=== PATIENT | female | born 1950 | race Caucasian/White ===

== ENCOUNTER → 2016-06-04 | Outpatient (CLI) | payer MEDICARE, BC ==
[2016-06-04 11:36] LABS: Blood Urea Nitrogen 8 mg/dL (7-17); Non-African American GFR(MDRD) >60 (>60 ml/min/1.73 sqM)
--- NOTE | 2016-06-04 12:22 | CT ---
EXAMINATION TYPE: CT angio chest DATE OF EXAM: 06/04/2016 12:17 PM COMPARISON: Previous study dated 04/22/2016 HISTORY: SOB, possible PE CT DLP: 458 mGycm Automated exposure control for dose reduction was used. CONTRAST: CTA scan of the thorax is performed with IV Contrast, patient injected with 100 mL of Omnipaque 350, pulmonary embolism protocol. . FINDINGS: There has been a previous right-sided mastectomy. There is some mild groundglass opacity there is a stable 4.8 mm nodule in the left upper lobe. There is a second, stable 3.6 mm nodule in the lateral aspect of the right upper lobe. At least one other, subcentimeter nodular opacity is noted along the major fissure on the right. There is atelectatic change present in the left lingula. There is no significant axillary or internal mammary adenopathy. There has developed an 8 mm pretrach eal lymph node. There is some stable adenopathy in the right hilum. This examination is negative for pulmonary embolus. The aorta is normal in caliber without evidence of dissection. There is no pleural or pericardial fluid identified. Visualized portions of the upper abdomen are unremarkable. IMPRESSION: 1. THIS EXAMINATION IS NEGATIVE FOR PULMONARY EMBOLUS. 2. MILD GROUNDGLASS OPACITY WITHIN THE UPPER LOBES BILATERALLY MAY REPRESENT ONGOING ALVEOLITIS. 4. STABLE, BILATERAL PULMONARY NODULES. 5. NEW ADENOPATHY IN THE PRETRACHEAL REGION. 6. STATUS POST RIGHT-SIDED MASTECTOMY.
== END | disposition home or self-care (01) ==
LOC: RADCTMAIN 11:07
PROVIDERS: ATTEND Internal Medicine Sleep Medicine
DX: R91.8 Other nonspecific abnormal finding of lung field (principal); R59.0 Localized enlarged lymph nodes; Z90.11 Acquired absence of right breast and nipple
CPT/HCPCS: 82565; 84520; 71275; 36415; Q9967

== ENCOUNTER → 2016-07-23 | Outpatient (CLI) | payer MEDICARE, BC ==
--- NOTE | 2016-07-23 09:05 | US ---
EXAMINATION TYPE: US thyroid st tissue head/neck DATE OF EXAM: 07/23/2016 8:19 AM COMPARISON: Previous study dated 02/20/2016. CLINICAL HISTORY: Nodule E04.1. GLAND SIZE: Right Lobe: 3.7 x 1.6 x 1.2 cm Overall Parenchyma: heterogenous Left Lobe: 3.3 x 1.7 x 1.3 cm Overall Parenchyma: heterogeneous Isthmus Thickness: 0.3 cm NODULES RIGHT: # of nodules measured on right: 1 1. 0.4 X 0.3 x 0.4 cm hypoechoic solid nodule at the lower pole with well-defined margins; . This nodule is wider than tall Prior size: 0.4 x 0.3 x 0.4 cm LEFT: # of nodules measured on left: 0 ISTHMUS: # of nodules measured in the isthmus: 0 TECHNOLOGIST IMPRESSION: Bilateral neck scanned, no abnormal lymphadenopathy noted. stable small nodule IMPRESSION: Stable, right-sided thyroid nodule.
== END | disposition home or self-care (01) ==
LOC: RADUSWWP 07:49
PROVIDERS: ATTEND Family Medicine
DX: E04.1 Nontoxic single thyroid nodule (principal)
CPT/HCPCS: 76536

== ENCOUNTER → 2016-11-12 | Outpatient (CLI) | payer MEDICARE, BC ==
[2016-11-12 07:18] LABS: Blood Urea Nitrogen 18 mg/dL (7-17); Non-African American GFR(MDRD) >60 (>60 ml/min/1.73 sqM)
--- NOTE | 2016-11-12 08:32 | CT ---
EXAMINATION TYPE: CT chest w con DATE OF EXAM: 11/12/2016 COMPARISON: CTA 06/04/2016 HISTORY: Follow up to prior abn CT, history of breast CA CT DLP: 463.6 (chest and shoulder imaging) mGycm, Automated exposure control for dose reduction was u sed. CONTRAST: Performed injected with 100 mL of Omnipaque 300. TECHNIQUE: Axial images were obtained at 5 mm thick sections. Reconstructed images are reviewed on [id number] computer in the coronal plane. FINDINGS: Portion of the thyroid visualized is normal. There is some streak opacities within the lingula and right middle lobe most likely on the basis of a telectasis. Mild pneumonia is not excluded. Other etiologies including neoplasm are considered less l ikely. The thickening along the right mediastinal border within the right middle lobe was present pre viously and appears stable. Lingular streak opacities are new. No enlarged mediastinal or hilar adenopathy is evident. Stable small mediastinal lymph nodes remain present. The ascending aorta diameter at the level of the main pulmonary artery is 3.3 cm. The main pulmonary artery diameter at the bifurcation is 2.2 cm. Right mastectomy is evident. Limited CT sections are obtained through the upper abdomen. There may be a retrocaval right renal art davonte. Vascular calcifications within the aorta. Gallbladder surgically absent. Osseous structures within the [id number] are unremarkable. Stimulator leads are within the thoraci c spinal canal. IMPRESSIONS: 1. Streak opacities within the lingula and right middle lobe may be related to atelectasis. Some scar ring is not excluded along the right cardio mediastinal border. This area appears stable from May 2016
--- NOTE | 2016-11-12 08:36 | CT ---
EXAMINATION TYPE: CT shoulder LT w con DATE OF EXAM: 11/12/2016 COMPARISON: NONE HISTORY: Lt shoulder pain, history of breast CA CT DLP: 463.6 (for chest and shoulder imaging) mGycm Automated exposure control for dose reduction was used. CONTRAST: Performed with IV Contrast, patient injected with 100 mL of Omnipaque 300. TECHNIQUE: Axial images 2 mm thick sections. Reconstructed images in the coronal and sagittal plane. Three-D reconstructed images performed separately on the [employer] computer by the technologist of the o sseous structures was performed. This is somewhat limited with contrast present. FINDINGS: Soft tissues through the left shoulder appear normal. No suspicious axillary adenopathy is evident. T he acromioclavicular junction is normal. Clavicle appears unremarkable. Some narrowing of the glenohu meral joint space is present compatible some osteoarthritic degenerative change. No suspicious lytic lesions are evident. No sclerotic lesions are evident. Scapula is unremarkable. Visualized ribs appea r normal. IMPRESSION: 1. NO SUSPICIOUS ACUTE CHANGES LEFT SHOULDER. 2. NO SUSPICIOUS METASTATIC LESIONS IDENTIFIED BY CT.
== END | disposition home or self-care (01) ==
LOC: RADCTMAIN 06:41
PROVIDERS: ATTEND Internal Medicine Rheumatology
DX: R91.8 Other nonspecific abnormal finding of lung field (principal); S46.022A Laceration of muscle(s) and tendon(s) of the rotator cuff of left shoulder, initial encounter
CPT/HCPCS: 82565; 84520; 71260; 36415; 73201; Q9967

== ENCOUNTER → 2017-01-24 | Outpatient (CLI) | payer MEDICARE, BC ==
--- NOTE | 2017-01-24 08:38 | US ---
EXAMINATION TYPE: US thyroid st tissue head/neck DATE OF EXAM: 01/24/2017 COMPARISON: 07/2016 US CLINICAL HISTORY: Goiter E04.9. no thyroid complaints per patient GLAND SIZE: Right Lobe: 4.1 x 1.0 x 1.2 cm Overall Parenchyma: homogenous Left Lobe: 3.4 x 1.5 x 1.5 cm Overall Parenchyma: homogeneous Isthmus Thickness: 0.3 cm NODULES RIGHT: # of nodules measured on right: 2 1. 0.5 X 0.3 x 0.4 cm hypoechoic solid nodule at the lower pole with well-defined margins. This no dule is wider than tall and shows no intranodular vascularity. Prior size: 0.4 x 0.3 x 0.4 cm 2. 0.4 X 0.3 x 0.3 cm hypoechoic solid nodule at the mid pole with well-defined margins. This nodul e is wider than tall and shows no intranodular vascularity. Prior size: not seen on prior LEFT: # of nodules measured on left: 1 1. 0.4 X 0.2 x 0.2 cm hypoechoic cystic nodule at the mid pole with well-defined margins. This nod ule is wider than tall and shows no intranodular vascularity. Prior size: not seen on prior ISTHMUS: # of nodules measured in the isthmus: 0 Bilateral neck scanned, no evidence of lymphadenopathy. IMPRESSION: Overall stable subcentimeter right thyroid nodule and two new subcentimeter thyroid nodules in a none nlarged and otherwise homogeneous thyroid gland.
== END | disposition home or self-care (01) ==
LOC: RADUSWWP 08:04
PROVIDERS: ATTEND Family Medicine
DX: E04.2 Nontoxic multinodular goiter (principal)
CPT/HCPCS: 76536

== ENCOUNTER 2017-07-02 14:19 | Inpatient (IN) | payer MEDICARE, BC ==
[2017-07-02] MEDS ORDERED: DILTIAZEM 5 MG/ML 5 ML VIAL IVP STA (14:49)
[2017-07-02] MEDS ORDERED: SODIUM CHLORIDE 0.9% 1,000 ML IV STA (14:49)
[2017-07-02] MEDS ORDERED: DILTIAZEM 125 MG in SODIUM CHLORIDE 0.9% 100 ML IV ONE (14:49)
--- NOTE | 2017-07-02 15:48 | ED ---
General Adult HPI - General Chief complaint: Chest Pain Stated complaint: Chest Pain Time Seen by Provider: 07/02/17 14:48 Source: patient, RN notes reviewed, old records reviewed Mode of arrival: wheelchair Limitations: no limitations - History of Present Illness Initial comments: This is a 67-year-old female to the ER for evaluation. This patient is a for evaluation regarding chest pain neck pain. Patient has history of heart disease history of COPD. No recent change in medications. Patient states earlier today she began having some tightness in her throat indigestion and chest pain. Pain symptoms are worse than normal causing her discomfort emergency room for evaluation. Patient's very anxious, states her heart is racing and she feels flushed. No modifying factors for patient's symptoms. Patient denies any recent cough or congestion, no fevers. No travel history, no current shortness of breath - Related Data Home Medications Medication Instructions Recorded Confirmed Albuterol Sulfate [Proair Hfa] 2 puff INHALATION RT-Q6H PRN 09/12/14 07/02/17 Cholecalciferol [Vitamin D3] 2,000 unit PO DAILY 09/12/14 07/02/17 Lisinopril [Zestril] 5 mg PO BID 09/12/14 07/02/17 Metoprolol Succinate [Toprol XL] 25 mg PO BID 09/12/14 07/02/17 Nitroglycerin Sl Tabs [Nitrostat] 0.4 mg SUBLINGUAL Q5M PRN 09/12/14 07/02/17 Rosuvastatin Calcium [Crestor] 40 mg PO HS 09/12/14 07/02/17 Beclomethasone Dipropionate [Qvar 1 puff INHALATION RT-BID 07/02/17 07/02/17 80 mcg] Ezetimibe [Zetia] 10 mg PO HS 07/02/17 07/02/17 Ipratropium-Albuterol Nebulize 3 ml INHALATION RT-QID PRN 07/02/17 07/02/17 [Duoneb 0.5 mg-3 mg/3 ml Soln] Omeprazole 20 mg PO DAILY 07/02/17 07/02/17 Previous Rx's Medication Instructions Recorded Aspirin 81 mg PO DAILY chew 04/30/16 Sodium Chloride 0.65% Nasal [Deep 2 spray NASAL QID PRN #0 spray 04/30/16 Sea (Saline)] Allergies Allergy/AdvReac Type Severity Reaction Status Date / Time amoxicillin trihydrate Allergy Itching Verified 07/02/17 15:57 [From Augmentin] calcium Allergy Burning on Verified 07/02/17 15:57 inside itching on outside Cephalosporins Allergy Burning on Verified 07/02/17 15:57 inside -itching on outside loratadine [From Claritin] Allergy Burning on Verified 07/02/17 15:57 inside- itching on outside NSAIDS (Non-Steroidal Allergy Burning on Verified 07/02/17 15:57 Anti-Inflamma inside-itching on outside potassium clavulanate Allergy Itching Verified 07/02/17 15:57 [From Augmentin] prednisone Allergy Burning on Verified 07/02/17 15:57 inside -itching on outside soy Allergy Burning on Verified 07/02/17 15:57 inside - itching on outside sulfamethoxazole Allergy Burning on Verified 07/02/17 15:57 [From Bactrim] inside -itching on outside tramadol HCl [From Ultram] Allergy Burning on Verified 07/02/17 15:57 inside -itching on outside trimethoprim [From Bactrim] Allergy Burning on Verified 07/02/17 15:57 inside -itching on outside steroids Allergy Burning on Uncoded 04/21/16 22:27 inside-itching on outside Review of Systems ROS Statement: Those systems with pertinent positive or pertinent negative responses have been documented in the HPI. ROS Other: All systems not noted in ROS Statement are negative. Past Medical History Past Medical History: Asthma, Cancer, Chest Pain / Angina, COPD, GERD/Reflux, Hyperlipidemia, Osteoarthritis (OA) Additional Past Medical History / Comment(s): HX PVC'S,IBS, CHRONIC LOW BACK PAIN RADIATING INTO RODRICK THIGHS-BULGING CERVICAL DISC,-, RT BREAST CA, back stimulator implant History of Any Multi-Drug Resistant Organisms: None Reported Past Surgical History: Breast Surgery, Section, Cholecystectomy Additional Past Surgical History / Comment(s): MASTECTOMY RT BREAST- NO IV'S OR BP RT ARM-LYMPHEDEMA RT ARM,MANIPULATION 04/17/14 LT ARM,RT ROATOR CUFF, STRABISMUS EYE SURGERY @ AGE 48, CTR LT WRIST,LT GREAT TOE HAS T SHAPED INPLANT IN, Past Anesthesia/Blood Transfusion Reactions: No Reported Reaction Past Psychological History: Anxiety Smoking Status: Former smoker Past Alcohol Use History: None Reported Past Drug Use History: None Reported - Past Family History Mother Family Medical History: Deep Vein Thrombosis (DVT) Additional Family Medical History / Comment(s): OSTEOPOROSIS General Exam Limitations: no limitations General appearance: alert, in no apparent distress, anxious Head exam: Present: atraumatic, normocephalic, normal inspection Eye exam: Present: normal appearance, PERRL, EOMI. Absent: scleral icterus, conjunctival injection, periorbital swelling ENT exam: Present: normal exam, mucous membranes moist Neck exam: Present: normal inspection. Absent: tenderness, meningismus, lymphadenopathy Respiratory exam: Present: normal lung sounds bilaterally. Absent: respiratory distress, wheezes, rales, rhonchi, stridor Cardiovascular Exam: Present: tachycardia, irregular rhythm, normal heart sounds. Absent: systolic murmur, diastolic murmur, rubs, gallop, clicks GI/Abdominal exam: Present: soft, normal bowel sounds. Absent: distended, tenderness, guarding, rebound, rigid Extremities exam: Present: normal inspection, full ROM, normal capillary refill. Absent: tenderness, pedal edema, joint swelling, calf tenderness Back exam: Present: normal inspection Neurological exam: Present: alert, oriented X3, CN II-XII intact Psychiatric exam: Present: normal affect, normal mood Skin exam: Present: warm, dry, intact, normal color. Absent: rash Course Vital Signs 07/02/17 07/02/17 15:03 15:33 Temperature 97.1 F L Pulse Rate 86 88 Respiratory 20 Rate Blood Pressure 131/75 140/93 O2 Sat by Pulse 97 97 Oximetry - Reevaluation(s) Reevaluation #1: 07/02/17 16:35 Patient spontaneously converted from nature for ablation back to normal sinus rhythm Reevaluation #2: 07/02/17 16:35 Spoke with patient at length regarding diagnosis, prognosis and treatment. Patient's questions are answered EKG Findings - EKG Comments: EKG Findings:: EKG shows atrial fibrillation with RVR rate 160, QRS 114, QTc 491. Repeat. EKG shows normal sinus rhythm rate of 83, [place] 1:30, QRS 104, QTC 425 Medical Decision Making - Medical Decision Making 67 female the ER with a new onset atrial fibrillation with RVR, patient spontaneously cardioverted here in the emergency room. Patient does admit to occasional chest pain continued chest pain. Patient be admitted for cardiac observation, anticoagulation - Lab Data Result diagrams: 07/02/17 15:32 07/02/17 15:32 Lab Results 07/02/17 07/02/17 07/02/17 Range/Units 15:32 15:32 15:32 WBC 8.2 (3.8-10.6) k/uL RBC 4.84 (3.80-5.40) m/uL Hgb 14.2 (11.4-16.0) gm/dL Hct 42.8 (34.0-46.0) % MCV 88.3 (80.0-100.0) fL MCH 29.3 (25.0-35.0) pg MCHC 33.1 (31.0-37.0) g/dL RDW 13.4 (11.5-15.5) % Plt Count 260 (150-450) k/uL Neutrophils % 67 % Lymphocytes % 23 % Monocytes % 5 % Eosinophils % 3 % Basophils % 0 % Neutrophils # 5.5 (1.3-7.7) k/uL Lymphocytes # 1.9 (1.0-4.8) k/uL Monocytes # 0.4 (0-1.0) k/uL Eosinophils # 0.2 (0-0.7) k/uL Basophils # 0.0 (0-0.2) k/uL Sodium 142 (137-145) mmol/L Potassium 4.6 (3.5-5.1) mmol/L Chloride 105 (98-107) mmol/L Carbon Dioxide 26 (22-30) mmol/L Anion Gap 11 mmol/L BUN 19 H (7-17) mg/dL Creatinine 0.70 (0.52-1.04) mg/dL Est GFR (MDRD) Af Amer >60 (>60 ml/min/1.73 sqM) Est GFR (MDRD) Non-Af >60 (>60 ml/min/1.73 sqM) Glucose 93 (74-99) mg/dL Plasma Lactic Acid Satinder (0.7-2.0) mmol/L Calcium 9.4 (8.4-10.2) mg/dL Phosphorus 4.4 (2.5-4.5) mg/dL Magnesium 2.2 (1.6-2.3) mg/dL Total Bilirubin 0.5 (0.2-1.3) mg/dL AST 32 (14-36) U/L ALT 33 (9-52) U/L Alkaline Phosphatase 106 (38-126) U/L Total Creatine Kinase 134 (30-135) U/L CK-MB (CK-2) 1.2 (0.0-2.4) ng/mL CK-MB (CK-2) Rel Index 0.9 Troponin I <0.012 (0.000-0.034) ng/mL NT-Pro-B Natriuret Pep pg/mL Total Protein 7.2 (6.3-8.2) g/dL Albumin 4.2 (3.5-5.0) g/dL 07/02/17 07/02/17 Range/Units 15:32 15:32 WBC (3.8-10.6) k/uL RBC (3.80-5.40) m/uL Hgb (11.4-16.0) gm/dL Hct (34.0-46.0) % MCV (80.0-100.0) fL MCH (25.0-35.0) pg MCHC (31.0-37.0) g/dL RDW (11.5-15.5) % Plt Count (150-450) k/uL Neutrophils % % Lymphocytes % % Monocytes % % Eosinophils % % Basophils % % Neutrophils # (1.3-7.7) k/uL Lymphocytes # (1.0-4.8) k/uL Monocytes # (0-1.0) k/uL Eosinophils # (0-0.7) k/uL Basophils # (0-0.2) k/uL Sodium (137-145) mmol/L Potassium (3.5-5.1) mmol/L Chloride (98-107) mmol/L Carbon Dioxide (22-30) mmol/L Anion Gap mmol/L BUN (7-17) mg/dL Creatinine (0.52-1.04) mg/dL Est GFR (MDRD) Af Amer (>60 ml/min/1.73 sqM) Est GFR (MDRD) Non-Af (>60 ml/min/1.73 sqM) Glucose (74-99) mg/dL Plasma Lactic Acid Satinder 1.1 (0.7-2.0) mmol/L Calcium (8.4-10.2) mg/dL Phosphorus (2.5-4.5) mg/dL Magnesium (1.6-2.3) mg/dL Total Bilirubin (0.2-1.3) mg/dL AST (14-36) U/L ALT (9-52) U/L Alkaline Phosphatase (38-126) U/L Total Creatine Kinase (30-135) U/L CK-MB (CK-2) (0.0-2.4) ng/mL CK-MB (CK-2) Rel Index Troponin I (0.000-0.034) ng/mL NT-Pro-B Natriuret Pep 168 pg/mL Total Protein (6.3-8.2) g/dL Albumin (3.5-5.0) g/dL - Radiology Data Radiology results: report reviewed (Chest x-rays negative for acute disease), image reviewed Disposition Clinical Impression: Chest pain, Atrial fibrillation with RVR Disposition: ADMITTED IP TO THIS HOSP Condition: Good Referrals: Fortino Souza DO [Primary Care Provider] - 1-2 days
[2017-07-02 15:50] LABS: Basophils % (A) 0 %; Eosinophils # (A) 0.2 k/uL (0-0.7); Eosinophils % (A) 3 %; HCT 42.8 % (34.0-46.0); HGB 14.2 gm/dL (11.4-16.0); Lymphocytes # (A) 1.9 k/uL (1.0-4.8); Lymphocytes % (A) 23 %; MCH 29.3 pg (25.0-35.0); MCHC 33.1 g/dL (31.0-37.0); MCV 88.3 fL (80.0-100.0); Monocytes # (A) 0.4 k/uL (0-1.0); Monocytes % (A) 5 %; Neutrophils # (A) 5.5 k/uL (1.3-7.7); Neutrophils % (A) 67 %; Platelet Count 260 k/uL (150-450); RBC 4.84 m/uL (3.80-5.40); RDW 13.4 % (11.5-15.5); WBC 8.2 k/uL (3.8-10.6)
[2017-07-02 16:13] LABS: ALT 33 U/L (9-52); AST 32 U/L (14-36); Albumin 4.2 g/dL (3.5-5.0); Alkaline Phosphatase 106 U/L (38-126); Anion Gap 11 mmol/L; Blood Urea Nitrogen 19 mg/dL (7-17); Calcium 9.4 mg/dL (8.4-10.2); Carbon Dioxide 26 mmol/L (22-30); Chloride 105 mmol/L (98-107); Creatine Kinase 134 U/L (30-135); Glucose 93 mg/dL (74-99); Magnesium 2.2 mg/dL (1.6-2.3); Phosphorus 4.4 mg/dL (2.5-4.5); Potassium 4.6 mmol/L (3.5-5.1); Sodium 142 mmol/L (137-145); Total Bilirubin 0.5 mg/dL (0.2-1.3); Total Protein 7.2 g/dL (6.3-8.2)
[2017-07-02 16:24] LABS: Creatine Kinase MB 1.2 ng/mL (0.0-2.4); Troponin I <0.012 ng/mL (0.000-0.034)
--- NOTE | 2017-07-02 16:28 | XR ---
EXAMINATION TYPE: XR chest 2V DATE OF EXAM: 07/02/2017 COMPARISON: 04/27/2016 HISTORY: 67-year-old female with weakness TECHNIQUE: PA and lateral views FINDINGS: The cardiomediastinal silhouette, aorta, and pulmonary vasculature are within normal limits. Mild int erstitial prominence as a chronic appearance. Bands of atelectasis in the lower lungs. Spinal stimula tor array centered along the mid thoracic spinal canal. Lungs and pleural spaces are clear. IMPRESSION: Chronic appearing changes. Additional bands of atelectasis in the lower lungs. Otherwise, no acute pr ocess seen.
[2017-07-02] MEDS ORDERED: ASPIRIN 81 MG PO STA (16:32)
[2017-07-02] MEDS ORDERED: HEPARIN SODIUM,PORCINE 5,000 UNIT/ML 1 ML VIAL IV PRN (16:32)
[2017-07-02] MEDS ORDERED: NITROGLYCERIN SL TABS 0.4 MG TAB SUBLINGUAL PRN (16:32)
[2017-07-02] MEDS ORDERED: HEPARIN SODIUM,PORCINE 5,000 UNIT/ML 1 ML VIAL IV ONE (16:32)
[2017-07-02 16:35] LABS: INR 1.1 (<1.2); Partial Thromboplastin Time 23.6 sec (22.0-30.0); Prothrombin Time 10.5 sec (9.0-12.0)
[2017-07-02 16:40] LABS: D-Dimer 1.01 mg/L FEU (<0.60)
[2017-07-02] MEDS ORDERED: HEPARIN SOD,PORK IN 0.45% NACL 25,000 UNIT in 0.45% NACL 1 500ML.BAG IV SCH (16:45)
[2017-07-02] MEDS ORDERED: RX INFO: IV CONTRAST WAS GIVEN 1 EACH MISC MISCELLANE PRN (16:47)
--- NOTE | 2017-07-02 18:19 | CT ---
EXAMINATION TYPE: CT angio chest DATE OF EXAM: 07/02/2017 COMPARISON: 11/12/2016 HISTORY: 67-year-old female Chest pain and A-fib TECHNIQUE: Contiguous axial scanning of the chest performed with IV Contrast, patient injected with 1 00ml mL of Omnipaque 350. Coronal/sagittal MIP reconstructions performed. CT DLP: 381.7 mGycm Automated exposure control for dose reduction was used. FINDINGS: Heart normal size without pericardial effusion. Coronary vessel calcifications are present and are a marker for coronary artery disease. Aortic valvular calcifications are also noted. Variant direct takeoff of the left vertebral artery directly from the aortic arch. Aorta is normal ca liber. Borderline satisfactory opacification of the pulmonary arterial system at 227 Hounsfield units. Withi n this limitation, no pulmonary embolus is seen. Scattered nonenlarged mediastinal and hilar lymph nodes some of which show punctate calcifications stallworth ggesting prior granulomatous disease. Mild to moderate central interstitial thickening along the bronchovascular bundles. Minimal emphysema tous cysts are present in the upper lungs. 4 mm subpleural pulmonary nodule peripheral right upper lo be axial image 45 can be reassessed in one year. Stable curvilinear and strandy densities in the inferior right middle lobe and inferior lingula sugge sting pleural-parenchymal scarring. No consolidation or pleural effusion. Status post right mastectomy. Visualized upper abdomen shows an anterior splenule and cholecystectomy clips. Bones: Spinal stimulator array centered along the mid to lower thoracic spinal canal. No osseous dest ructive process. IMPRESSION: 1. BORDERLINE LIMITED OPACIFICATION OF THE PULMONARY ARTERIAL SYSTEM. FOR THIS LIMITATION, NO PULMONARY EMBOLUS SEEN. 2. Stable scattered prominent nonenlarged calcified and noncalcified mediastinal and hilar lymph node s. Findings suggest prior granulomatous disease. 3. Central interstitial thickening could reflect bronchitis, asthma, or sequela of sarcoid given the mediastinal findings. 4. Large bands of scarring anteriorly in the lower lungs. No acute process seen.
[2017-07-02] MEDS ORDERED: ALBUTEROL NEBULIZED 2.5 MG/3 ML INHALATION PRN (18:52)
[2017-07-02] MEDS ORDERED: SODIUM CHLORIDE 0.65% NASAL SPRAY 44 ML BTL NASAL PRN (18:52)
[2017-07-02] MEDS ORDERED: IPRATROPIUM-ALBUTEROL 3 ML NEB INHALATION PRN (18:52)
[2017-07-02] MEDS ORDERED: TEMAZEPAM 15 MG CAP PO PRN (19:08)
[2017-07-02] MEDS ORDERED: ALPRAZolam 0.25 MG TAB PO PRN (19:08)
[2017-07-02 19:50] LABS: Appearance,Urine Clear (Clear); Bilirubin,Urine Negative (Negative); Blood,Urine Negative (Negative); Color,Urine Light Yellow; Glucose,Urine (UA) Negative (Negative); Ketones,Urine Negative (Negative); Leukocyte Esterase,Urine Negative (Negative); Nitrite,Urine Negative (Negative); Protein,Urine Negative (Negative); Urobilinogen,Urine <2.0 mg/dL (<2.0)
--- NOTE | 2017-07-02 20:32 | HP ---
HISTORY AND PHYSICAL CHIEF COMPLAINTS: Chest pain as well as tachycardia. HISTORY OF PRESENT ILLNESS: This 67-year-old woman with a past medical history of multiple medical problems, including COPD, history of asthma, GERD, hypertension, hyperlipidemia, DJD being followed by Dr. Souza in the outpatient setting was admitted with COPD exacerbation and other multiple complex medical issues in April last year. Currently the patient is complaining of neck and chest discomfort. Patient is also on tachycardia which is fluctuating and because of concerns, the patient came to [facility] and was admitted for further evaluation and treatment. Patient was found to have atrial fibrillation with fast ventricular rate, which was converted to normal sinus rhythm. Otherwise there is no history of any fever, rigors. No history of headache, loss of consciousness, seizures. IV heparin has been initiated. PAST MEDICAL HISTORY: History of COPD, asthma, GERD, hypertension, hyperlipidemia, history of breast surgery, . MEDICATIONS PRIOR TO ADMISSION: Include home medications are: 1. Saline spray. 2. Crestor 40 mg q.h.s. 3. Omeprazole 20 mg daily. 4. Nitrostat 0.4 sublingual mg p.r.n. 5. Toprol-XL 25 mg p.o. b.i.d. 6. Zestril 5 mg p.o. b.i.d. 7. DuoNeb q.i.d. and p.r.n. 8. Zetia 10 mg q.h.s. 9. Vitamin D3 2000 daily. 10.Qvar 80 one puff b.i.d. 11.Aspirin 81 mg daily. 12.Albuterol 2 puffs every 6 hours p.r.n. ALLERGIES: Multiple allergies: AMOXICILLIN, CALCIUM, CEPHALOSPORIN, CLARITIN, SUMEET, AUGMENTIN, PREDNISONE, SOY, BACTRIM, ULTRAM, STEROIDS. FAMILY HISTORY: History of DVT and osteoporosis in the family. SOCIAL HISTORY: Previous history of smoking. No history of current smoking or alcohol intake. REVIEW OF SYSTEMS: ENT: No diminished hearing, diminished vision. CARDIOVASCULAR: As mentioned earlier. RESPIRATORY: As mentioned earlier. GI: No nausea or vomiting. : No dysuria. NERVOUS: No numbness or weakness. ALLERGY/IMMUNOLOGY: No asthma or hay fever. MUSCULOSKELETAL: As mentioned earlier. HEMATOLOGY/ONCOLOGY: No history of anemia. ENDOCRINE: No history of diabetes, hypothyroidism. CONSTITUTIONAL: As mentioned earlier. DERMATOLOGY: Negative. RHEUMATOLOGY: Negative. PSYCHIATRY: As mentioned earlier. PHYSICAL EXAMINATION: Alert and oriented x3. Pulse 84, blood pressure 160/81, respiration 18, temperature 97.1, pulse ox 98% on 2L. HEENT: Conjunctivae normal. Oral mucosa moist. NECK: No jugular venous distention. No carotid bruits. No lymph node enlargement. CARDIOVASCULAR: S1, S2 muffled. RESPIRATORY: Breath sounds diminished in the bases. No rhonchi. No crackles. ABDOMEN: Soft, nontender. No mass palpable. LEGS: No edema. No swelling. NERVOUS SYSTEM: Higher functions as mentioned earlier. Moves all 4 limbs. No focal motor or sensory deficits. LYMPHATIC: No lymphadenopathy in neck or axillae. SKIN: No ulcer, rash or bleeding. LABS: At this time show CBC within normal limits. D-dimer is 1.01. BUN is 19. ASSESSMENT: 1. Atrial fibrillation with fast ventricular rate with paroxysmal atrial fibrillation. 2. Chest pain, rule out coronary artery disease. 3. History of chronic obstructive pulmonary disease, asthma. 4. History of respiratory failure. 5. History of gastroesophageal reflux disease. 6. Hyperlipidemia. 7. History of degenerative joint disease. 8. History of silent myocardial infarction. 9. History of mastectomy. 10.History of anxiety. 11.Remote history of nicotine dependence. RECOMMENDATIONS AND DISCUSSION: In this 67-year-old woman who presented with multiple complex medical issues, will monitor the patient closely, continue the current medical management and symptomatic treatment. The patient was given Cardizem drip. I would recommend continuing the monitoring. Cardiology consultation. TSH has been ordered which is normal at this time. Prognosis guarded because of multiple complex medical issues. Further recommendations to follow. Will evaluate the patient with Cardiology, had previously been followed in the outpatient setting. Apparently a stress test is pending for the patient. MMODL / IJN: [id number] /
[2017-07-02] MEDS: BUDESONIDE 1 MG/2 ML NEBU INHALATION SCH (20:37)
[2017-07-02] MEDS: LISINOPRIL 5 MG TAB PO SCH (20:48)
[2017-07-02] MEDS: METOPROLOL TARTRATE 50 MG TAB PO SCH (20:49)
[2017-07-02] MEDS: ACETAMINOPHEN TAB 500 MG TAB PO PRN (20:52)
[2017-07-02] MEDS ORDERED: EZETIMIBE 10 MG TAB PO SCH (21:00)
[2017-07-02] MEDS ORDERED: ATORVASTATIN 80 MG TAB PO SCH (21:00)
[2017-07-02 23:17] VITALS: BMI 33.0
[2017-07-02 23:48] LABS: Creatine Kinase MB 1.5 ng/mL (0.0-2.4)
[2017-07-02 23:55] LABS: Troponin I 0.035 ng/mL (0.000-0.034)
[2017-07-03 04:01] LABS: Basophils % (A) 0 %; Eosinophils # (A) 0.2 k/uL (0-0.7); Eosinophils % (A) 2 %; HCT 38.9 % (34.0-46.0); HGB 11.9 gm/dL (11.4-16.0); Lymphocytes # (A) 2.2 k/uL (1.0-4.8); Lymphocytes % (A) 22 %; MCH 27.9 pg (25.0-35.0); MCHC 30.5 g/dL (31.0-37.0); MCV 91.4 fL (80.0-100.0); Monocytes # (A) 0.6 k/uL (0-1.0); Monocytes % (A) 6 %; Neutrophils # (A) 6.8 k/uL (1.3-7.7); Neutrophils % (A) 67 %; Platelet Count 215 k/uL (150-450); RBC 4.26 m/uL (3.80-5.40); RDW 13.3 % (11.5-15.5)
[2017-07-03 04:24] LABS: Anion Gap 8 mmol/L; Blood Urea Nitrogen 17 mg/dL (7-17); Calcium 8.7 mg/dL (8.4-10.2); Carbon Dioxide 28 mmol/L (22-30); Chloride 107 mmol/L (98-107); Cholesterol 136 mg/dL (<200); Glucose 83 mg/dL (74-99); HDL Cholesterol 49 mg/dL (40-60); LDL Cholesterol,Calculated 62 mg/dL (0-99); Potassium 4.2 mmol/L (3.5-5.1); Sodium 143 mmol/L (137-145); Triglycerides 127 mg/dL (<150)
[2017-07-03 04:35] LABS: Creatine Kinase MB 1.8 ng/mL (0.0-2.4); Troponin I 0.028 ng/mL (0.000-0.034)
[2017-07-03] MEDS: ACETAMINOPHEN TAB 500 MG TAB PO PRN (04:57)
[2017-07-03 05:20] LABS: Appearance,Urine Clear (Clear); Bilirubin,Urine Negative (Negative); Blood,Urine Negative (Negative); Color,Urine Light Yellow; Glucose,Urine (UA) Negative (Negative); Ketones,Urine Negative (Negative); Leukocyte Esterase,Urine Negative (Negative); Nitrite,Urine Negative (Negative); Protein,Urine Negative (Negative); Urobilinogen,Urine <2.0 mg/dL (<2.0)
[2017-07-03] MEDS ORDERED: PANTOPRAZOLE 40 MG TABLET PO SCH (07:30)
[2017-07-03 08:08] VITALS: RESP 16
[2017-07-03] MEDS: METOPROLOL TARTRATE 50 MG TAB PO SCH (08:14)
[2017-07-03] MEDS: LISINOPRIL 5 MG TAB PO SCH (08:14)
[2017-07-03] MEDS ORDERED: CHOLECALCIFEROL 1,000 UNIT TAB PO SCH (09:00)
[2017-07-03] MEDS ORDERED: ASPIRIN 81 MG PO SCH (09:00)
[2017-07-03] MEDS ORDERED: ASPIRIN 325 MG TAB PO SCH (09:00)
[2017-07-03] MEDS: BUDESONIDE 1 MG/2 ML NEBU INHALATION SCH (09:16)
[2017-07-03] MEDS ORDERED: APIXABAN 5 MG TAB PO SCH (12:45)
[2017-07-03 15:03] VITALS: BP 146/73; PULSE 82; TEMP 99
--- NOTE | 2017-07-03 17:46 | DS ---
DISCHARGE SUMMARY FINAL DIAGNOSES: 1. Atrial fibrillation with fast ventricular rate, paroxysmal atrial fibrillation present on admission, improved. 2. Chest pain, myocardial infarction ruled out. 3. History of chronic obstructive pulmonary disease, asthma. 4. History of respiratory failure. 5. Gastroesophageal reflux disease. 6. Hyperlipidemia. 7. History of degenerative joint disease. 8. History silent myocardial infarction. 9. History of mastectomy. 10.History of anxiety. 11.Remote history of nicotine dependence. DISPOSITION: The patient will be discharged in stable condition with guarded prognosis. HISTORY OF PRESENT ILLNESS: This 67-year-old woman with a past history of multiple medical problems being followed by Dr. Souza in the outpatient setting was admitted with chest pain, as well as atrial fibrillation. The patient was treated symptomatically. Patient converted to normal sinus rhythm. Patient started on Eliquis. Cardiology saw the patient and the patient will be discharged in stable condition with guarded prognosis with the following advice and medications. On exam, vitals are stable. Cardiac. S1, S2 normal. Respiratory is clear to auscultation. Abdomen is soft, nontender. Nervous System: No focal deficit. DISCHARGE ADVICE: 1. Diet is cardiac. 2. Activities limited until followup. 3. Follow up with Dr. Souza in 2-3 days. 4. Follow up with Cardiology as recommended. MEDICATIONS: 1. Albuterol 2 puffs p.r.n. 2. Xanax 0.5 t.i.d. p.r.n. 3. Eliquis 5 mg p.o. b.i.d. 4. Aspirin 81 mg p.o. daily. 5. QVAR 1 puff b.i.d. 6. Vitamin D3 2000 daily. 7. Zetia 10 mg q.h.s. 8. Albuterol and Atrovent updraft q.i.d. and p.r.n. 9. Levaquin 500 mg p.o. daily for 5 days. 10.Zestril 5 mg p.o. b.i.d. 11.Lopressor 50 mg p.o. b.i.d. 12.Nitroglycerin 0.4 mg p.r.n. 13.Omeprazole 20 mg p.o. daily. 14.Crestor 40 mg q.h.s. 15.Saline nasal drops. Once again the patient is discharged in a stable condition with guarded prognosis. MMODL / IJN: [id number] /
--- NOTE | 2017-07-03 23:58 | CONS ---
CONSULTATION HISTORY: Ms. Valeria Atkins is a 67-year-old lady who sees Dr. Stanford in the outpatient setting and her primary care physician is Dr. Souza. She came into the hospital because she felt uncomfortable feeling in her chest and neck and felt that her heart was racing fast. She did not have any dizziness or lightheadedness, but upon arrival to the emergency room she was found to be in atrial fibrillation with a very rapid ventricular rate and she converted to sinus rhythm. She is resting comfortably without symptoms. She denies any chest pain at this time. She has no previous documented evidence of atrial fibrillation. She has hypertension and COPD by history. She sees Dr. Stanford in the outpatient setting. PAST MEDICAL HISTORY: 1. Hypertension. 2. Hypercholesterolemia. 3. Past history of smoking which he quit 14 months ago and COPD. 4. No evidence of any prior documented myocardial infarction or CVA. HOME MEDICATIONS: 1. Crestor. 2. Lisinopril 5 mg daily. 3. Albuterol inhaler. 4. Metoprolol succinate 25 mg daily. 5. Lisinopril 5 mg daily. ALLERGIES: SHE IS ALLERGIC TO AMOXICILLIN, CEPHALOSPORINS, NONSTEROIDALS TO SOME EXTENT AND SULFA. PHYSICAL EXAMINATION: VITAL SIGNS: Blood pressure is 140/70, pulse rate 70 and regular. HEENT: Unremarkable. Fundus was not examined by me. NECK: Supple. There is no JVD. I do not hear a carotid bruit. HEART: Reveals S1, S2 with a short systolic murmur at the base and left sternal border. LUNGS: Clear. ABDOMEN: Soft, nontender. EXTREMITIES: Lower extremities reveal normal pulses, no edema. CENTRAL NERVOUS SYSTEM: Normal. EKG revealed initially nonspecific IVCD of LBBB type and nonspecific ST-T changes, rapid ventricular rate. Repeat EKG revealed sinus mechanism with IVCD and rate of 75 beats per minute. The patient also had a CT angiography because of elevated D-dimer and this was negative for pulmonary embolism. IMPRESSION: 1. Paroxysmal atrial fibrillation, converted to sinus rhythm. 2. Past history of smoking with chronic obstructive pulmonary disease. 3. Hypertension. 4. Hyperlipidemia. RECOMMENDATIONS: I am recommending that we change the beta bailey to 50 mg Lopressor b.i.d. and start her on Eliquis 5 mg b.i.d. She can be discharged on her current medical regimen with the changes as mentioned above and see Dr. Stanford in the next 7 to 10 days. The patient's thyroid function tests were normal. MMFATOU / BRAXTONN: [id number] /
== END 2017-07-03 17:24 | disposition home or self-care (01) | DRG 310 ==
LOC: EC 14:19 → 6SEL 16:32
PROVIDERS: ADMIT Hospitalist; ATTEND Hospitalist
DX: I48.0 Paroxysmal atrial fibrillation (principal); J44.9 Chronic obstructive pulmonary disease, unspecified; M50.20 Other cervical disc displacement, unspecified cervical region; E78.5 Hyperlipidemia, unspecified; I10 Essential (primary) hypertension; I25.2 Old myocardial infarction; K21.9 Gastro-esophageal reflux disease without esophagitis; K58.9 Irritable bowel syndrome, unspecified; F41.9 Anxiety disorder, unspecified; G89.29 Other chronic pain; M19.90 Unspecified osteoarthritis, unspecified site; M54.5 Low back pain; R07.89 Other chest pain; Z79.82 Long term (current) use of aspirin; Z79.899 Other long term (current) drug therapy; Z85.3 Personal history of malignant neoplasm of breast; Z87.891 Personal history of nicotine dependence; Z90.49 Acquired absence of other specified parts of digestive tract; Z88.6 Allergy status to analgesic agent; Z88.1 Allergy status to other antibiotic agents; Z88.5 Allergy status to narcotic agent; Z88.0 Allergy status to penicillin; Z88.2 Allergy status to sulfonamides; Z88.8 Allergy status to other drugs, medicaments and biological substances; Z91.018 Allergy to other foods
CPT/HCPCS: 36415; 71046; 71275; 80048; 80053; 80061; 81003; 82550; 82553; 83605; 83735; 83880; 84100; 84443; 84484; 85025; 85379; 85610; 85730; 87086; 93005; 94640; 96365; 96366; 96376; 99285

== ENCOUNTER → 2017-08-01 | Outpatient (CLI) | payer MEDICARE, BC ==
--- NOTE | 2017-08-02 11:25 | US ---
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 follow up exam GLAND SIZE: Right Lobe: 3.6 x 1.0 x 1.2 cm Overall Parenchyma: homogenous Left Lobe: 3.3 x 1.2 x 1.0 cm Overall Parenchyma: homogeneous Isthmus Thickness: 0.5 cm NODULES RIGHT: # of nodules measured on right: 2 1. 0.4 X 0.2 x 0.4 cm hypoechoic cystic nodule at the mid pole with well-defined margins. This nod ule is wider than tall and shows no intranodular vascularity. Prior size: 0.5 x 0.3 x 0.4 cm 2. 0.5 X 0.4 x 0.4 cm hypoechoic cystic nodule at the lower pole with well-defined margins. This no dule is wider than tall and shows no intranodular vascularity. Prior size: 0.4 x 0.3 x 0.3 cm LEFT: # of nodules measured on left: 1 1. 0.3 X 0.3 x 0.2 cm hypoechoic cystic nodule at the mid pole with well-defined margins. This nod ule is wider than tall and shows no intranodular vascularity. Prior size: 0.4 x 0.2 x 0.2 cm ISTHMUS: # of nodules measured in the isthmus: 0 Bilateral neck scanned, no evidence of lymphadenopathy. IMPRESSION: Overall stable bilateral subcentimeter thyroid nodules in a nonenlarged thyroid gland.
== END | disposition home or self-care (01) ==
LOC: RADUSWWP 16:29
PROVIDERS: ATTEND Family Medicine
DX: E04.2 Nontoxic multinodular goiter (principal)
CPT/HCPCS: 76536

== ENCOUNTER → 2017-08-16 | Outpatient (CLI) | payer MEDICARE, BC ==
--- NOTE | 2017-08-16 08:41 | MM ---
Reason for exam: additional evaluation requested from prior study. Last mammogram was performed 11 years and 7 months ago. History: Patient is postmenopausal and has history of breast cancer at age 55. Family history of breast cancer in aunt at age 60. Mastectomy of the right breast, February 15, 2006. Chemotherapy, 2005. Benign excisional biopsy of the right breast, 2002. Benign excisional biopsy of the right breast, July 27, 2000. Physical Findings: Patient refused breast exam. MG 3D Diag Mammo W/Cad LT CC and MLO view(s) were taken of the left breast. Prior study comparison: August 12, 2016, mammogram. August 12, 2015, mammogram. August 09, 2014, mammogram. The breast tissue is heterogeneously dense. This may lower the sensitivity of mammography. Finding: There are typically benign diffuse/scattered calcifications in the left breast. No suspicious abnormality. No significant changes in finding since August 12, 2016, August 09, 2014, and August 12, 2015. These results were verbally communicated with the patient and result sheet given to the patient on 08/16/17. ASSESSMENT: Benign, BI-RAD 2 RECOMMENDATION: Routine screening mammogram of the left breast in 1 year.
== END | disposition home or self-care (01) ==
LOC: RADMAMWWP 07:56
PROVIDERS: ATTEND Internal Medicine Hematology & Oncology
DX: Z08 Encounter for follow-up examination after completed treatment for malignant neoplasm (principal); Z85.3 Personal history of malignant neoplasm of breast
CPT/HCPCS: 77065; G0279

== ENCOUNTER → 2017-10-21 | Outpatient (CLI) | payer MEDICARE, BC ==
--- NOTE | 2017-10-21 10:15 | CT ---
EXAMINATION TYPE: CT abdomen pelvis w con DATE OF EXAM: 10/21/2017 COMPARISON: NONE INDICATION: Diverticulitis, history of breast CA DLP: 1405.3 mGycm, Automated exposure control for dose reduction was used. CONTRAST: 100 mL of Isovue 300. Study performed with Oral Contrast TECHNIQUE: Axial images were obtained from above the diaphragm to the pubic rami in the axial plane a t 5 mm thick sections. Reconstructed images are reviewed on the computer in the coronal plane. FINDINGS: Limited CT sections are obtained the lung bases. Some infiltrate is in the right middle lobe likely atelectasis. Early pneumonia could be considered. Lung bases are otherwise clear. CT ABDOMEN: Liver: Normal Spleen: Normal Pancreas: Normal Adrenal glands: The adrenal glands are normal. Gallbladder: Surgically absent Kidneys: No masses are evident. No hydronephrosis is present. No cysts are present. Delayed images were obtained through the kidneys, which remain unremarkable. Aorta: Vascular calcification is within the aorta. Inferior vena cava: Normal. CT PELVIS: Loops of bowel within the abdomen and pelvis are normal. There are loops of bowel which are incom pletely distended or lack oral contrast limiting their evaluation. Appendix: Normal as visualized. Urinary bladder: Normal. Genitourinary structures: Uterus and adnexal regions are normal. Osseous structures: No suspicious lytic or sclerotic lesions. Some sacroiliac joint facet degenerativ e changes are present. Electronic device overlies the right gluteal region with leads into the spinal canal. IMPRESSIONS: 1. Mild right middle lobe atelectasis. 2. No suspicious changes of acute diverticulitis.
== END | disposition home or self-care (01) ==
LOC: RADCTMAIN 08:05
PROVIDERS: ATTEND Surgery Plastic and Reconstructive Surgery
DX: K57.30 Diverticulosis of large intestine without perforation or abscess without bleeding (principal)
CPT/HCPCS: 82565; 84520; 74177; 36415; Q9967

== ENCOUNTER → 2018-08-02 | Outpatient (CLI) | payer MEDICARE, BC ==
--- NOTE | 2018-08-02 10:25 | US ---
EXAMINATION TYPE: US thyroid st tissue head/neck DATE OF EXAM: 08/02/2018 COMPARISON: 08/01/2017 CLINICAL HISTORY: E04.9 nontoxic goiter,unspecified. Follow up thyroid nodules GLAND SIZE: Right Lobe: 4.2 x 1.6 x 1.4 cm Overall Parenchyma: homogenous Left Lobe: 3.5 x 1.7 x 1.5 cm Overall Parenchyma: homogeneous Isthmus Thickness: 0.3 cm NODULES RIGHT: # of nodules measured on right: 2 1. 0.3 X 0.2 x 0.3 cm cystic nodule at the mid pole with well-defined margins; . This nodule is wi connie than tall and shows no intranodular vascularity. Prior size: 0.4 x 0.2 x 0.4 cm 2. 0.5 X 0.3 x 0.4 cm cystic nodule at the lower pole with well-defined margins; . This nodule is w ider than tall and shows no intranodular vascularity. Prior size: 0.5 x 0.4 x 0.4 cm LEFT: # of nodules measured on left: 1 1. 0.4 X 0.2 x 0.3 cm hypoechoic cystic nodule at the mid pole with well-defined margins; . This n odule is wider than tall and shows no intranodular vascularity. Prior size: 0.3 x 0.3 x 0.2 cm ISTHMUS: # of nodules measured in the isthmus: 0 Bilateral neck scanned, no evidence of lymphadenopathy. Stable appearing thyroid nodules IMPRESSION: Stable nonspecific thyroid nodularity.
== END | disposition home or self-care (01) ==
LOC: RADUSWWP 07:56
PROVIDERS: ATTEND Family Medicine
DX: E04.1 Nontoxic single thyroid nodule (principal)
CPT/HCPCS: 76536

== ENCOUNTER → 2018-08-17 | Outpatient (CLI) | payer MEDICARE, BC ==
--- NOTE | 2018-08-17 11:56 | MM ---
Reason for exam: screening (asymptomatic). Last mammogram was performed 1 year ago. History: Patient is postmenopausal and has history of breast cancer at age 55. Family history of breast cancer in aunt at age 60. Mastectomy of the right breast, February 15, 2006. Chemotherapy, 2005. Benign excisional biopsy of the right breast, 2002. Benign excisional biopsy of the right breast, July 27, 2000. Physical Findings: A clinical breast exam by your physician is recommended on an annual basis and results should be correlated with mammographic findings. MG 3D Screening Mammo W/Cad CC and MLO view(s) were taken of the left breast. Prior study comparison: August 16, 2017, left breast MG 3d diag mammo w/cad LT. August 12, 2016, mammogram. The breast tissue is heterogeneously dense. This may lower the sensitivity of mammography. There are benign appearing round calcifications in the left breast. There is no discrete abnormality. ASSESSMENT: Benign, BI-RAD 2 RECOMMENDATION: Follow-up diagnostic mammogram of the left breast in 1 year.
== END | disposition home or self-care (01) ==
LOC: RADMAMWWP 07:47
PROVIDERS: ATTEND Internal Medicine Hematology & Oncology
DX: Z12.31 Encounter for screening mammogram for malignant neoplasm of breast (principal); Z90.11 Acquired absence of right breast and nipple
CPT/HCPCS: 77063; 77067

== ENCOUNTER 2018-11-22 08:56 | Day surgery (SDC) | payer MEDICARE, BC ==
[2018-11-15 16:05] VITALS: BMI 31.3
--- NOTE | 2018-11-22 07:46 | P.GSHP ---
History of Present Illness H&P Date: 11/22/18 CHIEF COMPLAINT: GERD HISTORY OF PRESENT ILLNESS: The patient is a 68-year-old female who presents reports gastroesophageal reflux disease. Upper endoscopy was offered for further evaluation and management. PAST MEDICAL HISTORY: Please see list. PAST SURGICAL HISTORY: Please see list. MEDICATIONS: Please see list. ALLERGIES: Please see list. SOCIAL HISTORY: No illicit drug use FAMILY HISTORY: No reports of Crohn disease or ulcerative colitis. REVIEW OF ORGAN SYSTEMS: CONSTITUTIONAL: No reports of fevers or chills. GI: Denies any blood in stools or constipation. PHYSICAL EXAM: VITAL SIGNS: Stable GENERAL: Well-developed and pleasant in no acute distress. HEENT: No scleral icterus. Extraocular movements grossly intact. Moist buccal mucosa. NECK: Supple without lymphadenopathy. CHEST: Unlabored respirations. Equal bilateral excursions. CARDIOVASCULAR: Regular rate and rhythm. Distal 2+ pulses. ABDOMEN: Soft, nondistended. MUSCULOSKELETAL: No clubbing, cyanosis, or edema. ASSESSMENT: 1. Gastroesophageal reflux disease PLAN: 1. Recommend proceeding with an upper endoscopy Past Medical History Past Medical History: Atrial Fibrillation, Asthma, Coronary Artery Disease (CAD), Cancer, Chest Pain / Angina, COPD, GERD/Reflux, Hyperlipidemia, Myocardial Infarction ([place]), Osteoarthritis (OA) Additional Past Medical History / Comment(s): HX PVC'S,IBS, CHRONIC LOW BACK PAIN RADIATING INTO RODRICK THIGHS-BULGING CERVICAL DISC,-, RT BREAST CA, back stimulator implant Last Myocardial Infarction Date:: age 47 History of Any Multi-Drug Resistant Organisms: None Reported Past Surgical History: Breast Surgery, Section, Cholecystectomy, Heart Catheterization Additional Past Surgical History / Comment(s): MASTECTOMY RT BREAST- NO IV'S OR BP RT ARM-LYMPHEDEMA RT ARM,MANIPULATION 04/17/14 LT ARM,RT ROATOR CUFF,STRABISMUS EYE SURGERY @ AGE 48, CTR LT WRIST,LT GREAT TOE HAS T SHAPED INPLANT IN, Past Anesthesia/Blood Transfusion Reactions: No Reported Reaction, Family History of Problems w/ Anesthesia Additional Past Anesthesia/Blood Transfusion Reaction / Comment(s): mom-hard time coming out of it Smoking Status: Former smoker - Past Family History Mother Family Medical History: Deep Vein Thrombosis (DVT) Additional Family Medical History / Comment(s): OSTEOPOROSIS Medications and Allergies Home Medications Medication Instructions Recorded Confirmed Type Albuterol Sulfate [Proair Hfa] 2 puff INHALATION RT-Q6H PRN 09/12/14 11/15/18 History Cholecalciferol [Vitamin D3 (25 2,000 unit PO DAILY 09/12/14 11/15/18 History Mcg = 1000 Iu)] Lisinopril [Zestril] 5 mg PO BID 09/12/14 11/15/18 History Nitroglycerin Sl Tabs [Nitrostat] 0.4 mg SUBLINGUAL Q5M PRN 09/12/14 11/15/18 History Rosuvastatin Calcium [Crestor] 40 mg PO HS 09/12/14 11/15/18 History Aspirin 81 mg PO DAILY chew 04/30/16 11/15/18 Rx Ezetimibe [Zetia] 10 mg PO HS 07/02/17 11/15/18 History Omeprazole 20 mg PO BID 07/02/17 11/15/18 History Apixaban [Eliquis] 5 mg PO BID tab 07/03/17 11/15/18 Rx Metoprolol Tartrate [Lopressor] 50 mg PO BID #60 tab 07/03/17 11/15/18 Rx ALPRAZolam [Xanax] 0.125 mg PO TID PRN 11/15/18 11/15/18 History Cephalexin [Keflex] 500 mg PO Q8HR 11/15/18 11/15/18 History Ipratropium-Albuterol Nebulize 3 ml INHALATION RT-QID PRN 11/15/18 11/15/18 History [Duoneb 0.5 mg-3 mg/3 ml Soln] Allergies Allergy/AdvReac Type Severity Reaction Status Date / Time amoxicillin trihydrate Allergy Itching Verified 11/15/18 15:48 [From Augmentin] calcium Allergy Burning on Verified 11/15/18 15:48 inside itching on outside Cephalosporins Allergy Burning on Verified 11/15/18 15:48 inside -itching on outside loratadine [From Claritin] Allergy Burning on Verified 11/15/18 15:48 inside- itching on outside NSAIDS (Non-Steroidal Allergy Burning on Verified 11/15/18 15:48 Anti-Inflamma inside-itching on outside potassium clavulanate Allergy Itching Verified 11/15/18 15:48 [From Augmentin] prednisone Allergy Burning on Verified 11/15/18 15:48 inside -itching on outside soy Allergy Burning on Verified 11/15/18 15:48 inside - itching on outside sulfamethoxazole Allergy Burning on Verified 11/15/18 15:48 [From Bactrim] inside -itching on outside tramadol HCl [From Ultram] Allergy Burning on Verified 11/15/18 15:48 inside -itching on outside trimethoprim [From Bactrim] Allergy Burning on Verified 11/15/18 15:48 inside -itching on outside steroids Allergy Burning on Uncoded 11/15/18 15:48 inside-itching on outside
[~2018-11-22 08:56] MED LIST: LACTATED RINGERS 1,000 ML IV SCH; LIDOCAINE 1% 20 ML VIAL (10MG/ML) FOR IV START INTRADERMA PRN
[2018-11-22 09:27] VITALS: TEMP 97.7
[2018-11-22] MEDS ORDERED: PROPOFOL 10 MG/ML 20 ML VIAL IV ONE (10:50)
[2018-11-22] MEDS ORDERED: LIDOCAINE 1% INJ 10MG/ML (20 ML MDV) ONE (10:50)
--- NOTE | 2018-11-22 11:20 | P.PCN ---
Date of Procedure: 11/22/18 Description of Procedure: PREOPERATIVE DIAGNOSIS: Gastroesophageal reflux disease. POSTOPERATIVE DIAGNOSIS: Gastritis. Gastroesophageal reflux disease. Diaphragmatic hiatal hernia OPERATION: Esophagogastroduodenoscopy with biopsies along antrum. SURGEON: Jocelyne Jerez MD ANESTHESIA: MAC. INDICATIONS: The patient is a 68-year-old female who presents with a history of reflux disease. Benefits and risks of the procedure were described. Informed consent was obtained. DESCRIPTION: The patient was brought into the endoscopy suite and laid in the left lateral decubitus position. An Olympus gastroscope was passed along the posterior oropharynx down to the distal esophagus where the squamocolumnar junction was encountered at 36 cm from the incisors. The stomach was entered and no bile reflux was found. Additional findings are listed below. Biopsies with cold forceps were obtained of the antrum. The first through third portion of the duodenum was examined and remarkable for active duodenitis. Retroflexion of the scope confirmed Hill grade 4 lower esophageal valve. The squamocolumnar junc tion demonstrated LA grade B erosive esophagitis. The stomach was desufflated. The patient tolerated the procedure well. FINDINGS: Squamocolumnar junction 36 cm from the incisors. Diaphragmatic hiatus at 39 cm. Hiatal hernia, 3 cm Hill grade 4 lower esophageal valve. LA grade B erosive esophagitis. Active duodenitis. Evidence of tertiary contractions highly suspicious for esophageal dysmotility Chronic gastritis with recent bleed RECOMMENDATIONS: Upper endoscopy as needed. Recommend manometry as outpatient Plan - Discharge Summary Discharge Rx Participant: No New Discharge Prescriptions: No Action Lisinopril [Zestril] 5 mg PO BID Cholecalciferol [Vitamin D3 (25 Mcg = 1000 Iu)] 2,000 unit PO DAILY Albuterol Sulfate [Proair Hfa] 2 puff INHALATION RT-Q6H PRN PRN Reason: Shortness Of Breath Nitroglycerin Sl Tabs [Nitrostat] 0.4 mg SUBLINGUAL Q5M PRN PRN Reason: Chest Pain Rosuvastatin Calcium [Crestor] 40 mg PO HS Aspirin 81 mg PO DAILY chew Ezetimibe [Zetia] 10 mg PO HS Omeprazole 20 mg PO BID Apixaban [Eliquis] 5 mg PO BID tab Metoprolol Tartrate [Lopressor] 50 mg PO BID #60 tab Cephalexin [Keflex] 500 mg PO Q8HR ALPRAZolam [Xanax] 0.125 mg PO TID PRN PRN Reason: Anxiety Ipratropium-Albuterol Nebulize [Duoneb 0.5 mg-3 mg/3 ml Soln] 3 ml INHALATION RT-QID PRN PRN Reason: Dyspnea Discharge Medication List Albuterol Sulfate [Proair Hfa] 2 puff INHALATION RT-Q6H PRN 09/12/14 [History] Cholecalciferol [Vitamin D3 (25 Mcg = 1000 Iu)] 2,000 unit PO DAILY 09/12/14 [History] Lisinopril [Zestril] 5 mg PO BID 09/12/14 [History] Nitroglycerin Sl Tabs [Nitrostat] 0.4 mg SUBLINGUAL Q5M PRN 09/12/14 [History] Rosuvastatin Calcium [Crestor] 40 mg PO HS 09/12/14 [History] Aspirin 81 mg PO DAILY chew 04/30/16 [Rx] Ezetimibe [Zetia] 10 mg PO HS 07/02/17 [History] Omeprazole 20 mg PO BID 07/02/17 [History] Apixaban [Eliquis] 5 mg PO BID tab 07/03/17 [Rx] Metoprolol Tartrate [Lopressor] 50 mg PO BID #60 tab 07/03/17 [Rx] ALPRAZolam [Xanax] 0.125 mg PO TID PRN 11/15/18 [History] Cephalexin [Keflex] 500 mg PO Q8HR 11/15/18 [History] Ipratropium-Albuterol Nebulize [Duoneb 0.5 mg-3 mg/3 ml Soln] 3 ml INHALATION RT-QID PRN 11/15/18 [History] Follow up Appointment(s)/Referral(s): Jocelyne Jerez MD [STAFF PHYSICIAN] - 12/12/18 Patient Instructions/Handouts: Gastroesophageal Reflux Disease ([place]) Activity/Diet/Wound Care/Special Instructions: Re-start Eliquis on 11/25/18 Discharge Disposition: HOME SELF-CARE
[2018-11-22 11:47] VITALS: PULSE 83; RESP 16
[2018-11-22 11:58] VITALS: BP 145/86
== END 2018-11-22 12:06 | disposition home or self-care (01) ==
LOC: ORWHC2ENDO 08:56
PROVIDERS: ATTEND Surgery Plastic and Reconstructive Surgery
DX: K21.9 Gastro-esophageal reflux disease without esophagitis (principal); K29.50 Unspecified chronic gastritis without bleeding; K20.8 Other esophagitis; K29.80 Duodenitis without bleeding; K44.9 Diaphragmatic hernia without obstruction or gangrene; I25.10 Atherosclerotic heart disease of native coronary artery without angina pectoris; E78.5 Hyperlipidemia, unspecified; I48.91 Unspecified atrial fibrillation; J44.9 Chronic obstructive pulmonary disease, unspecified; M19.90 Unspecified osteoarthritis, unspecified site; F41.9 Anxiety disorder, unspecified; M54.5 Low back pain; G89.29 Other chronic pain; K58.9 Irritable bowel syndrome, unspecified; Z85.3 Personal history of malignant neoplasm of breast; Z90.11 Acquired absence of right breast and nipple; I25.2 Old myocardial infarction; Z90.49 Acquired absence of other specified parts of digestive tract; Z97.2 Presence of dental prosthetic device (complete) (partial); Z79.2 Long term (current) use of antibiotics; Z79.01 Long term (current) use of anticoagulants; Z79.82 Long term (current) use of aspirin; Z79.899 Other long term (current) drug therapy; Z88.6 Allergy status to analgesic agent; Z88.1 Allergy status to other antibiotic agents; Z88.5 Allergy status to narcotic agent; Z88.0 Allergy status to penicillin; Z88.2 Allergy status to sulfonamides; Z88.8 Allergy status to other drugs, medicaments and biological substances; Z91.018 Allergy to other foods
CPT/HCPCS: 43239; 88305; J2001; J2704

== ENCOUNTER 2019-02-16 13:14 | Day surgery (SDC) | payer MEDICARE, BC ==
--- NOTE | 2019-02-15 19:50 | P.GSHP ---
History of Present Illness H&P Date: 02/16/19 CHIEF COMPLAINT: Paraesophageal hiatal hernia with gastroesophageal reflux disease. HISTORY OF PRESENT ILLNESS: The patient is a 68-year-old female who presents with paraesophageal hiatal hernia. She has completed an esophageal manometry including upper endoscopy workup. Now she presents for surgical intervention. PAST MEDICAL HISTORY: Please see list. PAST SURGICAL HISTORY: Please see list. MEDICATIONS: Please see list. ALLERGIES: Please see list. SOCIAL HISTORY: Please see list. FAMILY HISTORY: Please see list. REVIEW OF ORGAN SYSTEMS: CONSTITUTIONAL: No reports of fevers or chills. GI: Denies any blood in stools or constipation. PHYSICAL EXAM: VITAL SIGNS: Stable GENERAL: Well-developed pleasant and in no acute distress. HEENT: No scleral icterus. Extraocular movements grossly intact. Moist buccal mucosa. NECK: Supple without lymphadenopathy. CHEST: Unlabored respirations. Equal bilateral excursions. CARDIOVASCULAR: Regular rate and rhythm. Distal 2+ pulses. ABDOMEN: Soft, nondistended. No peritoneal signs. MUSCULOSKELETAL: No clubbing, cyanosis, or edema. SKIN: Well-perfused. Good skin turgor. MANOMETRY: Shows no evidence of achalasia or scleroderma. ASSESSMENT: 1. Diaphragmatic paraesophageal hiatal hernia with severe gastroesophageal reflux disease. PLAN: 1. Recommend proceeding with a robotic paraesophageal hiatal hernia with possible mesh. 2. Benefits and risks of surgical intervention was discussed including possibility of open technique. 3. Inpatient hospitalization recommended of 2 nights 4. DVT prophylaxis. 5. Antibiotic prophylaxis. 6. She has also completed a very low caloric high-protein diet to address underlying hepatomegaly. Past Medical History Past Medical History: Atrial Fibrillation, Asthma, Coronary Artery Disease (CAD), Cancer, Chest Pain / Angina, COPD, Fibromyalgia, GERD/Reflux, Hyperlipidemia, Myocardial Infarction ([place]), Osteoarthritis (OA), Pneumonia Additional Past Medical History / Comment(s): HX PVC'S,IBS, CHRONIC LOW BACK PAIN RADIATING INTO RODRICK THIGHS-BULGING CERVICAL DISC,-, RT BREAST CA, back stimulator implant, hiatal hernia, hx ulcer age 18, small thyroid nodules, lymphemdema rt arm(No IV BP rt arm) Last Myocardial Infarction Date:: age 47 History of Any Multi-Drug Resistant Organisms: None Reported Past Surgical History: Breast Surgery, Section, Cholecystectomy, Heart Catheterization Additional Past Surgical History / Comment(s): MASTECTOMY RT BREAST,MANIPULATION LT ARM, left ROATOR CUFF,STRABISMUS EYE SURGERY @ AGE 48, CTR LT WRIST,LT GREAT TOE HAS T SHAPED INPLANT IN, D&C Past Anesthesia/Blood Transfusion Reactions: Family History of Problems w/ Anesthesia Additional Past Anesthesia/Blood Transfusion Reaction / Comment(s): mom-hard time coming out of it Smoking Status: Former smoker - Past Family History Mother Family Medical History: Deep Vein Thrombosis (DVT) Additional Family Medical History / Comment(s): . Medications and Allergies Home Medications Medication Instructions Recorded Confirmed Type Albuterol Sulfate [Proair Hfa] 2 puff INHALATION Q6HR PRN 09/12/14 02/12/19 Hi story Cholecalciferol [Vitamin D3 (25 2,000 unit PO DAILY 09/12/14 02/12/19 History Mcg = 1000 Iu)] Lisinopril [Zestril] 5 mg PO BID 09/12/14 02/12/19 History Nitroglycerin Sl Tabs [Nitrostat] 0.4 mg SUBLINGUAL Q5M PRN 09/12/14 02/12/19 History Rosuvastatin Calcium [Crestor] 40 mg PO HS 09/12/14 02/12/19 History Aspirin 81 mg PO DAILY chew 04/30/16 02/12/19 Rx Ezetimibe [Zetia] 10 mg PO HS 07/02/17 02/12/19 History Apixaban [Eliquis] 5 mg PO BID tab 07/03/17 02/12/19 Rx Metoprolol Tartrate [Lopressor] 50 mg PO BID #60 tab 07/03/17 02/12/19 Rx ALPRAZolam [Xanax] 0.125 mg PO TID PRN 11/15/18 02/12/19 History Ipratropium-Albuterol Nebulize 3 ml INHALATION QID 11/15/18 02/12/19 History [Duoneb 0.5 mg-3 mg/3 ml Soln] Acetaminophen [Tylenol Extra 1,000 mg PO TID PRN 02/12/19 02/12/19 History Strength] Ranitidine HCl 150 mg PO BID 02/12/19 02/12/19 History Allergies Allergy/AdvReac Type Severity Reaction Status Date / Time amoxicillin trihydrate Allergy Itching Verified 02/12/19 14:01 [From Augmentin] calcium Allergy Burning on Verified 02/12/19 14:01 inside itching on outside Cephalosporins Allergy Burning on Verified 02/12/19 14:01 inside -itching on outside loratadine [From Claritin] Allergy Burning on Verified 02/12/19 14:01 inside- itching on outside NSAIDS (Non-Steroidal Allergy Burning on Verified 02/12/19 14:01 Anti-Inflamma inside-itching on outside potassium clavulanate Allergy Itching Verified 02/12/19 14:01 [From Augmentin] prednisone Allergy Burning on Verified 02/12/19 14:01 inside -itching on outside soy Allergy Burning on Verified 02/12/19 14:01 inside - itching on outside sulfamethoxazole Allergy Burning on Verified 02/12/19 14:01 [From Bactrim] inside -itching on outside tramadol HCl [From Ultram] Allergy Burning on Verified 02/12/19 14:01 inside -itching on outside trimethoprim [From Bactrim] Allergy Burning on Verified 02/12/19 14:01 inside -itching on outside steroids Allergy Burning on Uncoded 02/12/19 14:01 inside-itching on outside
[~2019-02-16 13:14] MED LIST changes: +ACETAMINOPHEN TAB 500 MG TAB PO STA; +CHLORHEXIDINE GLUCONATE 15 ML CUP MUCOUS MEM ONE; +CLINDAMYCIN 900 MG in DEXTROSE 5% IN WATER 50 ML IVPB ONE; +GENTAMICIN 300 MG in SODIUM CHLORIDE 0.9% 100 ML IVPB ONE; +HEPARIN SODIUM,PORCINE 5,000 UNIT/ML 1 ML VIAL SQ ONE; -LACTATED RINGERS 1,000 ML IV SCH; -LIDOCAINE 1% 20 ML VIAL (10MG/ML) FOR IV START INTRADERMA PRN; +MIDAZOLAM 2 MG/2 ML VIAL IV PRN; +ONDANSETRON 4 MG/2 ML VIAL IVP ONE; +PANTOPRAZOLE 40 MG/10 ML VIAL IV ONE; +fentaNYL (PF) 50 MCG/ML 2 ML AMP IV PRN
[2019-02-16] MEDS ORDERED: LIDOCAINE 1% 20 ML VIAL (10MG/ML) FOR IV START INTRADERMA ONE (13:46)
[2019-02-16] MEDS: LACTATED RINGERS 1,000 ML IV SCH (13:46)
[2019-02-16] MEDS ORDERED: PHENYLEPHRINE-0.9% NACL SYG 1 MG/10 ML SYRINGE ONE (15:34)
[2019-02-16] MEDS ORDERED: ROPIVACAINE 5 MG/ML 30 ML VIAL ONE (15:34)
[2019-02-16] MEDS ORDERED: MIDAZOLAM 2 MG/2 ML VIAL ONE (15:34)
[2019-02-16] MEDS ORDERED: GLYCOPYRROLATE 0.2 MG/ML 2 ML VIAL ONE (15:34)
[2019-02-16] MEDS ORDERED: ePHEDrine SULFATE/0.9% NACL/PF 50 MG/5 ML SYRINGE IV ONE (15:34)
[2019-02-16] MEDS ORDERED: SUCCINYLCHOLINE CHLORIDE 100 MG/5 ML SYR IV ONE (15:34)
[2019-02-16] MEDS ORDERED: LIDOCAINE 1% INJ 10MG/ML (20 ML MDV) ONE (15:34)
[2019-02-16] MEDS ORDERED: ROCURONIUM BROMIDE 10 MG/ML 10 ML VIAL IV ONE (15:34)
[2019-02-16] MEDS ORDERED: NEOSTIGMINE 1 MG/ML 10 ML VIAL ONE (15:34)
[2019-02-16] MEDS ORDERED: fentaNYL (PF) 50 MCG/ML 2 ML AMP ONE (15:34)
[2019-02-16] MEDS ORDERED: PROPOFOL 10 MG/ML 20 ML VIAL IV ONE (15:34)
--- NOTE | 2019-02-16 15:37 | P.ANPRN ---
Procedure Note - Anesthesia - Nerve Block Performed Bilateral Transversus Abdominis Single Time Out Performed: Yes Date of Procedure: 02/16/19 Procedure Start Time: 15:16 Procedure Stop Time: 15:21 Location of Patient Procedure: PreOp Indication: Acute Post-Operative Pain, Analgesia, Requested by Surgeon Sedation Type: Sedate with meaningful contact maintained Preparation: Sterile Prep Position: Supine Catheter: None Needle Types: Pajunk Needle Gauge: 21 Ultrasound used to visualize needle placement: Yes Ultrasound used to observe medication spread: Yes Injectate: Other (see comment) (0.25% ropivacaine 30cc b/l) Blood Aspirated: No Pain Paresthesia on Injection Noted: No Resistance on Injection: Normal Image Stored and Saved: Yes Events: Uneventful and Well Tolerated
[2019-02-16] MEDS ORDERED: LIDOCAINE 1%-EPI 1:100,000 20 ML VIAL SQ ONE (16:22)
[2019-02-16] MEDS ORDERED: LACTATED RINGERS 1,000 ML IV ONE (17:16)
[2019-02-16] MEDS ORDERED: NALOXONE 0.4 MG/ML 1 ML VIAL IV PRN ×2 (17:32→18:00)
[2019-02-16] MEDS ORDERED: NITROGLYCERIN SL TABS 0.4 MG TAB SUBLINGUAL PRN (17:36)
[2019-02-16] MEDS ORDERED: ALPRAZolam 0.25 MG TAB PO PRN (17:36)
[2019-02-16] MEDS ORDERED: DEXAMETHASONE SOD PHOSPHATE 10 MG/ML 1 ML VIAL IV PRN (17:37)
--- NOTE | 2019-02-16 17:51 | P.OP ---
Date of Procedure: 02/16/19 Description of Procedure: SURGEON: JOCELYNE JEREZ MD PREOPERATIVE DIAGNOSES: 1. Symptomatic paraesophageal diaphragmatic hiatal hernia. 2. Gastroesophageal reflux disease. 3. Ischemic cardiomyopathy 4. Hypertensive heart disease 5. Atrial fibrillation 6. Coronary artery disease 7. History of breast cancer 8. History angina 9. Hyperlipidemia 10. Myocardial infarction history 11. Irritable bowel syndrome 12. Esophageal dysmotility 13. Esophagogastro junction obstruction POSTOPERATIVE DIAGNOSES: 1. Symptomatic paraesophageal diaphragmatic hiatal hernia. 2. Gastroesophageal reflux disease. 3. Ischemic cardiomyopathy 4. Hypertensive heart disease 5. Atrial fibrillation 6. Coronary artery disease 7. History of breast cancer 8. History angina 9. Hyperlipidemia 10. Myocardial infarction history 11. Irritable bowel syndrome 12. Esophageal dysmotility 13. Esophagogastro junction obstruction OPERATION: 1. Robotic-assisted da Shirley Xi laparoscopic repair of incarcerated paraesophageal hiatal hernia, 3 x 3 cm, with [place] Biopatch A 8 x 8 cm. 2. Intraoperative esophagogastroduodenoscopy 3. Esophageal dilation 56-Macedonian bougie for pre-existing esophagogastro junction obstruction ANESTHESIA: General with local anesthetic. ESTIMATED BLOOD LOSS: 5 mL SPECIMENS REMOVED: None COMPLICATIONS: None. Condition: stable Disposition: floor FINDINGS: 1. Midline incarcerated paraesophageal hiatal hernia 3 x 3 cm 2. Intraoperative upper endoscopy confirms complete closure of hiatal hernia from Hill grade 4 to Hill grade 1 INDICATIONS: The patient is a 68-year-old female who presents with regurgitation, gastroesophageal reflux disease poorly controlled despite medications, and a symptomatic diaphragmatic hiatal hernia. Preoperative workup including upper endoscopy demonstrated a Hill grade 4 lower esophageal valve. She completed an esophageal manometry. Given the severity of symptoms, she had elected for surgical intervention. Benefits and risks including bleeding, infection, recurrence, dysphagia, injury to the lung, need for further surgery was described at length. Informed consent was obtained. DESCRIPTION: The patient was brought into the operating room and placed in supine position. Preoperatively she had received heparin subcutaneously for DVT prophylaxis. After general induction, the abdomen was prepped and draped in standard sterile fashion. The patient had previously voided prior to coming to the operating room. Ioban draping was placed along the abdomen. A timeout protocol was confirmed with the surgical team, for which the patient's name, procedure to be performed including DVT prophylaxis with bilateral SCDs, and preoperative antibiotics were also confirmed. A robotic da Shirley Xi system was prepped and primed. At 12 cm from the xiphoid to just below the umbilicus, proposed port sites were marked with indelible marker along the left axillary line, left mid-clavicular line with each ports were marked 10 cm from each other. A 5 mm 0 degrees laparoscopic trocar entry was performed along the left upper quadrant. The abdomen was insufflated to 15 mmHg pressure was tolerated well. Diagnostic laparoscopy demonstrated no injury to bowel, viscera, or mesentery. No injury had occurred to the small bowel or viscera. Next, one 8 mm robotic port was placed along the right upper abdomen. An 8-mm port was were placed along the left lateral abdominal wall. The camera 8-mm port was maintained along the epigastrium via the hernia defect. Another 12 mm port was placed along the left upper abdominal wall after exchanging the 5 mm port. Please note that the ports were placed at least 20 cm away from the target anatomy. Care was taken to check that each robotic arm were safely away from collision with the bed or the patient. At the epigastrium, a medium sized Melissa liver retractor was placed under direct visualization with the Iron Brazing Machine Feeder placed under the right shoulder of the patient. All robotic arms were used. The patient was repositioned in reverse Trendelenburg position at 20-degrees after lowering the bed. The robot was docked above the right side of the patient. Using a grasper for arm 3, a grasper for arm 1, including vessel sealer for arm 2, the robotic system was docked and primed as described. Instruments were interchanged by the veterinary technician assistant. I had sat at the console. The gastrohepatic ligament was cleaved using a vessel sealer. Next, the phrenoesophageal ligament was mobilized and the distal esophagus was mobilized circumferentially. The left and right crura was identified. Circumferentially, the hernia sac was excised and brought into the peritoneal cavity. Dissection into the mediastinum was performed to release the esophagus into the abdominal cavity. The paraesophageal hiatal hernia sac was also incised and divided from the esophagus. The measured defect was consistent with 3 cm axial length and 3 cm in width. After dissection, the distal esophagus of 3 cm was brought into the abdominal cavity. Once the hiatus and crura was dissected, 2-0 VLOC suture was placed to reapproximate the diaphragmatic hiatus posteriorly. To buttress the repair, a [place] Biopatch A was prepared along the back table and cut in half of a auguste-hole fashion as to reinforce the repair as an underlay. The mesh was placed along the crural repair and tagged using horizontal mattress sutures using 2-0 VLOC. I went to the head of the bed to perform intraoperative es ophagogastroduodenoscopy and placement of a 56Fr bougie. The 56 Fr bougie was passed to address her pre-existing esophagogastro junction obstruction and esophageal dysmotility. The bougie had been left in place for 2 minutes then removed. An Olympus gastroscope was passed through posterior oropharynx. Retroflexion of the scope confirmed a Hill grade 1 lower esophageal valve. The stomach had been desufflated. No evidence of leaks were found of the esophagus or stomach. The GI tract with desufflated This concluded the endoscopic portion of the case. The robot was undocked from the patient. I re-scrubbed into the case. All instruments and pneumoperitoneum were evacuated from the abdominal cavity. Incisions were reapproximated using 4-0 Monocryl in an interrupted subcuticular fashion. Liquid glue was applied to the skin. Local anesthetic was infiltrated in all wounds for postop analgesia. Multiple intra-abdominal films were obtained. At the end of the procedure, needle, sponge, and instrument count was verified correct by the ophthalmology surgical technician. The patient had tolerated the procedure well and was taken to the postanesthesia unit in stable condition. Intraoperative films were reviewed with the patient's family who was pleased with the level of care. Plan - Discharge Summary Discharge Rx Participant: No New Discharge Prescriptions: New Bisacodyl [Dulcolax] 5 mg PO DAILY PRN #10 tablet. PRN Reason: Constipation Simethicone 40 mg/0.6 ml Drops [Mylicon Drops] 40 mg PO PCHS PRN #30 ml PRN Reason: Gas Ondansetron Odt [Zofran Odt] 4 mg PO Q8HR PRN #9 tab PRN Reason: Nausea Continue Lisinopril [Zestril] 5 mg PO BID Cholecalciferol [Vitamin D3 (25 Mcg = 1000 Iu)] 2,000 unit PO DAILY Albuterol Sulfate [Proair Hfa] 2 puff INHALATION Q6HR PRN PRN Reason: Shortness Of Breath Nitroglycerin Sl Tabs [Nitrostat] 0.4 mg SUBLINGUAL Q5M PRN PRN Reason: Chest Pain Rosuvastatin Calcium [Crestor] 40 mg PO HS Aspirin 81 mg PO DAILY chew Ezetimibe [Zetia] 10 mg PO HS Metoprolol Tartrate [Lopressor] 50 mg PO BID #60 tab ALPRAZolam [Xanax] 0.125 mg PO TID PRN PRN Reason: Anxiety Ipratropium-Albuterol Nebulize [Duoneb 0.5 mg-3 mg/3 ml Soln] 3 ml INHALATION QID Acetaminophen [Tylenol Extra Strength] 1,000 mg PO TID PRN PRN Reason: Pain Apixaban [Eliquis] 5 mg PO BID #0 tab Discontinued Ranitidine HCl 150 mg PO BID Discharge Medication List Albuterol Sulfate [Proair Hfa] 2 puff INHALATION Q6HR PRN 09/12/14 [History] Cholecalciferol [Vitamin D3 (25 Mcg = 1000 Iu)] 2,000 unit PO DAILY 09/12/14 [History] Lisinopril [Zestril] 5 mg PO BID 09/12/14 [History] Nitroglycerin Sl Tabs [Nitrostat] 0.4 mg SUBLINGUAL Q5M PRN 09/12/14 [History] Rosuvastatin Calcium [Crestor] 40 mg PO HS 09/12/14 [History] Aspirin 81 mg PO DAILY chew 04/30/16 [Rx] Ezetimibe [Zetia] 10 mg PO HS 07/02/17 [History] Metoprolol Tartrate [Lopressor] 50 mg PO BID #60 tab 07/03/17 [Rx] ALPRAZolam [Xanax] 0.125 mg PO TID PRN 11/15/18 [History] Ipratropium-Albuterol Nebulize [Duoneb 0.5 mg-3 mg/3 ml Soln] 3 ml INHALATION QID 11/15/18 [History] Acetaminophen [Tylenol Extra Strength] 1,000 mg PO TID PRN 02/12/19 [History] Apixaban [Eliquis] 5 mg PO BID #0 tab 02/16/19 [Rx] Bisacodyl [Dulcolax] 5 mg PO DAILY PRN #10 tablet. 02/16/19 [Rx] Ondansetron Odt [Zofran Odt] 4 mg PO Q8HR PRN #9 tab 02/16/19 [Rx] Simethicone 40 mg/0.6 ml Drops [Mylicon Drops] 40 mg PO PCHS PRN #30 ml 02/16/19 [Rx] Follow up Appointment(s)/Referral(s): Jocelyne Jerez MD [STAFF PHYSICIAN] - 02/20/19 Patient Instructions/Handouts: Hiatal Hernia (DC) Activity/Diet/Wound Care/Special Instructions: Liquid diet only until March 02. No carbonated beverages. No straws. No lifting over 4 pounds in 4 weeks, March 19. May shower. No bath tub soaks for 14 days until March 02. May take [id number] Tylenol or Aleve for pain. Do not remove scopolamine patch for 3 days, if present Discharge Disposition: HOME SELF-CARE
[2019-02-16] MEDS ORDERED: fentaNYL (PF) 50 MCG/ML 2 ML AMP IVP ONE (18:18)
[2019-02-16] MEDS ORDERED: ONDANSETRON 4 MG/2 ML VIAL IVP ONE (18:19)
[2019-02-16] MEDS ORDERED: fentaNYL PCA 500 MCG/50 ML BAG IV PRN (18:30)
[2019-02-16] MEDS: SIMETHICONE 40 MG/0.6 ML DROPS 2,000 MG/30 ML BOTTLE PO SCH ×2 (18:41→23:25)
[2019-02-16] MEDS: HYOSCYAMINE ORAL DROPS 1.875 MG/15 ML BOTTLE PO SCH ×2 (18:42→23:26)
[2019-02-16] MEDS: ACETAMINOPHEN IV (For NPO) 1,000 MG in EMPTY BAG 1 BAG IVPB SCH ×2 (18:45→23:24)
[2019-02-16] MEDS: DEXAMETHASONE SOD PHOSPHATE 4 MG/ML 1 ML VIAL IV SCH ×2 (18:47→18:51)
[2019-02-16] MEDS: 0.9% NACL WITH KCL 20 MEQ/L 1,000 ML IV SCH (19:52)
[2019-02-16] MEDS: ALBUTEROL NEBULIZED 2.5 MG/3 ML INHALATION SCH (20:41)
[2019-02-16] MEDS ORDERED: EZETIMIBE 10 MG TAB PO SCH (21:00)
[2019-02-16] MEDS: ONDANSETRON 4 MG/2 ML VIAL IVP SCH (23:17)
[2019-02-16] MEDS: LISINOPRIL 5 MG TAB PO SCH (23:19)
[2019-02-16] MEDS: METOPROLOL TARTRATE 50 MG TAB PO SCH (23:19)
[2019-02-16] MEDS: CLINDAMYCIN 900 MG in DEXTROSE 5% IN WATER 50 ML IVPB SCH ×2 (23:24)
[2019-02-17] MEDS: DEXAMETHASONE SOD PHOSPHATE 4 MG/ML 1 ML VIAL IV SCH ×2 (01:09→05:23)
[2019-02-17] MEDS: ONDANSETRON 4 MG/2 ML VIAL IVP SCH ×2 (01:09→05:23)
[2019-02-17 02:11] VITALS: TEMP 97.5
[2019-02-17] MEDS: 0.9% NACL WITH KCL 20 MEQ/L 1,000 ML IV SCH (04:12)
[2019-02-17] MEDS: ACETAMINOPHEN IV (For NPO) 1,000 MG in EMPTY BAG 1 BAG IVPB SCH (05:21)
[2019-02-17] MEDS: SIMETHICONE 40 MG/0.6 ML DROPS 2,000 MG/30 ML BOTTLE PO SCH (05:22)
[2019-02-17] MEDS: HYOSCYAMINE ORAL DROPS 1.875 MG/15 ML BOTTLE PO SCH (05:23)
[2019-02-17] MEDS: LACTATED RINGERS 1,000 ML IV SCH (06:01)
[2019-02-17 07:54] LABS: Basophils % (A) 0 %; Eosinophils # (A) 0.1 k/uL (0-0.7); Eosinophils % (A) 1 %; HCT 35.5 % (34.0-46.0); HGB 11.4 gm/dL (11.4-16.0); Hypochromasia Slight; Lymphocytes % (A) 14 %; MCH 28.3 pg (25.0-35.0); MCHC 32.2 g/dL (31.0-37.0); MCV 87.7 fL (80.0-100.0); Mean Platelet Volume 6.3; Monocytes # (A) 0.5 k/uL (0-1.0); Monocytes % (A) 7 %; Neutrophils # (A) 5.5 k/uL (1.3-7.7); Neutrophils % (A) 76 %; Platelet Count 258 k/uL (150-450); RBC 4.05 m/uL (3.80-5.40); RDW 14.2 % (11.5-15.5); WBC 7.3 k/uL (3.8-10.6)
[2019-02-17] MEDS ORDERED: 0.9% NACL WITH KCL 20 MEQ/L 1,000 ML IV SCH (08:00)
[2019-02-17 08:02] VITALS: BP 120/78; PULSE 83
[2019-02-17 08:10] LABS: Calcium 8.3 mg/dL (8.4-10.2); Magnesium 2.1 mg/dL (1.6-2.3); Phosphorus 4.3 mg/dL (2.5-4.5); Potassium 4.6 mmol/L (3.5-5.1)
--- NOTE | 2019-02-17 08:33 | FL ---
EXAMINATION TYPE: FL esophagus cervic/pharynx DATE OF EXAM ORDERED: 02/17/2019 8:27 AM HISTORY: Status post hiatal hernia repair. COMPARISON: None. FINDINGS: The patient drank contrast with ease. There is prompt egress of contrast from esophagus to stomach. The ligament of Treitz is in the normal location. There is no evidence of extravasation or free air. IMPRESSION: STATUS POST HIATAL HERNIA REPAIR.
[2019-02-17] MEDS: METOPROLOL TARTRATE 50 MG TAB PO SCH (08:53)
[2019-02-17] MEDS: LISINOPRIL 5 MG TAB PO SCH (08:53)
[2019-02-17] MEDS: CLINDAMYCIN 900 MG in DEXTROSE 5% IN WATER 50 ML IVPB SCH ×2 (08:55)
[2019-02-17] MEDS ORDERED: PANTOPRAZOLE 40 MG/10 ML VIAL IV SCH (09:00)
[2019-02-17] MEDS ORDERED: ASPIRIN 81 MG PO SCH (09:00)
--- NOTE | 2019-02-17 09:10 | P.PN ---
Progress Note - Text Progress Note Date: 02/17/19 The patient feels well. She has minimal postoperative pain. She is just completed her esophagram. On exam her vital signs are stable. Her abdomen soft. Incision sites are clean dry intact. Status post repair of hiatal hernia. Patient will be discharged home later today.
[2019-02-17] MEDS: ALBUTEROL NEBULIZED 2.5 MG/3 ML INHALATION SCH (09:20)
[2019-02-17 09:55] VITALS: RESP 15
[2019-02-17 11:03] VITALS: BMI 30.9
--- NOTE | 2019-02-17 13:59 | P.CONS ---
History of Present Illness - Reason for Consult Consult date: 02/17/19 - History of Present Illness Came to the floor to see the consult. Patient was discharged by the nurse without informing me. Consultation was not done. Past Medical History Past Medical History: Atrial Fibrillation, Asthma, Coronary Artery Disease (CAD), Cancer, Chest Pain / Angina, COPD, Fibromyalgia, GERD/Reflux, Hyperlipidemia, Myocardial Infarction ([place]), Osteoarthritis (OA), Pneumonia Additional Past Medical History / Comment(s): HX PVC'S,IBS, CHRONIC LOW BACK PAIN RADIATING INTO RODRICK THIGHS-BULGING CERVICAL DISC,-, RT BREAST CA, back stimulator implant, hiatal hernia, hx ulcer age 18, small thyroid nodules, lymphemdema rt arm(No IV BP rt arm) Last Myocardial Infarction Date:: age 47 History of Any Multi-Drug Resistant Organisms: None Reported Past Surgical History: Breast Surgery, Section, Cholecystectomy, Heart Catheterization Additional Past Surgical History / Comment(s): MASTECTOMY RT BREAST,MANIPULATION LT ARM, left ROATOR CUFF,STRABISMUS EYE SURGERY @ AGE 48, CTR LT WRIST,LT GREAT TOE HAS T SHAPED INPLANT IN, D&C Past Anesthesia/Blood Transfusion Reactions: Family History of Problems w/ Anesthesia Additional Past Anesthesia/Blood Transfusion Reaction / Comm: mom-hard time coming out of it Past Psychological History: No Psychological Hx Reported Smoking Status: Former smoker Past Alcohol Use History: None Reported Additional Past Alcohol Use History / Comment(s): smoked on and off since age 18 quit 2015 Past Drug Use History: None Reported - Past Family History Mother Family Medical History: Deep Vein Thrombosis (DVT) Additional Family Medical History / Comment(s): . Medications and Allergies Home Medications Medication Instructions Recorded Confirmed Type Albuterol Sulfate [Proair Hfa] 2 puff INHALATION Q6HR PRN 09/12/14 02/12/19 History Cholecalciferol [Vitamin D3 (25 2,000 unit PO DAILY 09/12/14 02/12/19 History Mcg = 1000 Iu)] Lisinopril [Zestril] 5 mg PO BID 09/12/14 02/12/19 History Nitroglycerin Sl Tabs [Nitrostat] 0.4 mg SUBLINGUAL Q5M PRN 09/12/14 02/12/19 History Rosuvastatin Calcium [Crestor] 40 mg PO HS 09/12/14 02/12/19 History Aspirin 81 mg PO DAILY chew 04/30/16 02/12/19 Rx Ezetimibe [Zetia] 10 mg PO HS 07/02/17 02/12/19 History Metoprolol Tartrate [Lopressor] 50 mg PO BID #60 tab 07/03/17 02/12/19 Rx ALPRAZolam [Xanax] 0.125 mg PO TID PRN 11/15/18 02/12/19 History Ipratropium-Albuterol Nebulize 3 ml INHALATION QID 11/15/18 02/12/19 History [Duoneb 0.5 mg-3 mg/3 ml Soln] Acetaminophen [Tylenol Extra 1,000 mg PO TID PRN 02/12/19 02/12/19 History Strength] Apixaban [Eliquis] 5 mg PO BID #0 tab 02/16/19 02/12/19 Rx Bisacodyl [Dulcolax] 5 mg PO DAILY PRN #10 tablet. 02/16/19 Rx Ondansetron Odt [Zofran Odt] 4 mg PO Q8HR PRN #9 tab 02/16/19 Rx Simethicone 40 mg/0.6 ml Drops 40 mg PO PCHS PRN #30 ml 02/16/19 Rx [Mylicon Drops] Allergies Allergy/AdvReac Type Severity Reaction Status Date / Time amoxicillin trihydrate Allergy Itching Verified 02/12/19 14:01 [From Augmentin] calcium Allergy Burning on Verified 02/12/19 14:01 inside itching on outside Cephalosporins Allergy Burning on Verified 02/12/19 14:01 inside -itching on outside loratadine [From Claritin] Allergy Burning on Verified 02/12/19 14:01 inside- itching on outside NSAIDS (Non-Steroidal Allergy Burning on Verified 02/12/19 14:01 Anti-Inflamma inside-itching on outside potassium clavulanate Allergy Itching Verified 02/12/19 14:01 [From Augmentin] prednisone Allergy Burning on Verified 02/12/19 14:01 inside -itching on outside soy Allergy Burning on Verified 02/12/19 14:01 inside - itching on outside sulfamethoxazole Allergy Burning on Verified 02/12/19 14:01 [From Bactrim] inside -itching on outside tramadol HCl [From Ultram] Allergy Burning on Verified 02/12/19 14:01 inside -itching on outside trimethoprim [From Bactrim] Allergy Burning on Verified 02/12/19 14:01 inside -itching on outside steroids Allergy Burning on Uncoded 02/12/19 14:01 inside-itching on outside Physical Exam Vitals: Vital Signs Temp Pulse Pulse Pulse Resp BP Pulse Ox 02/17/19 07:00 97.5 F L 83 15 120/78 93 L 02/17/19 03:49 18 02/17/19 01:20 97.5 F L 78 18 95/61 96 02/17/19 00:00 18 02/16/19 20:44 82 02/16/19 20:36 16 02/16/19 18:20 77 18 135/73 96 02/16/19 18:05 86 18 167/73 95 02/16/19 17:50 91 16 164/72 100 02/16/19 17:35 111 H 18 184/93 100 02/16/19 15:25 72 16 132/67 99 02/16/19 13:43 97.9 F 77 20 197/75 94 L Intake and Output 02/16/19 02/17/19 02/17/19 22:59 06:59 14:59 Intake Total 463.5 Output Total 5 Balance 458.5 Intake: IV 463.5 Output: Estimated Blood Loss 5 Other: # Voids 3 Results CBC & Chem 7: 02/17/19 06:42 02/17/19 06:42 Labs: Abnormal Lab Results - Last 24 Hours (Table) 02/17/19 Range/Units 06:42 Calcium 8.3 L (8.4-10.2) mg/dL
[2019-02-18] MEDS ORDERED: BISACODYL 5 MG TABLET.DR PO PRN (08:00)
== END 2019-02-17 10:45 | disposition home or self-care (01) ==
LOC: OR 13:14 → 4SSUR 17:41 → OR 02-17 10:45
PROVIDERS: ATTEND Surgery Plastic and Reconstructive Surgery
DX: K44.9 Diaphragmatic hernia without obstruction or gangrene (principal); K21.9 Gastro-esophageal reflux disease without esophagitis; I25.5 Ischemic cardiomyopathy; I25.10 Atherosclerotic heart disease of native coronary artery without angina pectoris; I11.9 Hypertensive heart disease without heart failure; I48.91 Unspecified atrial fibrillation; E78.5 Hyperlipidemia, unspecified; K58.9 Irritable bowel syndrome, unspecified; K22.4 Dyskinesia of esophagus; I25.2 Old myocardial infarction; Z85.3 Personal history of malignant neoplasm of breast; J45.909 Unspecified asthma, uncomplicated; J44.9 Chronic obstructive pulmonary disease, unspecified; M79.7 Fibromyalgia; M19.90 Unspecified osteoarthritis, unspecified site; G89.29 Other chronic pain; M54.16 Radiculopathy, lumbar region; Z90.49 Acquired absence of other specified parts of digestive tract; Z87.891 Personal history of nicotine dependence; Z84.89 Family history of other specified conditions; Z79.01 Long term (current) use of anticoagulants; Z79.82 Long term (current) use of aspirin; Z79.899 Other long term (current) drug therapy; Z88.6 Allergy status to analgesic agent; Z88.1 Allergy status to other antibiotic agents; Z88.5 Allergy status to narcotic agent; Z88.0 Allergy status to penicillin; Z88.2 Allergy status to sulfonamides; Z88.8 Allergy status to other drugs, medicaments and biological substances
CPT/HCPCS: 94640; 64488; 80051; 82310; 82565; 83735; 84100; 84520; 85025; 74210; 43282; 43499; C1781; J2250; J1644; J2710; J2405; J2001; J3010 ×2; J1580; J2795; J0131 ×2; J2370; J0330; J2704; C9113; Q9967

== ENCOUNTER → 2019-03-28 | Outpatient (CLI) | payer MEDICARE, BC ==
--- NOTE | 2019-03-28 11:00 | FL ---
EXAMINATION TYPE: FL barium swallow DATE OF EXAM: 03/28/2019 CLINICAL HISTORY: Hiatal hernia repair with persistent dysphagia and burning sensation of the esophag us. TECHNIQUE: A double contrast esophagram is performed utilizing air and barium. A total of 1 minute and 25 seconds of fluoroscopic time was utilized during procedure. 54 fluoroscopic images were saved during the examination. COMPARISON: None FINDINGS: The esophagus shows normal motility and emptying into the stomach. No evidence of recurren t hiatal hernia. Persistent mild narrowing at the gastroesophageal junction. This results in mild del ay of contrast flow along the distal esophagus into the stomach. Tertiary contractions are also seen throughout the examination with esophageal spasm. No significant gastroesophageal reflux was seen dur ing real time performance of this study. IMPRESSION: 1. Mild stricture at the gastroesophageal junction resulting in delayed flow of contrast from the dis alexei esophagus into the stomach. 2. Intermittent esophageal spasms in tertiary contractions. 3. No recurrent hiatal hernia nor gastroesophageal reflux seen.
== END | disposition home or self-care (01) ==
LOC: RADUSWWP 09:43
PROVIDERS: ATTEND Surgery Plastic and Reconstructive Surgery
DX: K22.4 Dyskinesia of esophagus (principal); K22.2 Esophageal obstruction
CPT/HCPCS: 74220

== ENCOUNTER 2019-06-07 08:41 | Day surgery (SDC) | payer MEDICARE, BC ==
[2019-06-05 14:54] VITALS: BMI 30.7
--- NOTE | 2019-06-06 17:52 | P.GSHP ---
History of Present Illness H&P Date: 06/07/19 CHIEF COMPLAINT: GERD HISTORY OF PRESENT ILLNESS: The patient is a 69-year-old female who presents reports gastroesophageal reflux disease. Upper endoscopy was offered for further evaluation and management. PAST MEDICAL HISTORY: Please see list. PAST SURGICAL HISTORY: Please see list. MEDICATIONS: Please see list. ALLERGIES: Please see list. SOCIAL HISTORY: No illicit drug use FAMILY HISTORY: No reports of Crohn disease or ulcerative colitis. REVIEW OF ORGAN SYSTEMS: CONSTITUTIONAL: No reports of fevers or chills. GI: Denies any blood in stools or constipation. PHYSICAL EXAM: VITAL SIGNS: Stable GENERAL: Well-developed and pleasant in no acute distress. HEENT: No scleral icterus. Extraocular movements grossly intact. Moist buccal mucosa. NECK: Supple without lymphadenopathy. CHEST: Unlabored respirations. Equal bilateral excursions. CARDIOVASCULAR: Regular rate and rhythm. Distal 2+ pulses. ABDOMEN: Soft, nondistended. MUSCULOSKELETAL: No clubbing, cyanosis, or edema. ASSESSMENT: 1. Gastroesophageal reflux disease PLAN: 1. Recommend proceeding with an upper endoscopy Past Medical History Past Medical History: Atrial Fibrillation, Asthma, Coronary Artery Disease (CAD), Cancer, Chest Pain / Angina, COPD, Fibromyalgia, GERD/Reflux, Hyperlipidemia, Myocardial Infarction (LA), Osteoarthritis (OA), Pneumonia Additional Past Medical History / Comment(s): currently having difficulty swallowing, HX PVC'S, IBS, CHRONIC LOW BACK PAIN RADIATING INTO RODRICK THIGHS- BULGING CERVICAL DISC, RT BREAST CA, back stimulator implant, hiatal hernia, hx ulcer age 18, small thyroid nodules, lymphemdema rt arm (No IV BP rt arm) Last Myocardial Infarction Date:: 1997 History of Any Multi-Drug Resistant Organisms: None Reported Past Surgical History: Breast Surgery, Section, Cholecystectomy, Heart Catheterization, Hernia Repair Additional Past Surgical History / Comment(s): garrick fundlaplasty, MASTECTOMY RT BREAST,MANIPULATION LT ARM, left ROATOR CUFF,STRABISMUS EYE SURGERY @ AGE 48, CTR LT WRIST,LT GREAT TOE HAS T SHAPED INPLANT IN, D&C Past Anesthesia/Blood Transfusion Reactions: Previous Problems w/ Anesthesia Additional Past Anesthesia/Blood Transfusion Reaction / Comment(s): patient and mom-hard time coming out of it Past Psychological History: No Psychological Hx Reported Smoking Status: Former smoker Past Alcohol Use History: None Reported Additional Past Alcohol Use History / Comment(s): smoked on and off since age 18 quit 2015 Past Drug Use History: None Reported - Past Family History Mother Family Medical History: Deep Vein Thrombosis (DVT) Additional Family Medical History / Comment(s): . Medications and Allergies Home Medications Medication Instructions Recorded Confirmed Type Albuterol Sulfate [Proair Hfa] 2 puff INHALATION Q6HR PRN 09/12/14 06/05/19 History Cholecalciferol [Vitamin D3 (25 2,000 unit PO DAILY 09/12/14 06/05/19 History Mcg = 1000 Iu)] Lisinopril [Zestril] 5 mg PO BID 09/12/14 06/05/19 History Nitroglycerin Sl Tabs [Nitrostat] 0.4 mg SUBLINGUAL Q5M PRN 09/12/14 06/05/19 History Rosuvastatin Calcium [Crestor] 40 mg PO HS 09/12/14 06/05/19 History Aspirin 81 mg PO DAILY chew 04/30/16 06/05/19 Rx Ezetimibe [Zetia] 10 mg PO HS 07/02/17 06/05/19 History Metoprolol Tartrate [Lopressor] 50 mg PO BID #60 tab 07/03/17 06/05/19 Rx ALPRAZolam [Xanax] 0.125 mg PO TID PRN 11/15/18 06/05/19 History Ipratropium-Albuterol Nebulize 3 ml INHALATION QID PRN 11/15/18 06/05/19 History [Duoneb 0.5 mg-3 mg/3 ml Soln] Acetaminophen [Tylenol Extra 1,000 mg PO TID PRN 02/12/19 06/05/19 History Strength] Apixaban [Eliquis] 5 mg PO BID #0 tab 02/16/19 06/05/19 Rx Allergies Allergy/AdvReac Type Severity Reaction Status Date / Time adhesive tape Allergy Unknown Verified 06/05/19 14:48 amoxicillin trihydrate Allergy Itching Verified 06/05/19 14:47 [From Augmentin] calcium Allergy Burning on Verified 06/05/19 14:47 inside itching on outside Cephalosporins Allergy Burning on Verified 06/05/19 14:47 inside -itching on outside clarithromycin [From Biaxin] Allergy burning on Verified 06/05/19 14:48 inside, itching on outside loratadine [From Claritin] Allergy Burning on Verified 06/05/19 14:47 inside- itching on outside NSAIDS (Non-Steroidal Allergy Burning on Verified 06/05/19 14:47 Anti-Inflamma inside-itching on outside potassium clavulanate Allergy Itching Verified 06/05/19 14:47 [From Augmentin] prednisone Allergy Burning on Verified 06/05/19 14:47 inside -itching on outside soy Allergy Burning on Verified 06/05/19 14:47 inside - itching on outside sulfamethoxazole Allergy Burning on Verified 06/05/19 14:47 [From Bactrim] inside -itching on outside tramadol HCl [From Ultram] Allergy Burning on Verified 06/05/19 14:47 inside -itching on outside trimethoprim [From Bactrim] Allergy Burning on Verified 06/05/19 14:47 inside -itching on outside steroids Allergy Burning on Uncoded 06/05/19 14:47 inside-itching on outside
[~2019-06-07 08:41] MED LIST changes: -ACETAMINOPHEN TAB 500 MG TAB PO STA; -CHLORHEXIDINE GLUCONATE 15 ML CUP MUCOUS MEM ONE; -CLINDAMYCIN 900 MG in DEXTROSE 5% IN WATER 50 ML IVPB ONE; -GENTAMICIN 300 MG in SODIUM CHLORIDE 0.9% 100 ML IVPB ONE; -HEPARIN SODIUM,PORCINE 5,000 UNIT/ML 1 ML VIAL SQ ONE; +LACTATED RINGERS 1,000 ML IV SCH; +LIDOCAINE 1% (10MG/ML) FOR IV START INTRADERMA PRN; -MIDAZOLAM 2 MG/2 ML VIAL IV PRN; -ONDANSETRON 4 MG/2 ML VIAL IVP ONE; -PANTOPRAZOLE 40 MG/10 ML VIAL IV ONE; -fentaNYL (PF) 50 MCG/ML 2 ML AMP IV PRN
[2019-06-07 09:17] VITALS: TEMP 97
[2019-06-07] MEDS ORDERED: LIDOCAINE 1% INJ 10MG/ML (20 ML MDV) ONE (09:49)
[2019-06-07] MEDS ORDERED: PROPOFOL 10 MG/ML 20 ML VIAL IV ONE (09:49)
--- NOTE | 2019-06-07 10:16 | P.PCN ---
Date of Procedure: 06/07/19 Description of Procedure: PREOPERATIVE DIAGNOSIS: Dysphagia. Gastroesophageal reflux disease POSTOPERATIVE DIAGNOSIS: Dysphagia. Gastroesophageal reflux disease Esophageal stricture Gastritis with recent bleeding Duodenitis with early duodenal ulcers OPERATION: Esophagogastroduodenoscopy with rigid dilator over the guidewire 54 Fr. Esophagogastroduodenoscopy with cold forceps biopsies along antrum, duodenum SURGEON: Jocelyne Jerez MD ANESTHESIA: MAC. INDICATIONS: The patient is a 69-year-old female who presents with a history of dysphagia. Benefits and risks of the procedure were described. Informed consent was obtained. DESCRIPTION: The patient was brought into the endoscopy suite and laid in the left lateral decubitus position. After a timeout was confirmed, the procedure was initiated. An Olympus gastroscope was passed and the stomach was entered. Mild gastritis was identified. The scope was advanced to the duodenum which was unremarkable. Retroflexion the scope confirmed a Hill grade 1 lower esophageal valve. Next using an [place] rigid dilator, a guidewire was placed through the gastroscope. Next the scope was withdrawn. A 54-Mexican rigid [place] dilator was passed carefully along the posterior oropharynx to 50 cm and left in place for 2-3 minutes stretch. The dilator was withdrawn including the guidewire. The scope was reentered along the posterior oropharynx with no findings of full- thickness tear of the upper esophageal sphincter. Next, inflammation of the antrum for gastritis or recent bleeding including of the duodenum with early duodenal ulcerwas identified with cold forceps biopsies obtained. No full-thickness injury was encountered. The GI tract was desufflated. The patient tolerated the procedure well. FINDINGS: Squamocolumnar junction at 34 cm. Distal esophageal stricture without ulceration [place] rigid dilator 54-Mexican completed. Hiatus at 36 cm Recurrent hiatal hernia, 2 cm Diffuse gastritis with recent bleeding Duodenitis with early duodenal ulcers Hill grade 1 lower esophageal valve. LA grade B esophagitis. RECOMMENDATIONS: Start omeprazole 40 mg daily for duodenitis including gastritis Plan - Discharge Summary Discharge Rx Participant: Yes New Discharge Prescriptions: No Action Lisinopril [Zestril] 5 mg PO BID Cholecalciferol [Vitamin D3 (25 Mcg = 1000 Iu)] 2,000 unit PO DAILY Albuterol Sulfate [Proair Hfa] 2 puff INHALATION Q6HR PRN PRN Reason: Shortness Of Breath Nitroglycerin Sl Tabs [Nitrostat] 0.4 mg SUBLINGUAL Q5M PRN PRN Reason: Chest Pain Rosuvastatin Calcium [Crestor] 40 mg PO HS Aspirin 81 mg PO DAILY chew Ezetimibe [Zetia] 10 mg PO HS Metoprolol Tartrate [Lopressor] 50 mg PO BID #60 tab ALPRAZolam [Xanax] 0.125 mg PO TID PRN PRN Reason: Anxiety Ipratropium-Albuterol Nebulize [Duoneb 0.5 mg-3 mg/3 ml Soln] 3 ml INHALATION QID PRN PRN Reason: Shortness Of Breath Acetaminophen [Tylenol Extra Strength] 1,000 mg PO TID PRN PRN Reason: Pain Apixaban [Eliquis] 5 mg PO BID #0 tab Discharge Medication List Albuterol Sulfate [Proair Hfa] 2 puff INHALATION Q6HR PRN 09/12/14 [History] Cholecalciferol [Vitamin D3 (25 Mcg = 1000 Iu)] 2,000 unit PO DAILY 09/12/14 [History] Lisinopril [Zestril] 5 mg PO BID 09/12/14 [History] Nitroglycerin Sl Tabs [Nitrostat] 0.4 mg SUBLINGUAL Q5M PRN 09/12/14 [History] Rosuvastatin Calcium [Crestor] 40 mg PO HS 09/12/14 [History] Aspirin 81 mg PO DAILY chew 04/30/16 [Rx] Ezetimibe [Zetia] 10 mg PO HS 07/02/17 [History] Metoprolol Tartrate [Lopressor] 50 mg PO BID #60 tab 07/03/17 [Rx] ALPRAZolam [Xanax] 0.125 mg PO TID PRN 11/15/18 [History] Ipratropium-Albuterol Nebulize [Duoneb 0.5 mg-3 mg/3 ml Soln] 3 ml INHALATION QID PRN 11/15/18 [History] Acetaminophen [Tylenol Extra Strength] 1,000 mg PO TID PRN 02/12/19 [History] Apixaban [Eliquis] 5 mg PO BID #0 tab 02/16/19 [Rx] Follow up Appointment(s)/Referral(s): Jocelyne Jerez MD [STAFF PHYSICIAN] - 06/12/19 Patient Instructions/Handouts: Esophageal Dilation (DC), Duodenitis (DC), Gastritis (DC) Activity/Diet/Wound Care/Special Instructions: START ELIQUIS 06/08/19, TOMORROW. Liquid diet today. Discharge Disposition: HOME SELF-CARE
[2019-06-07 10:20] VITALS: PULSE 69
[2019-06-07 10:30] VITALS: BP 140/69; RESP 16
== END 2019-06-07 11:11 | disposition home or self-care (01) ==
LOC: ORWHC2ENDO 08:41
PROVIDERS: ATTEND Surgery Plastic and Reconstructive Surgery
DX: K22.2 Esophageal obstruction (principal); K29.80 Duodenitis without bleeding; K26.9 Duodenal ulcer, unspecified as acute or chronic, without hemorrhage or perforation; K44.9 Diaphragmatic hernia without obstruction or gangrene; K29.51 Unspecified chronic gastritis with bleeding; K21.0 Gastro-esophageal reflux disease with esophagitis; I48.91 Unspecified atrial fibrillation; I25.10 Atherosclerotic heart disease of native coronary artery without angina pectoris; J44.9 Chronic obstructive pulmonary disease, unspecified; M79.7 Fibromyalgia; E78.5 Hyperlipidemia, unspecified; I25.2 Old myocardial infarction; M19.90 Unspecified osteoarthritis, unspecified site; G89.29 Other chronic pain; F41.9 Anxiety disorder, unspecified; I89.0 Lymphedema, not elsewhere classified; Z87.19 Personal history of other diseases of the digestive system; Z98.891 History of uterine scar from previous surgery; Z90.49 Acquired absence of other specified parts of digestive tract; Z85.3 Personal history of malignant neoplasm of breast; Z98.890 Other specified postprocedural states; Z87.891 Personal history of nicotine dependence; Z79.891 Long term (current) use of opiate analgesic; Z79.82 Long term (current) use of aspirin; Z87.01 Personal history of pneumonia (recurrent); Z79.899 Other long term (current) drug therapy; Z79.01 Long term (current) use of anticoagulants; Z88.0 Allergy status to penicillin; Z91.048 Other nonmedicinal substance allergy status; Z88.1 Allergy status to other antibiotic agents; Z88.8 Allergy status to other drugs, medicaments and biological substances; Z88.6 Allergy status to analgesic agent; Z91.018 Allergy to other foods; Z88.5 Allergy status to narcotic agent
CPT/HCPCS: 43248; 43239; 88305; J2001; J2704; 43249

== ENCOUNTER → 2019-10-10 | Outpatient (CLI) | payer MEDICARE, BC ==
--- NOTE | 2019-10-11 08:03 | MM ---
Reason for exam: additional evaluation requested from prior study. Last mammogram was performed 1 year and 2 months ago. History: Patient is postmenopausal and has history of breast cancer at age 55. Family history of breast cancer in aunt at age 60. Mastectomy of the right breast, February 15, 2006. Chemotherapy, 2005. Benign excisional biopsy of the right breast, 2002. Benign excisional biopsy of the right breast, July 27, 2000. Physical Findings: Patient refused breast exam. MG 3D Diag Mammo W/Cad LT CC and MLO view(s) were taken of the left breast. Prior study comparison: August 17, 2018, bilateral MG 3d screening mammo w/cad. August 16, 2017, left breast MG 3d diag mammo w/cad LT. The breast tissue is heterogeneously dense. This may lower the sensitivity of mammography. There are benign appearing round calcifications in the left breast. There is no discrete abnormality. These results were verbally communicated with the patient and result sheet given to the patient on 10/10/19. ASSESSMENT: Benign, BI-RAD 2 RECOMMENDATION: Follow-up diagnostic mammogram of the left breast in 1 year.
== END | disposition home or self-care (01) ==
LOC: RADMAMWWP 10:14
PROVIDERS: ATTEND Internal Medicine Hematology & Oncology
DX: Z85.3 Personal history of malignant neoplasm of breast (principal); Z90.11 Acquired absence of right breast and nipple
CPT/HCPCS: 77065; G0279; 77061

== ENCOUNTER → 2019-10-10 | Outpatient (CLI) | payer MEDICARE, BC ==
--- NOTE | 2019-10-10 13:23 | US ---
EXAMINATION TYPE: US thyroid st tissue head/neck DATE OF EXAM: 10/10/2019 COMPARISON: Thyroid ultrasound August 02, 2018 CLINICAL HISTORY: E04.9 nontoxic goiter. goiter, follow up GLAND SIZE: Right Lobe: 4.0 x 1.5 x 1.3 cm Overall Parenchyma: homogenous Left Lobe: 3.4 x 1.3 x 1.6 cm Overall Parenchyma: homogeneous Isthmus Thickness: 0.3 cm NODULES RIGHT: # of nodules measured on right: 0 LEFT: # of nodules measured on left: 0 ISTHMUS: # of nodules measured in the isthmus: 0 Bilateral neck scanned, no evidence of lymphadenopathy. Homogeneous small size thyroid with scattered small to tiny nodules measuring all under 5 mm long axi s. IMPRESSION: Persistent small size thyroid with stable tiny nodules, no new or enlarging greater than 1 cm nodules.
== END | disposition home or self-care (01) ==
LOC: RADUSWWP 10:11
PROVIDERS: ATTEND Family Medicine
DX: E07.89 Other specified disorders of thyroid (principal); E04.2 Nontoxic multinodular goiter
CPT/HCPCS: 76536

== ENCOUNTER → 2019-12-31 | Outpatient (CLI) | payer MEDICARE, BC ==
--- NOTE | 2019-12-31 12:56 | FL ---
EXAMINATION TYPE: FL barium swallow DATE OF EXAM: 12/31/2019 CLINICAL INDICATION: 69-year-old female R13.10, dysphagia COMPARISON: 03/28/2019 Total Fluoroscopy Time: 2 minutes 33 seconds Total images: 49 FINDINGS: The swallowing mechanism is normal and hypopharyngeal anatomy is preserved. The cervical and thoracic portions have a normal course and caliber but there is moderate tertiary pe ristalsis demonstrated throughout and some delay in clearance of contrast from the esophagus especial ly when the patient is prone/supine. The mucosa is normal and no persistent filling defect is encountered. Patient has had prior hiatal hernia repair. No recurrent hernia is identified. Gastroesophageal reflu x could not be elicited with Valsalva or positional maneuvers IMPRESSION: Presbyesophagus with moderate dysmotility. No stricture or suspicious filling defect. No recurrent hi atal hernia.
== END | disposition home or self-care (01) ==
LOC: RADUSWWP 09:33
PROVIDERS: ATTEND Surgery Plastic and Reconstructive Surgery
DX: K22.8 Other specified diseases of esophagus (principal)
CPT/HCPCS: 74220

== ENCOUNTER → 2020-10-10 | Outpatient (CLI) | payer MEDICARE, BC ==
--- NOTE | 2020-10-10 11:47 | MM ---
Reason for exam: additional evaluation requested from prior study. Last mammogram was performed 1 year ago. History: Patient is postmenopausal and has history of breast cancer at age 55. Family history of breast cancer in aunt at age 60. Mastectomy of the right breast, February 15, 2006. Chemotherapy, 2005. Benign excisional biopsy of the right breast, 2002. Benign excisional biopsy of the right breast, July 27, 2000. Took antineoplastic for 5 months. Physical Findings: Patient refused breast exam. MG 3D Diag Mammo W/Cad LT CC, MLO, and XCCL view(s) were taken of the left breast. Prior study comparison: October 10, 2019, left breast MG 3d diag mammo w/cad LT. August 17, 2018, bilateral MG 3d screening mammo w/cad. The breast tissue is heterogeneously dense. This may lower the sensitivity of mammography. No significant new findings when compared with previous films. These results were verbally communicated with the patient and result sheet given to the patient on 10/10/20. ASSESSMENT: Benign, BI-RAD 2 RECOMMENDATION: Follow-up diagnostic mammogram of the left breast in 1 year.
== END | disposition home or self-care (01) ==
LOC: RADMAMWWP 09:09
PROVIDERS: ATTEND Internal Medicine Hematology & Oncology
DX: R92.2 Inconclusive mammogram (principal); Z78.0 Asymptomatic menopausal state; Z80.3 Family history of malignant neoplasm of breast; Z85.3 Personal history of malignant neoplasm of breast; Z90.11 Acquired absence of right breast and nipple
CPT/HCPCS: 77065; G0279; 77061

== ENCOUNTER → 2020-10-28 | Outpatient (CLI) | payer MEDICARE, BC ==
--- NOTE | 2020-10-28 16:46 | CT ---
EXAMINATION TYPE: CT chest wo con DATE OF EXAM: 10/28/2020 COMPARISON: CT chest 07/02/2017 HISTORY: Chest pain and difficulty breathing. CT DLP: 408.5 mGycm. Automated Exposure Control for Dose Reduction was Utilized. TECHNIQUE: CT scan of the thorax is performed without IV contrast. FINDINGS: Lack of intravenous contrast compromises sensitivity. LUNGS: The lungs are stable, there is lingular and right middle lobe scarring or atelectasis as on pr ior, there is no concerning parenchymal mass or nodule identified. There is no pleural effusion or pneumothorax seen. The tracheobronchial tree is patent. MEDIASTINUM: Lack of IV contrast is noted to limit evaluation for mediastinal and especially hilar ad enopathy. Calcified mediastinal nodes are again noted, is calcified hilar nodes on the right and left as on prior. There are no definitive greater than 1 cm hilar or mediastinal lymph nodes. No cardio megaly or pericardial effusion is seen. Coronary artery calcifications are present. OTHER: Patient is post right mastectomy. Patient is post cholecystectomy. Probable splenule noted ant erior to the spleen. There is a generator present in the right gluteal region causing some artifact. Thoracic stimulator lead is present to the midthoracic spine level as on prior. IMPRESSION: Old granulomatous disease. Scarring within the lungs as described is stable compared to p rior CT. Coronary artery calcifications..
== END | disposition home or self-care (01) ==
LOC: RADCTMAIN 15:00
PROVIDERS: ATTEND Internal Medicine Sleep Medicine
DX: D71 Functional disorders of polymorphonuclear neutrophils (principal); R91.8 Other nonspecific abnormal finding of lung field; I25.10 Atherosclerotic heart disease of native coronary artery without angina pectoris
CPT/HCPCS: 71250

== ENCOUNTER → 2020-11-24 | Outpatient (CLI) | payer MEDICARE, BC ==
--- NOTE | 2020-11-24 11:56 | FL ---
Modified barium swallow. HISTORY: Dysphagia. Modified barium swallow was performed with the department of speech pathology. The patient was prese nted with various consistencies of barium. There is no evidence for aspiration or penetration. Full report is to follow from the department of speech pathology. Impression: Normal study.
== END | disposition home or self-care (01) ==
LOC: RADFLMAIN 10:41
PROVIDERS: ATTEND Otolaryngology
DX: R13.10 Dysphagia, unspecified (principal)
CPT/HCPCS: 74230

== ENCOUNTER → 2021-01-12 | Outpatient (CLI) | payer MEDICARE, BC ==
[2021-01-12 11:04] LABS: Basophils % (A) 0 %; Eosinophils # (A) 0.1 k/uL (0-0.7); Eosinophils % (A) 1 %; HCT 42.8 % (34.0-46.0); HGB 14.5 gm/dL (11.4-16.0); Lymphocytes # (A) 1.8 k/uL (1.0-4.8); Lymphocytes % (A) 18 %; MCHC 33.8 g/dL (31.0-37.0); MCV 85.8 fL (80.0-100.0); Mean Platelet Volume 7.3; Monocytes # (A) 0.6 k/uL (0-1.0); Monocytes % (A) 6 %; Neutrophils # (A) 7.1 k/uL (1.3-7.7); Neutrophils % (A) 73 %; Platelet Count 345 k/uL (150-450); RBC 4.99 m/uL (3.80-5.40); WBC 9.8 k/uL (3.8-10.6)
[2021-01-12 11:28] LABS: Albumin 4.6 g/dL (3.5-5.0); Calcium 9.8 mg/dL (8.4-10.2); Potassium 4.4 mmol/L (3.5-5.1); Total Bilirubin 0.6 mg/dL (0.2-1.3); Total Protein 7.2 g/dL (6.3-8.2)
--- NOTE | 2021-01-12 12:09 | CT ---
EXAMINATION TYPE: CT abdomen pelvis w con DATE OF EXAM: 01/12/2021 HISTORY: RLQ pain and nausea. CT DLP: 1408mGycm Automated Exposure Control for Dose Reduction was Utilized. CONTRAST: CT scan of the abdomen and pelvis is performed with IV Contrast, patient injected with 100 mL of Isov ue 300. COMPARISON: CT abdomen and pelvis October 21, 2017 FINDINGS: LUNG BASES: Coronary artery calcification or stent in the RCA distribution redemonstrated. LIVER/GB: Cholecystectomy clips again seen. Stable mild to moderate extrahepatic and central intrahep atic biliary dilatation for reference coronal image [address] PANCREAS: No significant abnormality is seen. SPLEEN: No significant abnormality is seen. ADRENALS: No significant abnormality is seen. KIDNEYS: No significant abnormality is seen. BOWEL: Oral contrast reaches level of the terminal ileum. No suspicious small or large bowel dilatati on. Appendix within normal limits extending posteriorly from the base of cecum. Suboptimal evaluation of distal bowel. Mild wall thickening in the transverse colon extends into left colon. Scattered div erticula in the left and sigmoid colon. [id number] wall thickening or level of sigmoid colon. N o significant fat stranding to suggest acute diverticulitis. UTERUS/ADNEXA: Anteverted uterus. Ovaries symmetric and within normal limits in size LYMPH NODES: No greater than 1cm abdominal or pelvic lymph nodes are appreciated. OSSEOUS STRUCTURES: Slight underlying scoliotic curvature. New stimulator device in the lower thoraci c spinal canal posteriorly. Mild disc space narrowing lower lumbar spine. Facet arthropathy lower lum bar spine. OTHER: Moderate to severe calcified plaque of the aorta extends into branch vessels. IMPRESSION: No significant acute finding is seen to account for patient's clinical symptoms of right lower quadrant pain and nausea. No bowel obstruction. Suboptimal evaluation of distal bowel. Areas of mild to moderate wall thickening prevertebral product of poor distention versus uncomplicated coliti s. Consider direct visualization of sigmoid colon that does not been performed in last 3 years to exc lude neoplasm at this level.
== END | disposition home or self-care (01) ==
LOC: RADCTMAIN 10:24
PROVIDERS: ATTEND Family Medicine
DX: K63.89 Other specified diseases of intestine (principal)
CPT/HCPCS: 80053; 82150; 83690; 85025; 74177; 36415; Q9967

== ENCOUNTER 2021-02-18 07:46 | Day surgery (SDC) | payer MEDICARE, BC ==
[2021-02-13 14:29] VITALS: BMI 29.8
[~2021-02-18 07:46] MED LIST changes: +HYDROmorphone 0.5 MG/0.5 ML SYRINGE IVP PRN
[2021-02-18 08:48] VITALS: RESP 16; TEMP 98
[2021-02-18] MEDS ORDERED: PROPOFOL 10 MG/ML 20 ML VIAL IV ONE (08:56)
[2021-02-18] MEDS ORDERED: LIDOCAINE 1% INJ 10MG/ML (20 ML MDV) ONE (08:56)
[2021-02-18 09:05] LABS: Glucose,Whole Blood 93 mg/dL (75-99)
--- NOTE | 2021-02-18 09:29 | P.PCN ---
Date of Procedure: 02/18/21 Procedure(s) Performed: Brief history: Patient is a pleasant 70-year-old white female scheduled for an elective upper endoscopy as well as colonoscopy as a part of evaluation of intermittent dysphagia to solids and throat discomfort for the last 2 years duration. She has [place] fundoplication done 2 years ago for reflux reflux symptoms and hiatal hernia and since then has been having intermittent dysphagia to solids. She also had a CAT scan of abdomen and pelvis done in December 2020 that showed some thickening of the colon suspicious for colitis. Procedure performed: Esophagogastroduodenoscopy with biopsy Colonoscopy with snare polypectomy Preoperative diagnosis: Intermittent dysphagia to solids and throat irritation Abdominal CAT scan of abdomen showing thickening: Anesthesia: MAC Procedure: After informed consent was obtained from the patient was brought into the endoscopy unit and IV sedation was administered by anesthesia under continuous monitoring. Initially upper endoscopy was done. The Olympus GF 160 video endoscope was inserted inserted into the mouth and esophagus intubated without any difficulty and was gradually advanced into the stomach and duodenum and carefully examined. The bulb and second part of the duodenum appeared normal. The scope was then withdrawn into the stomach adequately insufflated with air and upon careful examination the antrum had mild gastritis and biopsies were done from this area. The body, cardia and fundus appeared normal. The scope was then withdrawn into the esophagus. The GE junction was located at 40 cm to the incisors. It appeared regular with no erythema erosions or ulcerations. Rest of the esophagus appeared normal. biopsies were done from the distal esophagus. Patient tolerated the procedure well. At this time the patient continued to remain sedation. Initial digital rectal examination was normal. Olympus CF 160 video colonoscope was then inserted into the rectum and gradually advanced to the cecum without any difficulty. Careful examination was performed as the scope was gradually being withdrawn. The prep was excellent. The cecum, ascending colon appeared normal. The transverse colon there was a 5 mm polyp removed by snare polypectomy. In the sigmoid: There was a 3 mm polyp removed by snare polypectomy. Rest of the , transverse colon, descending colon, sigmoid colon and rectum appeared normal. scattered sigmoid diverticulosis seen. Retroflexion was performed in the rectum and no lesions were noted. Patient tolerated the procedure well. Impression: 1. Upper endoscopy revealed normal-appearing esophagus with no evidence of esophagitis or esophageal stricture, mild antral gastritis 2. Colonoscopy revealed 5 mm proximal transverse colon polyp and 3 mm sigmoid colon polyp status post polypectomy and scattered sigmoid diverticulosis Recommendations: Findings of this examination were discussed with the patient as well as her family. She was advised to follow with the biopsy results. if the biopsy reveals adenoma she can have a repeat colonoscopy in 5 years.
[2021-02-18 09:52] VITALS: BP 121/73; PULSE 75
== END 2021-02-18 10:10 | disposition home or self-care (01) ==
LOC: ORWHC2ENDO 07:46
PROVIDERS: ATTEND Internal Medicine Gastroenterology
DX: K63.5 Polyp of colon (principal); K21.9 Gastro-esophageal reflux disease without esophagitis; Z79.82 Long term (current) use of aspirin; Z79.899 Other long term (current) drug therapy; J44.9 Chronic obstructive pulmonary disease, unspecified; Z87.891 Personal history of nicotine dependence; I25.10 Atherosclerotic heart disease of native coronary artery without angina pectoris; I10 Essential (primary) hypertension; I49.3 Ventricular premature depolarization; I48.91 Unspecified atrial fibrillation; E78.5 Hyperlipidemia, unspecified; M19.90 Unspecified osteoarthritis, unspecified site; K58.9 Irritable bowel syndrome, unspecified; Z96.82 Presence of neurostimulator; Z90.10 Acquired absence of unspecified breast and nipple; Z98.890 Other specified postprocedural states; Z88.6 Allergy status to analgesic agent; Z88.1 Allergy status to other antibiotic agents; Z88.0 Allergy status to penicillin; Z88.2 Allergy status to sulfonamides; Z88.8 Allergy status to other drugs, medicaments and biological substances; Z91.018 Allergy to other foods; Z91.09 Other allergy status, other than to drugs and biological substances
CPT/HCPCS: 88305; 45385; 43239; J2001; J2704

== ENCOUNTER → 2021-10-13 | Outpatient (CLI) | payer MEDICARE, BC ==
--- NOTE | 2021-10-19 14:02 | MM ---
Reason for Exam: Additional evaluation requested from prior study. Last screening mammogram was performed 12 month(s) ago. Patient History: Menarche at age 8. First Full-Term at age 22. Postmenopausal. Breast cancer, age 55. 02/15/2006, Mastectomy on the Right side. 2002, Benign Excisional Biopsy on the right side. 07/27/2000, Benign Excisional Biopsy on the right side. 2005, Chemotherapy. Maternal aunt had breast cancer, age 60. Prior Study Comparison: 08/17/2018 Bilateral Screening Mammogram, [facility]. 10/10/2019 Left Diagnostic Mammogram, [facility]. 10/10/2020 Left Diagnostic Mammogram, [facility]. Tissue Density: Left: The breast tissue is heterogeneously dense. This may lower the sensitivity of mammography. Findings: Analyzed By CAD. Diffuse and regional punctate microcalcifications are unchanged. Asymmetric density superior and low view is also unchanged especially when comparing to the 2019 exam. No significant change from prior exams. Overall Assessment: Benign, BI-RAD 2 Management: Screening Mammogram of the left breast in 1 year. Patient should continue monthly self breast exams. A negative mammogram should not occlude additional follow-up of suspicious palpable abnormalities. Electronically signed and approved by: Drew Denny M.D. Radiologist
== END | disposition home or self-care (01) ==
LOC: RADMAMWWP 12:32
PROVIDERS: ATTEND Internal Medicine Hematology & Oncology
DX: R92.8 Other abnormal and inconclusive findings on diagnostic imaging of breast (principal); Z85.3 Personal history of malignant neoplasm of breast; Z78.0 Asymptomatic menopausal state; Z80.3 Family history of malignant neoplasm of breast; Z90.11 Acquired absence of right breast and nipple
CPT/HCPCS: 77065; G0279; 77061

== ENCOUNTER → 2021-12-18 | Outpatient (CLI) | payer MEDICARE, BC ==
--- NOTE | 2021-12-18 09:02 | CT ---
EXAMINATION TYPE: CT knee LT wo con CT DLP: 374.7 mGycm, Automated exposure control for dose reduction was used. DATE OF EXAM: 12/18/2021 7:15 AM COMPARISON: None CLINICAL INDICATION:Female, 71 years old with history of M25.562 pain L knee; , Contusion Lt Knee TECHNIQUE: Axial images were obtained of the left knee without the use of IV contrast. Additional co marsha and sagittal reformatted images and soft tissue and bone window were obtained for review. 3-D r econstruction was created on a separate workstation. FINDINGS: Soft tissue streaky edema within the subcutaneous tissues along the lateral distal thigh an d along the knee and anterior and lateral aspects of the leg. There is a subcutaneous hematoma measur ing 5.0 x 2.0 x 5.6 cm. There is no evidence of fracture, subluxation, or dislocation. Mild osteophyt e formation of the tibial plateau and patellar present. No joint effusion. IMPRESSION: 1. Subcutaneous swelling with anterior proximal left leg subcutaneous hematoma 2. No evidence of fracture.
== END | disposition home or self-care (01) ==
LOC: RADCTMAIN 06:48
PROVIDERS: ATTEND Orthopaedic Surgery
DX: S80.02XA Contusion of left knee, initial encounter (principal)

== ENCOUNTER → 2021-12-22 | Outpatient (CLI) | payer MEDICARE, BC ==
--- NOTE | 2021-12-22 10:13 | US ---
EXAMINATION TYPE: US venous doppler duplex LE LT DATE OF EXAM: 12/22/2021 9:27 AM COMPARISON: NONE CLINICAL HISTORY: I80.9 PHLEBITIS AND THROMBOPHLEBITIS. pt fell about 2 wks ago, left lateral knee an d soft tissue lower leg swelling SIDE PERFORMED: left TECHNIQUE: The lower extremity deep venous system is examined utilizing real time linear array sonog karsten with graded compression, doppler sonography and color-flow sonography. VESSELS IMAGED: Common Femoral Vein Deep Femoral Vein Greater Saphenous Vein * Femoral Vein Popliteal Vein Small Saphenous Vein * Proximal Calf Veins (* superficial vessels) Left Leg: negative for LLE dvt Scanned over the area of left lateral knee soft tissue swelling. There is a 5.0 x 1.5 x 4.5cm comple x fluid collection. IMPRESSION: 1. No evidence for DVT. 2. Nonspecific complex fluid collection.
== END | disposition home or self-care (01) ==
LOC: RADUSWWP 09:02
PROVIDERS: ATTEND Orthopaedic Surgery
DX: I80.9 Phlebitis and thrombophlebitis of unspecified site (principal); S80.02XD Contusion of left knee, subsequent encounter; S80.12XD Contusion of left lower leg, subsequent encounter; X58.XXXD Exposure to other specified factors, subsequent encounter

== ENCOUNTER → 2022-03-01 | Outpatient (CLI) | payer MEDICARE, BC ==
--- NOTE | 2022-03-01 10:40 | CT ---
EXAMINATION TYPE: CT abdomen pelvis w con DATE OF EXAM: 03/01/2022 HISTORY: Rt sided pain radiating to the Left, history of breast CA CT DLP: 1007.5mGycm Automated Exposure Control for Dose Reduction was Utilized. CONTRAST: CT scan of the abdomen and pelvis is performed with IV Contrast, patient injected with 70 mL of Isovu e 300. COMPARISON: CT abdomen and pelvis January 12, 2021 FINDINGS: LUNG BASES: Mild bibasilar linear scarring and/or atelectasis redemonstrated. Coronary artery calcifi cation and/or stent in the RCA distribution again seen. LIVER/GB: Cholecystectomy clips again seen. Stable mild to moderate extrahepatic and central intrahep atic biliary dilatation for reference coronal image [address] PANCREAS: No significant abnormality is seen. SPLEEN: No significant abnormality is seen. ADRENALS: No significant abnormality is seen. KIDNEYS: Symmetric cortical medullary uptake and excretion without hydronephrosis seen bilaterally. BOWEL: Oral contrast reaches level of the he distal transverse colon. No suspicious small or large roberto wel dilatation. Contrast-filled appendix within normal limits extending posteriorly from the base of cecum seen best on sagittal images. Suboptimal evaluation of distal bowel. Scattered diverticula in t he left and sigmoid colon. No CT evidence for acute diverticulitis. UTERUS/ADNEXA: Anteverted uterus. Ovaries symmetric and within normal limits in size. LYMPH NODES: No greater than 1cm abdominal or pelvic lymph nodes are appreciated. OSSEOUS STRUCTURES: Slight underlying scoliotic curvature redemonstrated. Persistent stimulator devic e in the lower thoracic spinal canal posteriorly. Mild disc space narrowing lower lumbar spine. Facet arthropathy lower lumbar spine. OTHER: Moderate to severe calcified plaque of the aorta extends into branch vessels. IMPRESSION: No significant new or acute finding is seen to account for patient's clinical symptoms of right-sided pain. No bowel obstruction.
== END | disposition home or self-care (01) ==
LOC: RADCTMAIN 08:59
PROVIDERS: ATTEND Family Medicine
DX: R10.31 Right lower quadrant pain (principal)
CPT/HCPCS: 74177; Q9967 ×2

== ENCOUNTER → 2022-05-13 | Outpatient (CLI) | payer MEDICARE, BC ==
--- NOTE | 2022-05-13 16:05 | US ---
EXAMINATION TYPE: US thyroid st tissue head/neck DATE OF EXAM: 05/13/2022 COMPARISON: CLINICAL HISTORY: E04.9 NONTOXIC GOITER. Not on thyroid meds. No abnormal labs. GLAND SIZE: Right Lobe: 3.6 x 1.0 x 1.5 cm Overall Parenchyma: heterogenous Left Lobe: 3.3 x 1.4 x 1.0 cm Overall Parenchyma: heterogeneous Isthmus Thickness: 0.3 cm NODULES RIGHT: # of nodules measured on right: 2 1. 0.6 X 0.4 x 0.4 cm, mid lateral, cystic or almost completely cystic, hypoechoic nodule, which is wider than tall, with smooth margins, without echogenic foci. Prior size: No prior measured 2. 0.4 X 0.4 x 0.3 cm, lower medial, solid or almost completely solid, hypoechoic nodule, which is wider than tall, with ill-defined margins, without echogenic foci. Prior size: No prior measured LEFT: # of nodules measured on left: 0 ISTHMUS: # of nodules measured in the isthmus: 0 Bilateral neck scanned, no evidence of lymphadenopathy. IMPRESSION: 1. No suspicious nodules. Small subcentimeter nodules present bilaterally.
== END | disposition home or self-care (01) ==
LOC: RADUSWWP 14:26
PROVIDERS: ATTEND Family Medicine
DX: E04.2 Nontoxic multinodular goiter (principal); E04.9 Nontoxic goiter, unspecified
CPT/HCPCS: 76536

== ENCOUNTER → 2022-10-06 | Outpatient (CLI) | payer MEDICARE, BC ==
--- NOTE | 2022-10-06 14:13 | FL ---
EXAMINATION TYPE: FL barium swallow DATE OF EXAM: 10/06/2022 12:01 PM COMPARISON: CT chest most recent 10/28/2020, barium swallow 12/31/2019 CLINICAL INDICATION:Female, 72 years old with history of R13.10 dysphagia; [facility] TECHNIQUE: The procedure was explained and patient history elicited. All patient questions were ans wered prior to start of procedure. Multiple spot fluoroscopic images of the esophagus were obtained a fter the oral ingestion of effervescent crystals and liquid barium as the contrast agent. Fluoroscopic time: 50 seconds Fluoroscopic images: 0 Radiographs taken: 268 DAP: 591.19 FINDINGS: Postsurgical changes of the distal esophagus. No hernia identified. Tertiary contractions a re present superimposed on primary and secondary contractions. The esophageal mucosa is smooth withou t evidence of focal stricture, ulceration, or abnormal outpouching. No gastroesophageal reflux disea se was identified. Additional imaging was performed while the patient made a cough with repetitive rattle sounds. The ep iglottis was evaluated during this time the epiglottis was motionless. Sound may have been coming fro m the patient's uvula as the patient was able to stop the sound when instructed to close her mouth an d plug her nose. IMPRESSION: 1. Persistent Presbyesophagus with moderate dysmotility. No stricture or suspicious filling defect. No recurrent hiatal hernia. 2. Patient presented with repetitive sound upon coughing/laughing. Additional imaging was performed while the patient made a cough with repetitive rattle sounds. The epiglottis was evaluated during thi s time the epiglottis was motionless. Sound may have been coming from the patient's uvula as the norma ent was able to stop the sound when instructed to close her mouth and plug her nose while the noise w as happening and the noise abruptly stopped. Consider uvula source of patient's repetitive sound.
== END | disposition home or self-care (01) ==
LOC: RADUSWWP 10:49
PROVIDERS: ATTEND Otolaryngology
DX: K22.89 Other specified disease of esophagus (principal); R13.10 Dysphagia, unspecified
CPT/HCPCS: 74220

== ENCOUNTER → 2022-10-19 | Outpatient (CLI) | payer MEDICARE, BC ==
--- NOTE | 2022-10-19 09:18 | MM ---
Reason for Exam: Follow-up at short interval from prior study. Last mammogram was performed 1 year(s) and 1 month(s) ago. Patient History: Menarche at age 8. First Full-Term at age 22. Postmenopausal. Breast cancer, age 55. 02/15/2006, Mastectomy on the Right side. 2002, Benign Excisional Biopsy on the right side. 07/27/2000, Benign Excisional Biopsy on the right side. 2005, Chemotherapy. Maternal aunt had breast cancer, age 60. Prior Study Comparison: 10/10/2019 Left Diagnostic Mammogram, [facility]. 10/10/2020 Left Diagnostic Mammogram, [facility]. 10/13/2021 Left MG 3D diag mammo w/cad , [facility]. Tissue Density: Left: The breast tissue is heterogeneously dense. This may lower the sensitivity of mammography. Findings: Analyzed By CAD. Diffuse and regional punctate calcifications redemonstrated and on the left. No significant change from prior exams. Overall Assessment: Benign, BI-RAD 2 Management: Screening Mammogram of the left breast in 1 year. . Results were given to the patient verbally at the time of exam. Patient should continue monthly self-breast exams. A clinical breast exam by your physician is recommended on an annual basis. This exam should not preclude additional follow-up of suspicious palpable abnormalities. Electronically signed and approved by: Drew Denny M.D. Radiologist
== END | disposition home or self-care (01) ==
LOC: RADMAMWWP 08:36
PROVIDERS: ATTEND Internal Medicine Hematology & Oncology
DX: C50.919 Malignant neoplasm of unspecified site of unspecified female breast (principal); J45.909 Unspecified asthma, uncomplicated; Z78.0 Asymptomatic menopausal state; Z80.3 Family history of malignant neoplasm of breast
CPT/HCPCS: 77065; G0279; 77061

== ENCOUNTER → 2022-11-19 | Outpatient (CLI) | payer MEDICARE, BC ==
--- NOTE | 2022-11-19 10:20 | US ---
EXAMINATION TYPE: US thyroid st tissue head/neck DATE OF EXAM: 11/19/2022 COMPARISON: 05/13/2022 CLINICAL INDICATION: Female, 72 years old with history of E04.1 NONTOXIC SNGL THYROID NOD; GLAND SIZE: Right Lobe: 3.9 x 1.5 x 1.1 cm Overall Parenchyma: homogenous Left Lobe: 4.4 x 1.2 x 1.4 cm Overall Parenchyma: homogeneous Isthmus Thickness: .3 cm NODULES RIGHT: # of nodules measured on right: subcentimeter nodules measured largest. 1. 0.7 X 0.4 x 0.4 cm, upper lateral, Prior size: 0.6 x 0.4 x 0.4 cm TIRADS Score: 3 TIRADS Category 3: Mildly Suspicious Composition: Mixed cystic and solid (1 point). Echogenicity: Hypoechoic (2 points). Shape: Wider than tall (0 points). Margin: Smooth (0 points). Echogenic foci: None or large comet-tail artifacts (0 points) Recommendation: If >2.5cm: FNA; If >1.5cm: Follow up at 1,3,5 years LEFT: # of nodules measured on left: 0 ISTHMUS: # of nodules measured in the isthmus: 0 Bilateral neck scanned, no evidence of lymphadenopathy. IMPRESSION: Right subcentimeter thyroid nodule, recommendations as described above.
--- NOTE | 2022-11-19 11:10 | US ---
EXAMINATION TYPE: US extremity nonvasc mass LT DATE OF EXAM: 11/19/2022 COMPARISON: NONE CLINICAL INDICATION: Female, 72 years old with history of S80.02XA L KNEE; edema left medial knee po ssible hematoma. TECHNIQUE: Grayscale imaging left medial knee. FINDINGS: No evidence of hematoma visualized on today's exam. No organizing fluid collection or mass. No signif icant subcutaneous changes edema. IMPRESSION: No organizing fluid collection or mass.
== END | disposition home or self-care (01) ==
LOC: RADUSWWP 08:51
PROVIDERS: ATTEND Family Medicine
DX: E04.1 Nontoxic single thyroid nodule (principal); S80.02XA Contusion of left knee, initial encounter
CPT/HCPCS: 76536

== ENCOUNTER → 2023-10-24 | Outpatient (CLI) | payer MEDICARE, BC ==
--- NOTE | 2023-10-24 13:06 | MM ---
Reason for Exam: Hx of cancer, neoadjuvant chemotherapy. Last screening mammogram was performed 12 month(s) ago. Patient History: Menarche at age 8. First Full-Term at age 22. Postmenopausal. Breast cancer, age 55. 02/15/2006, Mastectomy on the Right side. 2002, Benign Excisional Biopsy on the right side. 07/27/2000, Benign Excisional Biopsy on the right side. 2005, Chemotherapy. Maternal aunt had breast cancer, age 60. Prior Study Comparison: 10/10/2020 Left Diagnostic Mammogram, [facility]. 10/13/2021 Left MG 3D diag mammo w/cad LT, [facility]. 10/19/2022 Left MG 3D diag mammo w/cad LT, [facility]. Tissue Density: Left: The breasts are heterogeneously dense, which may obscure small masses. Findings: Analyzed By CAD. No distinct mass identified. Scattered benign calcifications persists. Overall Assessment: Benign, BI-RAD 2 Management: Diagnostic Mammogram of the left breast in 1 year. . Results were given to the patient verbally at the time of exam. Patient should continue monthly self-breast exams. A clinical breast exam by your physician is recommended on an annual basis. This exam should not preclude additional follow-up of suspicious palpable abnormalities. Note on Michelle scores and lifetime risk: 1. A Michelle score greater than 3% is considered moderate risk. If this is the case, consider specialist referral to assess eligibility for a risk reducing agent. 2. If overall lifetime risk for the development of breast cancer is 20% or higher, the patient may qualify for future screening with alternating mammogram and breast MRI. Electronically signed and approved by: Roc Bustos M.D. Radiologis
== END | disposition home or self-care (01) ==
LOC: RADMAMWWP 12:42
PROVIDERS: ATTEND Internal Medicine Hematology & Oncology
DX: C50.919 Malignant neoplasm of unspecified site of unspecified female breast (principal); R92.332 Mammographic heterogeneous density, left breast; M25.529 Pain in unspecified elbow; J45.909 Unspecified asthma, uncomplicated; M25.50 Pain in unspecified joint; Z78.0 Asymptomatic menopausal state; Z80.3 Family history of malignant neoplasm of breast
CPT/HCPCS: 77065; G0279; 77061

== ENCOUNTER 2023-11-27 21:54 | Inpatient (IN) | payer MEDICARE, BC ==
--- NOTE | 2023-11-27 22:35 | ED ---
General Adult HPI - General Source: patient, RN notes reviewed Mode of arrival: ambulatory Limitations: no limitations <Rubina Santiago - Last Filed: 11/27/23 22:34> <Leroy Izquierdo - Last Filed: 11/28/23 00:47> - General Chief complaint: Shortness of Breath Stated complaint: trouble breathing Time Seen by Provider: 11/27/23 22:34 - History of Present Illness Initial comments: Quick note: 73-year-old female presents to the emergency department for evaluation of shortness of breath. Patient states that she feels like something in her throat is causing this sensation. She states that she had an EGD done and this started following this. (Rubina Santiago) Dictation was produced using [employer] dictation software. please excuse any grammatical, word or spelling errors. Chief Complaint: 73-year-old female history of COPD presents to the emergency department for shortness of breath History of Present Illness: Patient 73-year-old female presents to the emergency department for chief complaint of shortness of breath. She has a history of COPD. at bedside states that she appears pale. Patient states her symptoms worse when she exerts herself. Patient not sure that if this is her COPD acting up. She recently did have EGD since then has been reportedly having worsened symptoms of throat sensation. No black or bloody stools. No history of GI bleed. She takes anticoagulation medications for A-fib. The ROS documented in this emergency department record has been reviewed and confirmed by me. Those systems with pertinent positive or negative responses have been documented in the HPI. All other systems are other negative and/or noncontributory. (Leroy Izqueirdo) - Related Data Home Medications Medication Instructions Recorded Confirmed Albuterol Sulfate [Proair Hfa] 2 puff INHALATION Q6HR PRN 09/12/14 02/18/21 Cholecalciferol [Vitamin D3 (25 2,000 unit PO DAILY 09/12/14 02/18/21 Mcg = 1000 Iu)] Nitroglycerin Sl Tabs [Nitrostat] 0.4 mg SUBLINGUAL Q5M PRN 09/12/14 02/18/21 Rosuvastatin Calcium [Crestor] 40 mg PO DAILY 09/12/14 02/18/21 lisinopriL [Zestril] 5 mg PO BID 09/12/14 02/13/21 Ezetimibe [Zetia] 10 mg PO HS 07/02/17 02/13/21 ALPRAZolam [Xanax] 0.125 mg PO TID PRN 11/15/18 02/18/21 Ipratropium-Albuterol Nebulize 3 ml INHALATION QID PRN 11/15/18 02/18/21 [Duoneb 0.5 mg-3 mg/3 ml Soln] Acetaminophen [Tylenol Extra 1,000 mg PO TID PRN 02/12/19 02/18/21 Strength] Isosorbide Mononitrate ER [Imdur] 30 mg PO DAILY 02/13/21 02/13/21 Metoprolol Tartrate [Lopressor] 50 mg PO TID 02/13/21 02/13/21 Pantoprazole Sodium [Protonix] 40 mg PO BID 02/13/21 02/18/21 Vit C/E/Zn/Coppr/Lutein/Zeaxan 2 each PO DAILY 02/13/21 02/13/21 [Preservision Areds 2 Softgel] dexAMETHasone [Decadron] 0.75 mg PO DIRECTED 02/13/21 02/18/21 Previous Rx's Medication Instructions Recorded Aspirin 81 mg PO DAILY chew 04/30/16 Apixaban [Eliquis] 5 mg PO BID #0 tab 02/16/19 Allergies Allergy/AdvReac Type Severity Reaction Status Date / Time adhesive tape Allergy Rash/Hives Verified 11/27/23 22:12 amoxicillin trihydrate Allergy Itching Verified 11/27/23 22:12 [From Augmentin] calcium Allergy Burning on Verified 11/27/23 22:12 inside itching on outside Cephalosporins Allergy Burning on Verified 11/27/23 22:12 inside -itching on outside clarithromycin [From Biaxin] Allergy burning on Verified 11/27/23 22:12 inside, itching on outside loratadine [From Claritin] Allergy Burning on Verified 11/27/23 22:12 inside- itching on outside NSAIDS (Non-Steroidal Allergy Burning on Verified 11/27/23 22:12 Anti-Inflamma inside-itching on outside potassium clavulanate Allergy Itching Verified 11/27/23 22:12 [From Augmentin] prednisone Allergy Burning on Verified 11/27/23 22:12 inside -itching on outside soy Allergy Burning on Verified 11/27/23 22:12 inside - itching on outside sulfamethoxazole Allergy Burning on Verified 06/07/19 08:56 [From Bactrim] inside -itching on outside tramadol HCl [From Ultram] Allergy Burning on Verified 06/07/19 08:56 inside -itching on outside trimethoprim [From Bactrim] Allergy Burning on Verified 06/07/19 08:56 inside -itching on outside steroids Allergy Burning on Uncoded 06/07/19 08:56 inside-itching on outside Review of Systems ROS Other: All systems not noted in ROS Statement are negative. <Rubina Santiago - Last Filed: 11/27/23 22:34> ROS Other: All systems not noted in ROS Statement are negative. <Leroy Izquierdo - Last Filed: 11/28/23 00:47> ROS Statement: Those systems with pertinent positive or pertinent negative responses have been documented in the HPI. Past Medical History Past Medical History: Atrial Fibrillation, Asthma, Coronary Artery Disease (CAD), Cancer, Chest Pain / Angina, COPD, Fibromyalgia, GERD/Reflux, Hyperlipidemia, Myocardial Infarction ([place]), Osteoarthritis (OA), Pneumonia, Thyroid Disorder Additional Past Medical History / Comment(s): HX PVC'S, IBS, CHRONIC LOW BACK PAIN RADIATING INTO RODRICK THIGHS-BULGING CERVICAL DISC, RT BREAST CA, back stimulator implant, hx hiatal hernia, hx ulcer, small thyroid nodules, lymphedema rt arm (No IV BP rt arm), "feel a vibration in esophagus when cough or sneeze", oc hurts when food goes down,indigestion and heartburn, on steroids for "ear pressure"(states Dr Stout aware) Last Myocardial Infarction Date:: 1997 History of Any Multi-Drug Resistant Organisms: None Reported Past Surgical History: Breast Surgery, Section, Cholecystectomy, Heart Catheterization, Hernia Repair Additional Past Surgical History / Comment(s): garrick fundlaplasty, MASTECTOMY RT BREAST, MANIPULATION LT ARM, left ROATOR CUFF,STRABISMUS EYE SURGERY, CTR LT WRIST,LT GREAT TOE HAS T SHAPED INPLANT IN, D&C, Past Anesthesia/Blood Transfusion Reactions: Previous Problems w/ Anesthesia Additional Past Anesthesia/Blood Transfusion Reaction / Comment(s): patient and mom-hard time coming out of it Past Psychological History: No Psychological Hx Reported Smoking Status: Former smoker Past Alcohol Use History: None Reported Past Drug Use History: None Reported - Past Family History Mother Family Medical History: Deep Vein Thrombosis (DVT), Pulmonary Embolus Additional Family Medical History / Comment(s): . <Rubina Santiago - Last Filed: 11/27/23 22:34> General Exam Limitations: no limitations <Rubina Santiago - Last Filed: 11/27/23 22:34> <Leroy Izquierdo - Last Filed: 11/28/23 00:47> - General Exam Comments Initial Comments: Visual Physical Exam Vital signs reviewed General: Well-appearing, nontoxic, no acute distress. Head: Normocephalic, atraumatic Eyes: PERRLA, EOMI ENT: Airway patent Chest: Nonlabored breathing Skin: No visual rash, normal skin tone Neuro: Alert and oriented 3 Musculoskeletal: No gross abnormalities (Rubina Santiago) PHYSICAL EXAM: General Impression: Alert and oriented x3, not in acute distress HEENT: Normocephalic atraumatic, extra-ocular movements intact, pupils equal and reactive to light bilaterally, mucous membranes moist. Cardiovascular: Heart regular rate and rhythm Chest: Able to complete full sentences, no retractions, no tachypnea Abdomen: abdomen soft, non-tender, non-distended, no organomegaly Musculoskeletal: Pulses present and equal in all extremities, no peripheral edema Motor: no focal deficits noted Neurological: CN II-XII grossly intact, no focal motor or sensory deficits noted Skin: Intact with no visualized rashes Psych: Normal affect and mood (Leroy Izquierdo) Course Vital Signs 11/27/23 11/27/23 22:07 23:58 Temperature 97.8 F Pulse Rate 119 H 99 Respiratory 24 16 Rate Blood Pressure 112/60 156/88 O2 Sat by Pulse 90 L 96 Oximetry EKG Findings - EKG Comments: EKG Findings:: My EKG interpretation: Ventricular rate 115, sinus tachycardia,. 144, cures 125, QTc 412. No [place] prolongation, no QTC prolongation, no ST or T- wave changes noted. Overall, this EKG is unremarkable <Leroy Izquierdo - Last Filed: 11/28/23 00:47> Medical Decision Making <Rubina Santiago - Last Filed: 11/27/23 22:34> - Lab Data Result diagrams: 11/27/23 22:22 11/27/23 22:22 <Leroy Izquierdo - Last Filed: 11/28/23 00:47> - Medical Decision Making Quick note preformed and electronically signed by SHEREEN Lam-C (Rubina Santiago) Was pt. sent in by a medical professional or institution (SHEREEN Gamez, [employer]YING MACHINE [employer], urgent care, hospital, or [facility]...) When possible be specific @ -No Did you speak to anyone other than the patient for history (EMS, parent, family, police, friend...)? What history was obtained from this source @ -No Did you review nursing and triage notes (agree or disagree)? Why? @ -I reviewed and agree with nursing and triage notes Were old charts reviewed (outside hosp., previous admission, EMS record, old EKG, old radiological studies, urgent care reports/EKG's, [facility] records)? Report findings @ -No old charts were reviewed Differential Diagnosis (chest pain, altered mental status, abdominal pain women, abdominal pain men, vaginal bleeding, musculoskeletal, weakness, fever, dyspnea, syncope, headache, dizziness, GI bleed, back pain, seizure, CVA, palpatations, mental health)? @ -Differential Dyspnea: Coronary syndrome, arrhythmia, tamponade, asthma, COPD, pulmonary embolism, pneumonia, pneumothorax, pulmonary effusion, anaphylaxis, diabetic ketoacidosis, flailed chest, pulmonary contusion, diaphragmatic rupture, anemia, neuromuscular, this is not meant to be an all-inclusive list. EKG interpreted by me (3pts min.). @ -See above X-rays interpreted by me (1pt min.). @ -X-ray ordered by triage PA shows no acute processes. X-ray shows no acute processes. However note of 1/2 cm nodule near the left lung base CT interpreted by me (1pt min.). @ -None done U/S interpreted by me (1pt. min.). @ -None done What testing was considered but not performed or refused? (CT, X-rays, U/S, labs)? Why? @ -None What meds were considered but not given or refused? Why? @ -None Was smoking cessation discussed for >3mins.? @ -No Were there social determinants of health that impacted care today? How? (Homelessness, low income, unemployed, alcoholism, drug addiction, transportation, low edu. Level, literacy, decrease access to med. care, nursing home, rehab)? @ -No Was there de-escalation of care discussed even if they declined (Discuss DNR or withdrawal of care, Hospice)? DNR status @ -No What co-morbidities impacted this encounter? (DM, HTN, Smoking, COPD, CAD, Cancer, CVA, ARF, Chemo, Hep., AIDS, mental health diagnosis, sleep apnea, morbid obesity)? @ -None Was patient admitted / discharged? Hospital course, mention meds given and route, prescriptions, significant lab abnormalities, going to OR and other pertinent info. @ -73-year-old female presents to the emergency department for chief complaint of dyspnea. Patient mildly tachycardic however well-appearing at the bedside. She is not tachypneic showing any signs of respiratory distress. Patient placed on oxygen for hypoxia of 90%. Reported history of COPD. She takes anticoagu lation medications for A-fib she does have some wheezing however well-appearing at the bedside. Laboratory evaluation obtained. Hemoglobin is 6.5 with microcytosis suggesting iron deficiency anemia. Coag panel metabolic panel is within acceptable limits. Stool gallbladder is negative. Imaging studies are negative. Patient ordered for blood transfusion will be admitted observation. Did you discuss the management of the patient with other professionals (professionals i.e. , PA, [employer]YING MACHINE [employer]PER[employer], lab, RT, psych nurse, social worker clinical, biodiesel production technician, teacher, photographic intelligence officer, oil field caser)? Give summary @ -Case discussed with hospitalist for admission Was critical care preformed (if so, how long)? @ -Yes, 33 minutes for critical anemia Undiagnosed new problem with uncertain prognosis? @ -No Drug Therapy requiring intensive monitoring for toxicity (Heparin, Nitro, Insulin, Cardizem)? @ -No Were any procedures done? @ -No Diagnosis/symptom? Acute, or Chronic, or Acute on Chronic? Uncomplicated (with out systemic symptoms) or Complicated (systemic symptoms)? @ -Anemia Side effects of treatment? @ -No Exacerbation, Progression, or Severe Exacerbation? @ -No Poses a threat to life or bodily function? How? (Chest pain, [place], [place], pneumonia, PE, COPD, DKA, ARF, appy, cholecystitis, CVA, Diverticulitis, Homicidal, Suicidal, threat to staff... and all critical care pts) @ -yes (Leroy Izquierdo) - Lab Data Lab Results 11/27/23 11/27/23 11/27/23 Range/Units 22:22 22:22 22:22 WBC 12.2 H (3.8-10.6) k/uL RBC 4.04 (3.80-5.40) m/uL Hgb 6.5 L* (11.4-16.0) gm/dL Hct 25.2 L (34.0-46.0) % MCV 62.3 L (80.0-100.0) fL MCH 16.1 L (25.0-35.0) pg MCHC 25.8 L (31.0-37.0) g/dL RDW 20.3 H (11.5-15.5) % Plt Count 562 H (150-450) k/uL MPV 10.9 Neutrophils % 74 % Lymphocytes % 13 % Monocytes % 8 % Eosinophils % 1 % Basophils % 1 % Neutrophils # 9.0 H (1.3-7.7) k/uL Lymphocytes # 1.5 (1.0-4.8) k/uL Monocytes # 1.0 (0-1.0) k/uL Eosinophils # 0.2 (0-0.7) k/uL Basophils # 0.1 (0-0.2) k/uL Manual Slide Review Performed Hypochromasia Marked Poikilocytosis Slight Anisocytosis Moderate Microcytosis Marked Tear Drop Cells Present PT 12.0 (10.0-12.5) sec INR 1.1 (<1.2) APTT 25.7 (22.0-30.0) sec Sodium 143 (137-145) mmol/L Potassium 4.3 (3.5-5.1) mmol/L Chloride 108 H (98-107) mmol/L Carbon Dioxide 29 (22-30) mmol/L Anion Gap 6 mmol/L BUN 15 (7-17) mg/dL Creatinine 0.63 (0.52-1.04) mg/dL Est GFR (CKD-EPI)AfAm >90 (>60 ml/min/1.73 sqM) Est GFR (CKD-EPI)NonAf 88 (>60 ml/min/1.73 sqM) Glucose 101 H (74-99) mg/dL Plasma Lactic Acid Satinder (0.7-2.0) mmol/L Calcium 8.7 (8.4-10.2) mg/dL Total Bilirubin 0.7 (0.2-1.3) mg/dL AST 23 (14-36) U/L ALT 11 (4-34) U/L Alkaline Phosphatase 69 (38-126) U/L Troponin I (0.000-0.034) ng/mL Total Protein 6.3 (6.3-8.2) g/dL Albumin 3.7 (3.5-5.0) g/dL Stool Occult Blood (Negative) Blood Type Recheck Bld Type Recheck Status Spec Expiration Date 11/27/23 11/27/23 11/27/23 Range/Units 22:22 22:22 23:15 WBC (3.8-10.6) k/uL RBC (3.80-5.40) m/uL Hgb (11.4-16.0) gm/dL Hct (34.0-46.0) % MCV (80.0-100.0) fL MCH (25.0-35.0) pg MCHC (31.0-37.0) g/dL RDW (11.5-15.5) % Plt Count (150-450) k/uL MPV Neutrophils % % Lymphocytes % % Monocytes % % Eosinophils % % Basophils % % Neutrophils # (1.3-7.7) k/uL Lymphocytes # (1.0-4.8) k/uL Monocytes # (0-1.0) k/uL Eosinophils # (0-0.7) k/uL Basophils # (0-0.2) k/uL Manual Slide Review Hypochromasia Poikilocytosis Anisocytosis Microcytosis Tear Drop Cells PT (10.0-12.5) sec INR (<1.2) APTT (22.0-30.0) sec Sodium (137-145) mmol/L Potassium (3.5-5.1) mmol/L Chloride (98-107) mmol/L Carbon Dioxide (22-30) mmol/L Anion Gap mmol/L BUN (7-17) mg/dL Creatinine (0.52-1.04) mg/dL Est GFR (CKD-EPI)AfAm (>60 ml/min/1.73 sqM) Est GFR (CKD-EPI)NonAf (>60 ml/min/1.73 sqM) Glucose (74-99) mg/dL Plasma Lactic Acid Satinder 1.2 (0.7-2.0) mmol/L Calcium (8.4-10.2) mg/dL Total Bilirubin (0.2-1.3) mg/dL AST (14-36) U/L ALT (4-34) U/L Alkaline Phosphatase (38-126) U/L Troponin I <0.012 (0.000-0.034) ng/mL Total Protein (6.3-8.2) g/dL Albumin (3.5-5.0) g/dL Stool Occult Blood (Negative) Blood Type Recheck No Previous Record Bld Type Recheck Status CABO Indicated Spec Expiration Date 11/30/2023 - 231411/27/23 Range/Units 23:54 WBC (3.8-10.6) k/uL RBC (3.80-5.40) m/uL Hgb (11.4-16.0) gm/dL Hct (34.0-46.0) % MCV (80.0-100.0) fL MCH (25.0-35.0) pg MCHC (31.0-37.0) g/dL RDW (11.5-15.5) % Plt Count (150-450) k/uL MPV Neutrophils % % Lymphocytes % % Monocytes % % Eosinophils % % Basophils % % Neutrophils # (1.3-7.7) k/uL Lymphocytes # (1.0-4.8) k/uL Monocytes # (0-1.0) k/uL Eosinophils # (0-0.7) k/uL Basophils # (0-0.2) k/uL Manual Slide Review Hypochromasia Poikilocytosis Anisocytosis Microcytosis Tear Drop Cells PT (10.0-12.5) sec INR (<1.2) APTT (22.0-30.0) sec Sodium (137-145) mmol/L Potassium (3.5-5.1) mmol/L Chloride (98-107) mmol/L Carbon Dioxide (22-30) mmol/L Anion Gap mmol/L BUN (7-17) mg/dL Creatinine (0.52-1.04) mg/dL Est GFR (CKD-EPI)AfAm (>60 ml/min/1.73 sqM) Est GFR (CKD-EPI)NonAf (>60 ml/min/1.73 sqM) Glucose (74-99) mg/dL Plasma Lactic Acid Satinder (0.7-2.0) mmol/L Calcium (8.4-10.2) mg/dL Total Bilirubin (0.2-1.3) mg/dL AST (14-36) U/L ALT (4-34) U/L Alkaline Phosphatase (38-126) U/L Troponin I (0.000-0.034) ng/mL Total Protein (6.3-8.2) g/dL Albumin (3.5-5.0) g/dL Stool Occult Blood Negative (Negative) Blood Type Recheck Bld Type Recheck Status Spec Expiration Date Disposition <Rubina Santiago - Last Filed: 11/27/23 22:34> Decision Time: 00:47 <Leroy Izquierdo - Last Filed: 11/28/23 00:47> Clinical Impression: Anemia Disposition: ADMITTED IP TO THIS [facility] Condition: Fair Referrals: Fortino Souza DO [Primary Care Provider] - 1-2 days
[2023-11-27 22:43] LABS: Anisocytosis Moderate; Basophils # (A) 0.1 k/uL (0-0.2); Basophils % (A) 1 %; Eosinophils # (A) 0.2 k/uL (0-0.7); Eosinophils % (A) 1 %; HCT 25.2 % (34.0-46.0); Hypochromasia Marked; Lymphocytes # (A) 1.5 k/uL (1.0-4.8); Lymphocytes % (A) 13 %; MCH 16.1 pg (25.0-35.0); MCHC 25.8 g/dL (31.0-37.0); MCV 62.3 fL (80.0-100.0); Mean Platelet Volume 10.9; Microcytosis Marked; Monocytes % (A) 8 %; Neutrophils % (A) 74 %; Platelet Count 562 k/uL (150-450); Poikilocytosis Slight; RBC 4.04 m/uL (3.80-5.40); RDW 20.3 % (11.5-15.5); WBC 12.2 k/uL (3.8-10.6)
[2023-11-27 22:47] LABS: INR 1.1 (<1.2); Partial Thromboplastin Time 25.7 sec (22.0-30.0)
[2023-11-27 22:51] LABS: HGB 6.5 gm/dL (11.4-16.0)
[2023-11-27 23:07] LABS: ALT 11 U/L (4-34); AST 23 U/L (14-36); African American GFR (CKD) >90 (>60 ml/min/1.73 sqM); Albumin 3.7 g/dL (3.5-5.0); Alkaline Phosphatase 69 U/L (38-126); Anion Gap 6 mmol/L; Blood Urea Nitrogen 15 mg/dL (7-17); Calcium 8.7 mg/dL (8.4-10.2); Carbon Dioxide 29 mmol/L (22-30); Chloride 108 mmol/L (98-107); Glucose 101 mg/dL (74-99); Non-African American GFR(CKD) 88 (>60 ml/min/1.73 sqM); Potassium 4.3 mmol/L (3.5-5.1); Sodium 143 mmol/L (137-145); Total Bilirubin 0.7 mg/dL (0.2-1.3); Total Protein 6.3 g/dL (6.3-8.2)
[2023-11-27 23:31] LABS: Tear Drop Cells Present
--- NOTE | 2023-11-28 00:27 | XR ---
EXAM: XR Chest, 2 Views CLINICAL HISTORY: ITS.REASON XR Reason: difficulty breathing TECHNIQUE: Frontal and lateral views of the chest. COMPARISON: Chest x-ray study of 07/02/2017. FINDINGS: Lungs: A 0.5 cm new nodule is noted near the left lung base. Minimal areas of scarring and subsegmental atelectasis in the left mid lower lung zones. Pleural space: Unremarkable. No pneumothorax. Heart: Heart is top normal in size. No cardiomegaly. Mediastinum: Unremarkable. Normal mediastinal contour. Bones/joints: Unremarkable. No acute fracture. Vasculature: Atherosclerotic disease. Tubes, lines and devices: Nerve stimulator lead wires are noted in place with their distal ends at the level of the mid thoracic spine, unchanged. IMPRESSION: New 0.5 cm nodule near the left lung base. CT imaging of the chest without contrast is advised to follow.
--- NOTE | 2023-11-28 00:28 | XR ---
EXAM: XR Soft Tissue Neck CLINICAL HISTORY: ITS.REASON XR Reason: poain TECHNIQUE: Frontal and lateral views of the soft tissues of the neck. COMPARISON: No previous studies. FINDINGS: Airway: The airways are unremarkable. Bones/joints: Minimal grade 1 retrolisthesis of C3 upon C4 vertebrae. Mild to moderate degenerative disc disease. There is a normal relationship of C1 and C2. No acute fracture. Soft tissues: Prevertebral soft tissues are unremarkable. Normal epiglottis. IMPRESSION: 1. Minimal grade 1 retrolisthesis C3 on C4 vertebrae. 2. Degenerative disc disease. 3. The airways are unremarkable. 4. Soft tissues are unremarkable. 5. MRI imaging of the cervical spine is suggested for follow-up.
[2023-11-28] MEDS ORDERED: NALOXONE 0.4 MG/ML 1 ML VIAL IV PRN (04:56)
[2023-11-28] MEDS: IPRATROPIUM-ALBUTEROL 3 ML NEB INHALATION PRN (05:40)
[2023-11-28] MEDS: IPRATROPIUM-ALBUTEROL 3 ML NEB INHALATION SCH (08:35)
[2023-11-28] MEDS: ACETAMINOPHEN TAB 325 MG TAB PO PRN (09:44)
[2023-11-28] MEDS ORDERED: IPRATROPIUM-ALBUTEROL 3 ML NEB INHALATION PRN (11:31)
--- NOTE | 2023-11-28 12:20 | XR ---
EXAMINATION TYPE: XR chest 1V DATE OF EXAM: 11/28/2023 12:12 PM COMPARISON: CT chest 10/28/2020, chest radiograph 11/27/2023 TECHNIQUE: XR chest 1V Frontal view of the chest. CLINICAL INDICATION:Female, 73 years old with history of CAROLE; FINDINGS: Lungs/Pleura: There is no evidence of pleural effusion, focal consolidation, or pneumothorax. Linear scarring within the left midlung. Pulmonary vascularity: Unremarkable. Heart/mediastinum: Cardiomediastinal silhouette is enlarged. Atherosclerotic calcifications are seen in the aorta. Musculoskeletal: No acute osseous pathology. Other findings: Spinal stimulator leads identified. IMPRESSION: 1. No acute cardiopulmonary disease/process. 2. Cardiomegaly.
[2023-11-28] MEDS: METOPROLOL TARTRATE 50 MG TAB PO SCH (12:44)
[2023-11-28] MEDS: FUROSEMIDE 10 MG/ML 2 ML VIAL IV ONE (12:46)
[2023-11-28] MEDS: PANTOPRAZOLE 40 MG/10 ML VIAL IVP SCH (12:50)
[2023-11-28 13:02] LABS: Anisocytosis Moderate; HGB 7.5 gm/dL (11.4-16.0); Hypochromasia Marked; MCH 17.1 pg (25.0-35.0); MCHC 26.7 g/dL (31.0-37.0); MCV 64.2 fL (80.0-100.0); Mean Platelet Volume 7.3; Microcytosis Marked; Platelet Count 500 k/uL (150-450); Poikilocytosis Marked; RBC 4.36 m/uL (3.80-5.40); RDW 21.1 % (11.5-15.5)
[2023-11-28 14:11] LABS: Eosinophils # (M) 0.12 k/uL (0-0.7); Metamyelocytes % 2 %; Myelocytes # (M) 0.12 k/uL (0); Myelocytes % 1 %; Neutrophils % (M) 79 %; Nucleated Red Blood Cells 3 /100 WBC (0-0); Total Cells Counted 200
[2023-11-28 14:12] LABS: Lymphocytes # (M) 1.67 k/uL (1.0-4.8); Metamyelocytes # (M) 0.24 k/uL (0); WBC 11.9 k/uL (3.8-10.6)
[2023-11-28 14:13] LABS: Ovalocytes Present; Polychromasia Present
[2023-11-28 14:14] LABS: Poikilocytosis (M) Present; Stomatocytes Present
[2023-11-28] MEDS: PEG 3350 (236 GM/BTL) + LYTES 4,000 ML BOTTLE PO ONE (15:52)
--- NOTE | 2023-11-28 15:58 | P.CONS ---
History of Present Illness - Reason for Consult Consult date: 11/28/23 Anemia Requesting physician: Humberto Cade - Chief Complaint shortness of breath - History of Present Illness This is a pleasant 73-year-old female with a history of atrial fibrillation on Eliquis, dysphagia, COPD, coronary artery disease, GERD, fibromyalgia, hyperlip idemia, thyroid disorder, and DE who presented to the emergency department with complaints of shortness of breath. Patient was noted to have a low hemoglobin of 6.5 in the emergency department. She had microcytic anemia, iron studies ordered. She denies any blood in her stool, no black stool, no abdominal pain, nausea or vomiting. Patient has chronic dysphagia and he has undergone upper endoscopy as well as lower endoscopy in February 2021. Upper endoscopy with findings of normal-appearing esophagus with no evidence of esophagitis or esophageal stricture, mild antral gastritis. Colonoscopy revealed a transverse colon polyp and sigmoid colon polyp status post polypectomy and scattered si gmoid diverticulosis. Patient had a unit of blood with repeat hemoglobin today of 7.5. Stool occult blood negative. Review of Systems REVIEW OF SYSTEMS: CARDIOPULMONARY: No chest pain. Positive shortness of breath. Gastrointestinal: No abdominal pain. No nausea or vomiting. No hematemesis, coffee-ground emesis. No rectal bleeding, or melena. GENITOURINARY: No dysuria or hematuria. MUSCULOSKELETAL: Reports normal range of motion., Joint pain. SKIN: No rashes. No jaundice. ENDOCRINE: No chills, fevers. No excessive weight gain or loss. No polydipsia or polyuria. PSYCHIATRIC: Unremarkable. NEUROLOGY: No change in mental status. Denies dizziness, headache. ENT: Vision unremarkable. CONSTITUTIONAL: No recent weight loss. No fever, chills, night sweats. Past Medical History Past Medical History: Atrial Fibrillation, Asthma, Coronary Artery Disease (CAD), Cancer, Chest Pain / Angina, COPD, Fibromyalgia, GERD/Reflux, Hyperlipidemia, Myocardial Infarction ([place]), Osteoarthritis (OA), Pneumonia, Thyroid Disorder Additional Past Medical History / Comment(s): HX PVC'S, IBS, CHRONIC LOW BACK PAIN RADIATING INTO RODRICK THIGHS-BULGING CERVICAL DISC, RT BREAST CA, back stimulator implant, hx hiatal hernia, hx ulcer, small thyroid nodules, lymphedema rt arm (No IV BP rt arm), "feel a vibration in esophagus when cough or sneeze", oc hurts when food goes down,indigestion and heartburn, on steroids for "ear pressure"(states Dr Stout aware) Last Myocardial Infarction Date:: 1997 History of Any Multi-Drug Resistant Organisms: None Reported Past Surgical History: Breast Surgery, Section, Cholecystectomy, Heart Catheterization, Hernia Repair Additional Past Surgical History / Comment(s): garrick fundlaplasty, MASTECTOMY RT BREAST, MANIPULATION LT ARM, left ROATOR CUFF,STRABISMUS EYE SURGERY, CTR LT WRIST,LT GREAT TOE HAS T SHAPED INPLANT IN, D&C, Past Anesthesia/Blood Transfusion Reactions: Previous Problems w/ Anesthesia Additional Past Anesthesia/Blood Transfusion Reaction / Comm: patient and mom- hard time coming out of it Past Psychological History: No Psychological Hx Reported Smoking Status: Former smoker Past Alcohol Use History: None Reported Past Drug Use History: None Reported - Past Family History Mother Family Medical History: Deep Vein Thrombosis (DVT), Pulmonary Embolus Additional Family Medical History / Comment(s): . Medications and Allergies Home Medications Medication Instructions Recorded Confirmed Type Rosuvastatin Calcium [Crestor] 40 mg PO DAILY 09/12/14 11/28/23 History Ezetimibe [Zetia] 10 mg PO HS 07/02/17 11/28/23 History Apixaban [Eliquis] 5 mg PO BID #0 tab 02/16/19 11/28/23 Rx Pantoprazole Sodium [Protonix] 40 mg PO HS 02/13/21 11/28/23 History Vit C/E/Zn/Coppr/Lutein/Zeaxan 1 cap PO BID 02/13/21 11/28/23 History [Preservision Areds 2 Softgel] Acetaminophen/Diphenhydramine 1 tab PO HS 11/28/23 11/28/23 History [Tylenol PM 500-25mg] Aspirin EC [Ecotrin Low Dose] 81 mg PO DAILY 11/28/23 11/28/23 History Empagliflozin [Jardiance] 10 mg PO DAILY 11/28/23 11/28/23 History Ipratropium-Albuterol Nebulize 3 ml INHALATION RT-QID PRN 11/28/23 11/28/23 History [Duoneb 0.5 mg-3 mg/3 ml Soln] Metoprolol Tartrate [Lopressor] 75 mg PO BID 11/28/23 11/28/23 History Allergies Allergy/AdvReac Type Severity Reaction Status Date / Time adhesive tape Allergy Rash/Hives Verified 11/28/23 09:04 amoxicillin trihydrate Allergy Itching Verified 11/28/23 09:04 [From Augmentin] calcium Allergy Burning on Verified 11/28/23 09:04 inside itching on outside Cephalosporins Allergy Burning on Verified 11/28/23 09:04 inside -itching on outside clarithromycin [From Biaxin] Allergy burning on Verified 11/28/23 09:04 inside, itching on outside loratadine [From Claritin] Allergy Burning on Verified 11/28/23 09:04 inside- itching on outside NSAIDS (Non-Steroidal Allergy Burning on Verified 11/28/23 09:04 Anti-Inflamma inside-itching on outside potassium clavulanate Allergy Itching Verified 11/28/23 09:04 [From Augmentin] prednisone Allergy Burning on Verified 11/28/23 09:04 inside -itching on outside soy Allergy Burning on Verified 11/28/23 09:04 inside - itching on outside sulfamethoxazole Allergy Burning on Verified 11/28/23 09:04 [From Bactrim] inside -itching on outside tramadol HCl [From Ultram] Allergy Burning on Verified 11/28/23 09:04 inside -itching on outside trimethoprim [From Bactrim] Allergy Burning on Verified 11/28/23 09:04 inside -itching on outside steroids Allergy Burning on Uncoded 11/28/23 09:04 inside-itching on outside Physical Exam Vitals: Vital Signs Temp Pulse Resp BP Pulse Ox 11/28/23 14:00 98.7 F 95 24 138/76 94 L 11/28/23 12:39 103 H 22 129/78 95 11/28/23 11:05 98 11/28/23 09:47 101 H 20 133/72 96 11/28/23 08:52 98.6 F 99 22 145/69 97 11/28/23 08:36 93 L 11/28/23 07:26 98.2 F 104 H 22 132/63 93 L 11/28/23 06:41 98.2 F 99 16 128/60 11/28/23 06:21 98.0 F 98 16 128/60 11/28/23 06:12 98.1 F 99 20 134/76 94 L 11/28/23 05:55 87 11/28/23 05:41 85 11/28/23 04:00 101 H 14 154/90 94 L 11/28/23 03:00 118 H 16 150/95 94 L 11/28/23 02:00 93 12 163/80 94 L 11/28/23 01:47 105 H 22 163/80 94 L 11/27/23 23:58 99 16 156/88 96 11/27/23 22:07 97.8 F 119 H 24 112/60 90 L Intake and Output 11/27/23 11/28/23 11/28/23 22:59 06:59 14:59 Intake Total 0 310 Balance 0 310 Intake: Blood Product 0 310 Rc As-1 Unit 0 310 [id number] Other: Weight 81.647 kg General appearance: The patient is alert, oriented, appears in no acute distress. HET: Head is normocephalic and atraumatic. Conjunctiva pink. Sclera anicteric. Neck: Supple without lymphadenopathy. Trachea midline. Heart: Regular. Lungs: Equal expansion, normal respiratory effort. Abdomen: Soft, nontender, nondistended. Skin: No rashes. No jaundice. Extremities: Normal skin color and turgor. No pedal edema. Neurological: No focal deficits. Alert and oriented x3. Results CBC & Chem 7: 11/28/23 12:20 11/27/23 22:22 Labs: Abnormal Lab Results - Last 24 Hours (Table) 11/27/23 11/27/23 11/27/23 Range/Units 22:22 22:22 23:15 WBC 12.2 H (3.8-10.6) k/uL Hgb 6.5 L* (11.4-16.0) gm/dL Hct 25.2 L (34.0-46.0) % MCV 62.3 L (80.0-100.0) fL MCH 16.1 L (25.0-35.0) pg MCHC 25.8 L (31.0-37.0) g/dL RDW 20.3 H (11.5-15.5) % Plt Count 562 H (150-450) k/uL Neutrophils # 9.0 H (1.3-7.7) k/uL Chloride 108 H (98-107) mmol/L Glucose 101 H (74-99) mg/dL Crossmatch See Detail 11/28/23 Range/Units 12:20 WBC 12.3 H (3.8-10.6) k/uL Hgb 7.5 L (11.4-16.0) gm/dL Hct 28.0 L (34.0-46.0) % MCV 64.2 L (80.0-100.0) fL MCH 17.1 L (25.0-35.0) pg MCHC 26.7 L (31.0-37.0) g/dL RDW 21.1 H (11.5-15.5) % Plt Count 500 H (150-450) k/uL Neutrophils # (1.3-7.7) k/uL Chloride (98-107) mmol/L Glucose (74-99) mg/dL Crossmatch Assessment and Plan (1) Microcytic hypochromic anemia Narrative/Plan: 73-year-old female presenting with shortness of breath with findings of microcytic anemia likely consistent with iron deficiency anemia who is on Eliquis for atrial fibrillation. Patient denies any signs of GI bleed however need to consider microscopic blood loss over a period of time. Last EGD colonoscopy in 2020 without any concerns of GI bleed at that time. Patient has been on Eliquis for the last 6 to 7 years for atrial fibrillation. Need to consider possible GI source for anemia. Discussed with patient and family would recommend upper and and lower endoscopy, possible small bowel video capsule endoscopy. Current Visit: Yes Status: Acute Code(s): D50.9 - IRON DEFICIENCY ANEMIA, UNSPECIFIED SNOMED Code(s): 68397553 (2) Chronic atrial fibrillation Current Visit: Yes Status: Acute Code(s): I48.20 - CHRONIC ATRIAL FIBRILLATION, UNSPECIFIED SNOMED Code(s): 221994856 (3) COPD (chronic obstructive pulmonary disease) Current Visit: Yes Status: Acute Code(s): J44.9 - CHRONIC OBSTRUCTIVE PULMONARY DISEASE, UNSPECIFIED SNOMED Code(s): 47454455 Plan: 1. Continue symptomatic and supportive care 2. Daily CBC, transfuse for hemoglobin less than 7 3. Protonix 40 mg daily GI prophylaxis 4. Hold Eliquis 5. Clear liquid diet, n.p.o. after midnight 6. Bowel prep 7. Patient scheduled for EGD and colonoscopy, possible small bowel capsule video endoscopy Thank you for this consultation, we will continue to follow. Dr. Mara Stout I agree with the dictator's note, documented as a scribe by Yolie James.
--- NOTE | 2023-11-28 16:56 | P.CNPUL ---
History of Present Illness Consult date: 11/28/23 Reason for consult: dyspnea, cough, COPD, hypoxemia Chief complaint: shortness of breath History of present illness: 73-year-old female well-known to me from of ischemic disease with generalized weakness tiredness and fatigue she was found to be anemic she also have issues associated with dysphagia mostly to solid food she has history of significant lung disease and severe COPD and chronic scarring of the lung. She is she used to smoke heavily but quit several years ago she has a history of lung nodules the past has been monitor observed by me for many louis with Dr. Blancas on palpation requested to stop the scanning.her chest x-ray significant for 0.5 cm nodule in left lung base computed tomography scan of the chest is recommended, x-ray of the neck soft tissue DJD seenon specific questioning she denies any loss of consciousness have braces denies any dizziness lightheadedness denies any chest pain or radiation of pain no cough or sputum production mostly cough is dry and nonproductive, denies any hemoptysis hematemesis no bowel or bladder related problem stool color has been normal.her WBC count is 12.2, hemoglobin 6.5 MCV 62 doses history of microcytic anemia chemistry significant for the BUN/creatinine 15/0.6 E Restoril history fairly within normal limit, stool for occult blood is negative. Currently patient is on DuoNeb 4 times a day, and continuation of her medications and also on Protonix, patient is scheduled for endoscopy also being considered for a computed tomography scan of the chest Review of Systems All systems: negative Past Medical History Past Medical History: Atrial Fibrillation, Asthma, Coronary Artery Disease (CAD), Cancer, Chest Pain / Angina, COPD, Fibromyalgia, GERD/Reflux, Hyperlipid emia, Myocardial Infarction ([place]), Osteoarthritis (OA), Pneumonia, Thyroid Disorder Additional Past Medical History / Comment(s): HX PVC'S, IBS, CHRONIC LOW BACK PAIN RADIATING INTO RODRICK THIGHS-BULGING CERVICAL DISC, RT BREAST CA, back stimulator implant, hx hiatal hernia, hx ulcer, small thyroid nodules, lymphedema rt arm (No IV BP rt arm), "feel a vibration in esophagus when cough or sneeze", oc hurts when food goes down,indigestion and heartburn, on steroids for "ear pressure"(states Dr Stout aware) Last Myocardial Infarction Date:: 1997 History of Any Multi-Drug Resistant Organisms: None Reported Past Surgical History: Breast Surgery, Section, Cholecystectomy, Heart Catheterization, Hernia Repair Additional Past Surgical History / Comment(s): garrick fundlaplasty, MASTECTOMY RT BREAST, MANIPULATION LT ARM, left ROATOR CUFF,STRABISMUS EYE SURGERY, CTR LT WRIST,LT GREAT TOE HAS T SHAPED INPLANT IN, D&C, Past Anesthesia/Blood Transfusion Reactions: Previous Problems w/ Anesthesia Additional Past Anesthesia/Blood Transfusion Reaction / Comment(s): patient and mom-hard time coming out of it Past Psychological History: No Psychological Hx Reported Smoking Status: Former smoker Past Alcohol Use History: None Reported Past Drug Use History: None Reported - Past Family History Mother Family Medical History: Deep Vein Thrombosis (DVT), Pulmonary Embolus Additional Family Medical History / Comment(s): . Medications and Allergies Home Medications Medication Instructions Recorded Confirmed Type Rosuvastatin Calcium [Crestor] 40 mg PO DAILY 09/12/14 11/28/23 History Ezetimibe [Zetia] 10 mg PO HS 07/02/17 11/28/23 History Apixaban [Eliquis] 5 mg PO BID #0 tab 02/16/19 11/28/23 Rx Pantoprazole Sodium [Protonix] 40 mg PO HS 02/13/21 11/28/23 History Vit C/E/Zn/Coppr/Lutein/Zeaxan 1 cap PO BID 02/13/21 11/28/23 History [Preservision Areds 2 Softgel] Acetaminophen/Diphenhydramine 1 tab PO HS 11/28/23 11/28/23 History [Tylenol PM 500-25mg] Aspirin EC [Ecotrin Low Dose] 81 mg PO DAILY 11/28/23 11/28/23 History Empagliflozin [Jardiance] 10 mg PO DAILY 11/28/23 11/28/23 History Ipratropium-Albuterol Nebulize 3 ml INHALATION RT-QID PRN 11/28/23 11/28/23 History [Duoneb 0.5 mg-3 mg/3 ml Soln] Metoprolol Tartrate [Lopressor] 75 mg PO BID 11/28/23 11/28/23 History Allergies Allergy/AdvReac Type Severity Reaction Status Date / Time adhesive tape Allergy Rash/Hives Verified 11/28/23 09:04 amoxicillin trihydrate Allergy Itching Verified 11/28/23 09:04 [From Augmentin] calcium Allergy Burning on Verified 11/28/23 09:04 inside itching on outside Cephalosporins Allergy Burning on Verified 11/28/23 09:04 inside -itching on outside clarithromycin [From Biaxin] Allergy burning on Verified 11/28/23 09:04 inside, itching on outside loratadine [From Claritin] Allergy Burning on Verified 11/28/23 09:04 inside- itching on outside NSAIDS (Non-Steroidal Allergy Burning on Verified 11/28/23 09:04 Anti-Inflamma inside-itching on outside potassium clavulanate Allergy Itching Verified 11/28/23 09:04 [From Augmentin] prednisone Allergy Burning on Verified 11/28/23 09:04 inside -itching on outside soy Allergy Burning on Verified 11/28/23 09:04 inside - itching on outside sulfamethoxazole Allergy Burning on Verified 11/28/23 09:04 [From Bactrim] inside -itching on outside tramadol HCl [From Ultram] Allergy Burning on Verified 11/28/23 09:04 inside -itching on outside trimethoprim [From Bactrim] Allergy Burning on Verified 11/28/23 09:04 inside -itching on outside steroids Allergy Burning on Uncoded 11/28/23 09:04 inside-itching on outside Physical Exam Vitals: Vital Signs Temp Pulse Resp BP Pulse Ox 11/28/23 16:22 92 11/28/23 16:10 85 11/28/23 15:13 115 H 18 137/59 95 11/28/23 14:00 98.7 F 95 24 138/76 94 L 11/28/23 12:39 103 H 22 129/78 95 11/28/23 11:05 98 11/28/23 09:47 101 H 20 133/72 96 11/28/23 08:52 98.6 F 99 22 145/69 97 11/28/23 08:36 93 L 11/28/23 07:26 98.2 F 104 H 22 132/63 93 L 11/28/23 06:41 98.2 F 99 16 128/60 11/28/23 06:21 98.0 F 98 16 128/60 11/28/23 06:12 98.1 F 99 20 134/76 94 L 11/28/23 05:55 87 11/28/23 05:41 85 11/28/23 04:00 101 H 14 154/90 94 L 11/28/23 03:00 118 H 16 150/95 94 L 11/28/23 02:00 93 12 163/80 94 L 11/28/23 01:47 105 H 22 163/80 94 L 11/27/23 23:58 99 16 156/88 96 11/27/23 22:07 97.8 F 119 H 24 112/60 90 L Intake and Output 11/28/23 11/28/23 11/28/23 06:59 14:59 22:59 Intake Total 0 310 Balance 0 310 Intake: Blood Product 0 310 Rc As-1 Unit 0 310 [id number] - Constitutional General appearance: average body habitus, cooperative, disheveled - EENT Eyes: EOMI, PERRLA Ears: bilateral: normal - Neck Neck: normal ROM Carotids: bilateral: upstroke normal Thyroid: bilateral: normal size - Respiratory Respiratory: bilateral: diminished - Cardiovascular Rhythm: regular Heart sounds: normal: S1, S2 - Integumentary Integumentary: decreased turgor - Neurologic Neurologic: CNII-XII intact - Musculoskeletal Musculoskeletal: gait normal, generalized weakness, strength equal bilaterally - Psychiatric Psychiatric: A&O x's 3, appropriate affect, intact judgment & insight Results - Laboratory Findings CBC and BMP: 11/28/23 12:20 11/27/23 22:22 PT/INR, D-dimer PT 12.0 sec (10.0-12.5) 11/27/23 22:22 INR 1.1 (<1.2) 11/27/23 22:22 Abnormal lab findings: Abnormal Labs 11/27/23 11/27/23 11/27/23 22:22 22:22 23:15 WBC 12.2 H Hgb 6.5 L* Hct 25.2 L MCV 62.3 L MCH 16.1 L MCHC 25.8 L RDW 20.3 H Plt Count 562 H Neutrophils # 9.0 H Neutrophils # (Manual) Metamyelocytes # (Man) Myelocytes # (Manual) Nucleated RBCs Chloride 108 H Glucose 101 H Crossmatch See Detail 11/28/23 12:20 WBC 11.9 H Hgb 7.5 L Hct 28.0 L MCV 64.2 L MCH 17.1 L MCHC 26.7 L RDW 21.1 H Plt Count 500 H Neutrophils # Neutrophils # (Manual) 9.40 H Metamyelocytes # (Man) 0.24 H Myelocytes # (Manual) 0.12 H Nucleated RBCs 3 H Chloride Glucose Crossmatch - Diagnostic Findings Chest x-ray: report reviewed, image reviewed (finding as noted above) Assessment and Plan Assessment: left lower lobe nodule highly suspicious of neoplasm not seen before Microcytic anemia COPD not in exacerbation Generalized weakness and fatigue dysphagia for solid foods Generalized anxiety disorder Plan: Will arrange the computed tomography scan of the chest without contrast, patient is agreeable to it Continue bronchodilators Ongoing symptoms of dysphagia with microcytic anemia appropriate to do upper endoscopy Patient needs to be bilateral home oxygen at time of discharge
[2023-11-28 20:28] LABS: % Iron Saturation 5.28 (12.00-45.00); Iron 29 UG/DL (50-170); Total Iron Binding Capacity 549 UG/DL (228-460)
--- NOTE | 2023-11-28 21:04 | CT ---
EXAMINATION TYPE: CT chest wo con DATE OF EXAM: 11/28/2023 COMPARISON: 10/28/2020 HISTORY: 73-year-old female Left lower lung nodule. TECHNIQUE: Contiguous axial scanning of the chest without IV contrast. Coronal/sagittal reconstructio ns performed. CT DLP: 405mGycm. Automatic exposure control utilized for a dose reduction. FINDINGS: The heart is upper limits of normal in size without pericardial effusion. Three-vessel coronary arter y calcifications are present as well as moderate aortic valve calcifications. Mild atherosclerotic arch calcifications with aberrant direct takeoff of the left vertebral artery di rectly from the aortic arch. There are calcified hilar and mediastinal lymph nodes compatible with prior granulomatous disease. Worsening aeration now with complete collapse of the right middle lobe. Additional chronic scarring i nferior lingula 4 mm posterior left lower lobe pulmonary nodule, axial image 40. Mild emphysematous change. Otherwise , no consolidation or pleural effusion. Visualized upper abdomen shows moderate atherosclerotic calcifications of the abdominal aorta. Cholec ystectomy clips. There is moderate stool burden. Bones: Accentuated upper to midthoracic process. IMPRESSION: 1. Three-vessel coronary artery calcifications. 2. Evidence of prior granulomatous disease with multiple calcified mediastinal and hilar lymph nodes. 3. COPD with mild emphysema. 4. Worsening aeration now with complete collapse of the right middle lobe. Additional chronic scarrin g inferior lingula. 5. A 4 mm left lower lobe pulmonary nodule. 6 month follow-up CT chest to reassess.
[2023-11-28 22:07] LABS: NT-Pro-B-Type Natriuretic Pept 693 pg/mL (0-450)
[2023-11-28] MEDS: EZETIMIBE 10 MG TAB PO SCH (22:13)
--- NOTE | 2023-11-28 23:18 | P.HPIM ---
History of Present Illness H&P Date: 11/28/23 Chief Complaint: Lightheadedness and weakness Patient is a 73-year-old female with a past medical history of chronic atrial fibrillation on anticoagulation with Eliquis, coronary artery disease, COPD and prior history of smoking, fibromyalgia, hyperlipidemia, history of CT, hypothyroidism, chronic low back pain and history of back stimulator implant, history of esophageal dysmotility and difficulty swallowing for a long time and prior history of EGDs, chronic CHF with systolic dysfunction as a correct 40 to 45% presents to ER with complaints of generalized weakness, lightheadedness and shortness of breath. Patient was having difficulty swallowing due to dysmotility. Patient has been having long-term problems with the esophagus. She is on anticoagulation with Eliquis. Patient also has chronic left lower extremity swelling more than right. Patient otherwise denies any chest pain. No cough or sputum production. No fever no chills. Chest x-ray showed new 0.5 cm nodule near the left lung base. CT imaging of the chest without contrast is advised. X-ray of the soft tissue neck showed minimal grade 1 retrolisthesis C3-C4 vertebrae. Degenerative disc disease. Airways are unremarkable. Soft tissues are unremarkable. EKG showed sinus tachycardia with occasional supraventricular premature complexes. Repeat x-ray this morning showed no acute cardiopulmonary process. Cardiomegaly. Laboratory data showed WBC 12.2 hemoglobin 6.5 and platelets 562, sodium 143 potassium 4.3 chloride 108 bicarb is 29 BUN 15 and creatinine 0.63 and blood sugar is 101. Liver enzymes are not elevated. Troponin x 1 negative FOBT negative Review of Systems Constitutional: Patient denies any fever or chills . Patient does have generalized weakness and fatigue.. Abdomen: Patient denied nausea vomiting and diarrhea and abdominal pain. Cardiovascular: Patient denies any chest pain. Positive for short of breath no palpitations. No worsening leg swelling Respiratory: patient denied any cough or sputum production. Positive shortness of breath Neurologic: Patient denied any numbness or tingling. no headache. Musculoskeletal: Patient denies any complaints of joint swelling or deformity. Skin: Negative Psychiatric: Negative Endocrine: No heat or cold intolerance. No recent weight gain. Genitourinary: No dysuria or hematuria. All other 14 point ROS negative except the above Past Medical History Past Medical History: Atrial Fibrillation, Asthma, Coronary Artery Disease (CAD), Cancer, Chest Pain / Angina, COPD, Fibromyalgia, GERD/Reflux, Hyperlipidemia, Myocardial Infarction (CT), Osteoarthritis (OA), Pneumonia, Thyroid Disorder Additional Past Medical History / Comment(s): HX PVC'S, IBS, CHRONIC LOW BACK PAIN RADIATING INTO RODRICK THIGHS-BULGING CERVICAL DISC, RT BREAST CA, back stimulator implant, hx hiatal hernia, hx ulcer, small thyroid nodules, lymphedema rt arm (No IV BP rt arm), "feel a vibration in esophagus when cough or sneeze", oc hurts when food goes down,indigestion and heartburn, on steroids for "ear pressure"(states Dr Stout aware) Last Myocardial Infarction Date:: 1997 History of Any Multi-Drug Resistant Organisms: None Reported Past Surgical History: Breast Surgery, Section, Cholecystectomy, Heart Catheterization, Hernia Repair Additional Past Surgical History / Comment(s): garrick fundlaplasty, MASTECTOMY RT BREAST, MANIPULATION LT ARM, left ROATOR CUFF,STRABISMUS EYE SURGERY, CTR LT WRIST,LT GREAT TOE HAS T SHAPED INPLANT IN, D&C, Past Anesthesia/Blood Transfusion Reactions: Previous Problems w/ Anesthesia Additional Past Anesthesia/Blood Transfusion Reaction / Comment(s): patient and mom-hard time coming out of it Past Psychological History: No Psychological Hx Reported Smoking Status: Former smoker Past Alcohol Use History: None Reported Past Drug Use History: None Reported - Past Family History Mother Family Medical History: Deep Vein Thrombosis (DVT), Pulmonary Embolus Additional Family Medical History / Comment(s): . Medications and Allergies Home Medications Medication Instructions Recorded Confirmed Type Rosuvastatin Calcium [Crestor] 40 mg PO DAILY 09/12/14 11/28/23 History Ezetimibe [Zetia] 10 mg PO HS 07/02/17 11/28/23 History Apixaban [Eliquis] 5 mg PO BID #0 tab 02/16/19 11/28/23 Rx Pantoprazole Sodium [Protonix] 40 mg PO HS 02/13/21 11/28/23 History Vit C/E/Zn/Coppr/Lutein/Zeaxan 1 cap PO BID 02/13/21 11/28/23 History [Preservision Areds 2 Softgel] Acetaminophen/Diphenhydramine 1 tab PO HS 11/28/23 11/28/23 History [Tylenol PM 500-25mg] Aspirin EC [Ecotrin Low Dose] 81 mg PO DAILY 11/28/23 11/28/23 History Empagliflozin [Jardiance] 10 mg PO DAILY 11/28/23 11/28/23 History Ipratropium-Albuterol Nebulize 3 ml INHALATION RT-QID PRN 11/28/23 11/28/23 History [Duoneb 0.5 mg-3 mg/3 ml Soln] Metoprolol Tartrate [Lopressor] 75 mg PO BID 11/28/23 11/28/23 History Allergies Allergy/AdvReac Type Severity Reaction Status Date / Time adhesive tape Allergy Rash/Hives Verified 11/28/23 09:04 amoxicillin trihydrate Allergy Itching Verified 11/28/23 09:04 [From Augmentin] calcium Allergy Burning on Verified 11/28/23 09:04 inside itching on outside Cephalosporins Allergy Burning on Verified 11/28/23 09:04 inside -itching on outside clarithromycin [From Biaxin] Allergy burning on Verified 11/28/23 09:04 inside, itching on outside loratadine [From Claritin] Allergy Burning on Verified 11/28/23 09:04 inside- itching on outside NSAIDS (Non-Steroidal Allergy Burning on Verified 11/28/23 09:04 Anti-Inflamma inside-itching on outside potassium clavulanate Allergy Itching Verified 11/28/23 09:04 [From Augmentin] prednisone Allergy Burning on Verified 11/28/23 09:04 inside -itching on outside soy Allergy Burning on Verified 11/28/23 09:04 inside - itching on outside sulfamethoxazole Allergy Burning on Verified 11/28/23 09:04 [From Bactrim] inside -itching on outside tramadol HCl [From Ultram] Allergy Burning on Verified 11/28/23 09:04 inside -itching on outside trimethoprim [From Bactrim] Allergy Burning on Verified 11/28/23 09:04 inside -itching on outside steroids Allergy Burning on Uncoded 11/28/23 09:04 inside-itching on outside Physical Exam Vitals: Vital Signs Temp Pulse Resp BP Pulse Ox 11/28/23 11:05 98 11/28/23 09:47 101 H 20 133/72 96 11/28/23 08:52 98.6 F 99 22 145/69 97 11/28/23 08:36 93 L 07/15/24 07:26 98.2 F 104 H 22 132/63 93 L 11/28/23 06:41 98.2 F 99 16 128/60 11/28/23 06:21 98.0 F 98 16 128/60 11/28/23 06:12 98.1 F 99 20 134/76 94 L 11/28/23 05:55 87 11/28/23 05:41 85 11/28/23 04:00 101 H 14 154/90 94 L 11/28/23 03:00 118 H 16 150/95 94 L 11/28/23 02:00 93 12 163/80 94 L 11/28/23 01:47 105 H 22 163/80 94 L 11/27/23 23:58 99 16 156/88 96 11/27/23 22:07 97.8 F 119 H 24 112/60 90 L Intake and Output 11/27/23 11/28/23 11/28/23 22:59 06:59 14:59 Intake Total 0 310 Balance 0 310 Intake: Blood Product 0 310 Rc As-1 Unit 0 310 [id number] Other: Weight 81.647 kg PHYSICAL EXAMINATION: Patient is lying in the bed comfortably, no acute distress, awake alert and oriented.. HEENT: Normocephalic. Neck is supple. Pupils reactive. Nostrils clear. Oral cavity is moist. Neck reveals no JVD, carotid bruits, or thyromegaly. CHEST EXAMINATION: Trachea is central. Symmetrical expansion. Bibasilar diminished sounds otherwise lung moffett clear to auscultation and percussion. CARDIAC: Normal S1, S2 with no gallops. No murmurs, irregular rhythm. ABDOMEN: Soft. Bowel sounds normal. No organomegaly. No abdominal bruits. Extremities: reveal no edema. No clubbing or cyanosis Neurologically awake, alert, oriented x3 with well-coordinated movements. No focal deficits noted Skin: No rash or skin lesions. Psychiatric: Coperative. Nonsuicidal Musculoskeletal: No joint swelling or deformity. Normal range of motion. Results CBC & Chem 7: 11/28/23 12:20 11/27/23 22:22 Labs: Abnormal Lab Results - Last 24 Hours (Table) 11/27/23 11/27/23 11/27/23 Range/Units 22:22 22:22 23:15 WBC 12.2 H (3.8-10.6) k/uL Hgb 6.5 L* (11.4-16.0) gm/dL Hct 25.2 L (34.0-46.0) % MCV 62.3 L (80.0-100.0) fL MCH 16.1 L (25.0-35.0) pg MCHC 25.8 L (31.0-37.0) g/dL RDW 20.3 H (11.5-15.5) % Plt Count 562 H (150-450) k/uL Neutrophils # 9.0 H (1.3-7.7) k/uL Chloride 108 H (98-107) mmol/L Glucose 101 H (74-99) mg/dL Crossmatch See Detail Thrombosis Risk Factor Assmnt - DVT/VTE Prophylaxis DVT/VTE Prophylaxis: Mechanical Prophylaxis ordered Assessment and Plan Assessment: Symptomatic anemia Possible chronic blood loss anemia Microcytic iron deficiency anemia History of present dysmotility and chronic issues with swallowing Chronic atrial fibrillation on anticoagulation with Eliquis Chronic CHF with systolic dysfunction ejection fraction 40 to 45%. Left upper lobe 0.5 cm pulmonary nodule COPD not on home oxygen Coronary artery disease with no prior history of PCI Hypothyroidism Chronic low back pain and history of back stimulator placement History of breast cancer status post right mastectomy Prior history of smoking GI prophylaxis with PPI Plan: Patient will be continued on PPI and monitor H&H. Received 1 unit of PRBC on admission. Eliquis is on hold and gastroenterology was consulted for possible EGD.. Patient was given a dose of IV Lasix with improvement respiratory status. Continue with home medications and breathing treatments. Pulmonary consult due to 0.5 cm pulmonary nodule left upper lobe. Continue to follow closely. Discussed with her and son at bedside in detail. Prognosis is guarded. Time with Patient: Greater than 30
[2023-11-29 07:16] LABS: Anisocytosis Moderate; Basophils % (A) 0 %; Eosinophils # (A) 0.1 k/uL (0-0.7); Eosinophils % (A) 1 %; HCT 26.8 % (34.0-46.0); HGB 7.1 gm/dL (11.4-16.0); Hypochromasia Marked; Lymphocytes # (A) 1.3 k/uL (1.0-4.8); Lymphocytes % (A) 13 %; MCH 17.2 pg (25.0-35.0); MCHC 26.3 g/dL (31.0-37.0); MCV 65.5 fL (80.0-100.0); Mean Platelet Volume 9.5; Microcytosis Marked; Monocytes # (A) 0.7 k/uL (0-1.0); Monocytes % (A) 7 %; Neutrophils # (A) 7.8 k/uL (1.3-7.7); Neutrophils % (A) 77 %; Platelet Count 523 k/uL (150-450); Poikilocytosis Moderate; RBC 4.09 m/uL (3.80-5.40); RDW 21.2 % (11.5-15.5); WBC 10.1 k/uL (3.8-10.6)
[2023-11-29 07:27] LABS: African American GFR (CKD) >90 (>60 ml/min/1.73 sqM); Anion Gap 5 mmol/L; Blood Urea Nitrogen 16 mg/dL (7-17); Calcium 8.3 mg/dL (8.4-10.2); Carbon Dioxide 33 mmol/L (22-30); Chloride 104 mmol/L (98-107); Glucose 83 mg/dL (74-99); Non-African American GFR(CKD) 88 (>60 ml/min/1.73 sqM); Sodium 142 mmol/L (137-145)
[2023-11-29] MEDS: ATORVASTATIN 80 MG TAB PO SCH (09:04)
--- NOTE | 2023-11-29 11:11 | P.PN ---
Subjective Progress Note Date: 11/29/23 Principal diagnosis: Anemia This is a pleasant 73-year-old female with a history of atrial fibrillation on Eliquis, dysphagia, COPD, coronary artery disease, GERD, fibromyalgia, h yperlipidemia, thyroid disorder, and LA who presented to the emergency department with complaints of shortness of breath. Patient was noted to have a low hemoglobin of 6.5 in the emergency department. She had microcytic anemia, iron studies ordered. She denies any blood in her stool, no black stool, no abdominal pain, nausea or vomiting. Patient has chronic dysphagia and he has undergone upper endoscopy as well as lower endoscopy in February 2021. Upper endoscopy with findings of normal-appearing esophagus with no evidence of esophagitis or esophageal stricture, mild antral gastritis. Colonoscopy revealed a transverse colon polyp and sigmoid colon polyp status post polypectomy and scattered sigmoid diverticulosis. Patient had a unit of blood with repeat hemoglobin today of 7.5. Stool occult blood negative. 11/29/2023 Patient seen and examined today as a follow-up. She was scheduled for EGD and colonoscopy today however did not complete her prep. Patient denies any blood or black stool. Nursing reports stool is still brown. Hemoglobin today 7.1, she is status post 1 unit PRBC transfusion. She denies any abdominal pain, nausea or vomiting. Objective - Vital Signs Vital signs: Vital Signs Temp 99.6 F 11/29/23 07:00 Pulse 94 11/29/23 08:18 Resp 13 11/29/23 02:00 BP 129/78 11/29/23 07:00 Pulse Ox 98 11/29/23 08:06 FiO2 Intake & Output 11/28/23 11/29/23 11/29/23 18:59 06:59 18:59 Intake Total 310 Balance 310 Weight 81.647 kg Intake: Blood Product 310 Rc As-1 Unit 310 [id number] Other: # Voids 1 # Bowel Movements 2 - Exam General appearance: The patient is alert, oriented, appears in no acute distress. HET: Head is normocephalic and atraumatic. Conjunctiva pink. Sclera anicteric. Neck: Supple without lymphadenopathy. Abdomen: Soft, nontender, nondistended with bowel sounds. No guarding or rigidity. Extremities: Normal skin color and turgor. No pedal edema Skin: No rashes, no jaundice Neurological: No focal deficits. Alert and oriented. - Labs CBC & Chem 7: 11/29/23 07:04 11/29/23 07:04 Labs: Abnormal Lab Results - Last 24 Hours (Table) 11/27/23 11/28/23 11/28/23 Range/Units 23:15 12:20 12:20 WBC 11.9 H (3.8-10.6) k/uL Hgb 7.5 L (11.4-16.0) gm/dL Hct 28.0 L (34.0-46.0) % MCV 64.2 L (80.0-100.0) fL MCH 17.1 L (25.0-35.0) pg MCHC 26.7 L (31.0-37.0) g/dL RDW 21.1 H (11.5-15.5) % Plt Count 500 H (150-450) k/uL Neutrophils # (1.3-7.7) k/uL Neutrophils # (Manual) 9.40 H (1.3-7.7) k/uL Metamyelocytes # (Man) 0.24 H (0) k/uL Myelocytes # (Manual) 0.12 H (0) k/uL Nucleated RBCs 3 H (0-0) /100 WBC Carbon Dioxide (22-30) mmol/L Calcium (8.4-10.2) mg/dL Iron 29 L (50-170) UG/DL TIBC 549 H (228-460) UG/DL % Saturation 5.28 L (12.00-45.00) Transferrin 392.0 H (204.0-354.0) mg/dL Ferritin (10.0-291.0) ng/mL NT-Pro-B Natriuret Pep 693 H (0-450) pg/mL Crossmatch See Detail 11/28/23 11/29/23 11/29/23 Range/Units 12:20 07:04 07:04 WBC (3.8-10.6) k/uL Hgb 7.1 L (11.4-16.0) gm/dL Hct 26.8 L (34.0-46.0) % MCV 65.5 L (80.0-100.0) fL MCH 17.2 L (25.0-35.0) pg MCHC 26.3 L (31.0-37.0) g/dL RDW 21.2 H (11.5-15.5) % Plt Count 523 H (150-450) k/uL Neutrophils # 7.8 H (1.3-7.7) k/uL Neutrophils # (Manual) (1.3-7.7) k/uL Metamyelocytes # (Man) (0) k/uL Myelocytes # (Manual) (0) k/uL Nucleated RBCs (0-0) /100 WBC Carbon Dioxide 33 H (22-30) mmol/L Calcium 8.3 L (8.4-10.2) mg/dL Iron (50-170) UG/DL TIBC (228-460) UG/DL % Saturation (12.00-45.00) Transferrin (204.0-354.0) mg/dL Ferritin 2.3 L (10.0-291.0) ng/mL NT-Pro-B Natriuret Pep (0-450) pg/mL Crossmatch Assessment and Plan (1) Microcytic hypochromic anemia Narrative/Plan: 73-year-old female presenting with shortness of breath with findings of microcytic anemia likely consistent with iron deficiency anemia who is on Eliquis for atrial fibrillation. Patient denies any signs of GI bleed however need to consider microscopic blood loss over a period of time. Last EGD colonoscopy in 2020 without any concerns of GI bleed at that time. Patient has been on Eliquis for the last 6 to 7 years for atrial fibrillation. Need to consider possible GI source for anemia. Discussed with patient and family would recommend upper and and lower endoscopy, possible small bowel video capsule endoscopy. Current Visit: Yes Status: Acute Code(s): D50.9 - IRON DEFICIENCY ANEMIA, UNSPECIFIED SNOMED Code(s): 58734833 (2) Chronic atrial fibrillation Current Visit: Yes Status: Acute Code(s): I48.20 - CHRONIC ATRIAL FIBRILLATION, UNSPECIFIED SNOMED Code(s): 774577762 (3) COPD (chronic obstructive pulmonary disease) Current Visit: Yes Status: Acute Code(s): J44.9 - CHRONIC OBSTRUCTIVE PULMONARY DISEASE, UNSPECIFIED SNOMED Code(s): 31650731 Plan: 1. Continue symptomatic and supportive care 2. Daily CBC, transfuse for hemoglobin less than 7 3. Protonix 40 mg daily GI prophylaxis 4. Hold Eliquis 5. Clear liquid diet, n.p.o. after midnight 6. Continue bowel prep throughout the day 7. Patient re-scheduled for EGD and colonoscopy, possible small bowel capsule video endoscopy Thank you for this consultation, we will continue to follow. Dr. Mara Stout I agree with the dictator's note, documented as a scribe by Yolie James.
[2023-11-29] MEDS: BUDESONIDE 0.5 MG/2 ML NEBU INHALATION SCH (15:16)
[2023-11-29] MEDS: DAPAGLIFLOZIN PROPANEDIOL 5 MG TABLET PO SCH (16:25)
--- NOTE | 2023-11-29 16:30 | P.PN ---
Subjective Progress Note Date: 11/29/23 Principal diagnosis: right middle lobe pneumonia 4 mm smallleft lower lobe nodule Microcytic anemia COPD not in exacerbation Generalized weakness and fatigue calcified hilar and mediastinal lymphadenopathy compared with prior medicines dysphagia for solid foods Generalized anxiety disorder 11/29/2023, patient seen eval examined sitting upright in the bed intermittent cough is present denies any chest pain, patient is pale-appearing, sinus present bedside, patient is process of getting preparation for colonoscopy and endoscopy tomorrowthe patient remains on bronchodilator and inhaled corticosteroids, has been on Protonix as well along with continuation of home medicationslabs from today reviewed white cell count is 10.1, hemoglobin hematocrit is 7.1/26-related on a 523 sodium 142 potassium 4 BUN/creatinine is the 16/0.64, iron studies reviews total iron is 29 TIBC is 549 saturation is 5.28 ferritin level was 2.3 low BNP is 693 73-year-old female well-known to me from of ischemic disease with generalized weakness tiredness and fatigue she was found to be anemic she also have issues associated with dysphagia mostly to solid food she has history of significant lung disease and severe COPD and chronic scarring of the lung. She is she used to smoke heavily but quit several years ago she has a history of lung nodules the past has been monitor observed by me for many louis with Dr. Blancas on palpation requested to stop the scanning.her chest x-ray significant for 0.5 cm nodule in left lung base computed tomography scan of the chest is recommended, x-ray of the neck soft tissue DJD seenon specific questioning she denies any loss of consciousness have braces denies any dizziness lightheadedness denies any chest pain or radiation of pain no cough or sputum production mostly cough is dry and nonproductive, denies any hemoptysis hematemesis no bowel or bladder related problem stool color has been normal.her WBC count is 12.2, hemoglobin 6.5 MCV 62 doses history of microcytic anemia chemistry significant for the BUN/creatinine 15/0.6 E Restoril history fairly within normal limit, stool for occult blood is negative. Currently patient is on DuoNeb 4 times a day, and continuation of her medications and also on Protonix, patient is scheduled for endoscopy also being considered for a computed tomography scan of the chest Objective - Vital Signs Vital signs: Vital Signs Temp 91 F L 11/29/23 14:42 Pulse 96 11/29/23 15:26 Resp 19 11/29/23 14:42 BP 107/65 11/29/23 14:42 Pulse Ox 91 L 11/29/23 14:42 FiO2 Intake & Output 11/28/23 11/29/23 11/29/23 18:59 06:59 18:59 Intake Total 310 0 Balance 310 0 Weight 81.647 kg Intake: Oral 0 Blood Product 310 Rc As-1 Unit 310 [id number] Other: # Voids 1 # Bowel Movements 2 4 - Exam - Constitutional General appearance: average body habitus, cooperative, disheveled - EENT Eyes: EOMI, PERRLA Ears: bilateral: normal - Neck Neck: normal ROM Carotids: bilateral: upstroke normal Thyroid: bilateral: normal size - Respiratory Respiratory: bilateral: diminished - Cardiovascular Rhythm: regular Heart sounds: normal: S1, S2 - Integumentary Integumentary: decreased turgor - Neurologic Neurologic: CNII-XII intact - Musculoskeletal Musculoskeletal: gait normal, generalized weakness, strength equal bilaterally - Psychiatric Psychiatric: A&O x's 3, appropriate affect, intact judgment & insight - Labs CBC & Chem 7: 11/29/23 07:04 11/29/23 07:04 Labs: Abnormal Lab Results - Last 24 Hours (Table) 11/28/23 11/28/23 11/28/23 Range/Units 12:20 12:20 12:20 Hgb (11.4-16.0) gm/dL Hct (34.0-46.0) % MCV (80.0-100.0) fL MCH (25.0-35.0) pg MCHC (31.0-37.0) g/dL RDW (11.5-15.5) % Plt Count (150-450) k/uL Neutrophils # (1.3-7.7) k/uL Carbon Dioxide (22-30) mmol/L Calcium (8.4-10.2) mg/dL Iron 29 L (50-170) UG/DL TIBC 549 H (228-460) UG/DL % Saturation 5.28 L (12.00-45.00) Transferrin 392.0 H (204.0-354.0) mg/dL Ferritin 2.3 L (10.0-291.0) ng/mL NT-Pro-B Natriuret Pep 693 H (0-450) pg/mL RBC Folate 1,131 H (280 - 791) ng/mL 11/29/23 11/29/23 Range/Units 07:04 07:04 Hgb 7.1 L (11.4-16.0) gm/dL Hct 26.8 L (34.0-46.0) % MCV 65.5 L (80.0-100.0) fL MCH 17.2 L (25.0-35.0) pg MCHC 26.3 L (31.0-37.0) g/dL RDW 21.2 H (11.5-15.5) % Plt Count 523 H (150-450) k/uL Neutrophils # 7.8 H (1.3-7.7) k/uL Carbon Dioxide 33 H (22-30) mmol/L Calcium 8.3 L (8.4-10.2) mg/dL Iron (50-170) UG/DL TIBC (228-460) UG/DL % Saturation (12.00-45.00) Transferrin (204.0-354.0) mg/dL Ferritin (10.0-291.0) ng/mL NT-Pro-B Natriuret Pep (0-450) pg/mL RBC Folate (280 - 791) ng/mL Assessment and Plan Assessment: right middle lobe pneumonia 4 mm small left lower lobe nodule Microcytic anemia COPD not in exacerbation Generalized weakness and fatigue calcified hilar and mediastinal lymphadenopathy compared with prior medicines dysphagia for solid foods Generalized anxiety disorder Plan: reviewed computed tomography scan of the chest without contrast, findings discussed and reviewed with the patient, for left lower lobe nodule which is 4 mm in size follow-up computed tomography scan on outpatient basis, Broad-spectrum antibiotics patient prefers IV Levaquin we'll start that Continue bronchodilators Ongoing symptoms of dysphagia with microcytic anemia appropriate to do upper endoscopy and lower endoscopy Patient needs to be supplemental home oxygen we will evaluate at time of d ischarge Time with Patient: Greater than 30
[2023-11-29] MEDS: LEVOFLOXACIN 500MG-D5W PMX 500 MG in DEXTROSE/WATER 1 100ML.BAG IVPB SCH (18:42)
[2023-11-29] MEDS: FERROUS SULFATE 325 MG TAB PO SCH (23:12)
--- NOTE | 2023-11-30 01:37 | P.PN ---
Subjective Progress Note Date: 11/29/23 Patient is a 73-year-old female with a past medical history of chronic atrial fibrillation on anticoagulation with Eliquis, coronary artery disease, COPD and prior history of smoking, fibromyalgia, hyperlipidemia, history of CT, hypothyroidism, chronic low back pain and history of back stimulator implant, history of esophageal dysmotility and difficulty swallowing for a long time and prior history of EGDs, chronic CHF with systolic dysfunction as a correct 40 to 45% presents to ER with complaints of generalized weakness, lightheadedness and shortness of breath. Patient was having difficulty swallowing due to dysmotility. Patient has been having long-term problems with the esophagus. She is on anticoagulation with Eliquis. Patient also has chronic left lower extremity swelling more than right. Patient otherwise denies any chest pain. No cough or sputum production. No fever no chills. Chest x-ray showed new 0.5 cm nodule near the left lung base. CT imaging of the chest without contrast is advised. X-ray of the soft tissue neck showed minimal grade 1 retrolisthesis C3-C4 vertebrae. Degenerative disc disease. Airways are unremarkable. Soft tissues are unremarkable. EKG showed sinus tachycardia with occasional supraventricular premature complexes. Repeat x-ray this morning showed no acute cardiopulmonary process. Cardiomegaly. Laboratory data showed WBC 12.2 hemoglobin 6.5 and platelets 562, sodium 143 potassium 4.3 chloride 108 bicarb is 29 BUN 15 and creatinine 0.63 and blood sugar is 101. Liver enzymes are not elevated. Troponin x 1 negative FOBT negative 11/29/2023 Patient is currently lying in the bed. Awake alert and oriented x 3. Otherwise patient is very anxious about her medical condition. No complaints of chest pain or shortness of breath. Patient could not complete GoLytely. EGD and colonoscopy has been rescheduled. General surgery and pulmonary is on board. Laboratory data showed WBC 10.0 hemoglobin 7.1 and platelets 523. Patient is iron deficient. CT chest showed three-vessel coronary artery calcifications. Evidence of prior granulomatous disease. Multiple calcified mediastinal and hilar lymph nodes. COPD. Mild emphysema. Worsening aeration now with complete collapse of the right middle lobe. 4 mm left lower lobe pulmonary nodule. 6-month CT chest to reassess. Current medications reviewed. Objective - Vital Signs Vital signs: Vital Signs Temp 99.6 F 11/29/23 07:00 Pulse 96 11/29/23 11:35 Resp 13 11/29/23 02:00 BP 129/78 11/29/23 07:00 Pulse Ox 95 11/29/23 10:30 FiO2 Intake & Output 11/28/23 11/29/23 11/29/23 18:59 06:59 18:59 Intake Total 310 0 Balance 310 0 Weight 81.647 kg Intake: Oral 0 Blood Product 310 Rc As-1 Unit 310 [id number] Other: # Voids 1 # Bowel Movements 2 - Exam PHYSICAL EXAMINATION: Patient is lying in the bed, no acute distress, awake alert and oriented.. HEENT: Normocephalic. Neck is supple. Pupils reactive. Nostrils clear. Oral cavity is moist. Neck reveals no JVD, carotid bruits, or thyromegaly. CHEST EXAMINATION: Trachea is central. Symmetrical expansion. Bilateral expiratory wheezing. Nonlabored breathing. No crackles. CARDIAC: Normal S1, S2 with no gallops. No murmurs ABDOMEN: Soft. Bowel sounds normal. No organomegaly. No abdominal bruits. Extremities: reveal no edema. No clubbing or cyanosis Neurologically awake, alert, oriented x3 with well-coordinated movements. No focal deficits noted Skin: No rash or skin lesions. Psychiatric: Coperative. Nonsuicidal but anxious. Musculoskeletal: No joint swelling or deformity. Normal range of motion. - Labs CBC & Chem 7: 11/29/23 07:04 11/29/23 07:04 Labs: Abnormal Lab Results - Last 24 Hours (Table) 11/28/23 11/28/23 11/28/23 Range/Units 12:20 12:20 12:20 Hgb (11.4-16.0) gm/dL Hct (34.0-46.0) % MCV (80.0-100.0) fL MCH (25.0-35.0) pg MCHC (31.0-37.0) g/dL RDW (11.5-15.5) % Plt Count (150-450) k/uL Neutrophils # (1.3-7.7) k/uL Carbon Dioxide (22-30) mmol/L Calcium (8.4-10.2) mg/dL Iron 29 L (50-170) UG/DL TIBC 549 H (228-460) UG/DL % Saturation 5.28 L (12.00-45.00) Transferrin 392.0 H (204.0-354.0) mg/dL Ferritin 2.3 L (10.0-291.0) ng/mL NT-Pro-B Natriuret Pep 693 H (0-450) pg/mL RBC Folate 1,131 H (280 - 791) ng/mL 11/29/23 11/29/23 Range/Units 07:04 07:04 Hgb 7.1 L (11.4-16.0) gm/dL Hct 26.8 L (34.0-46.0) % MCV 65.5 L (80.0-100.0) fL MCH 17.2 L (25.0-35.0) pg MCHC 26.3 L (31.0-37.0) g/dL RDW 21.2 H (11.5-15.5) % Plt Count 523 H (150-450) k/uL Neutrophils # 7.8 H (1.3-7.7) k/uL Carbon Dioxide 33 H (22-30) mmol/L Calcium 8.3 L (8.4-10.2) mg/dL Iron (50-170) UG/DL TIBC (228-460) UG/DL % Saturation (12.00-45.00) Transferrin (204.0-354.0) mg/dL Ferritin (10.0-291.0) ng/mL NT-Pro-B Natriuret Pep (0-450) pg/mL RBC Folate (280 - 791) ng/mL Assessment and Plan Assessment: Symptomatic anemia Possible chronic blood loss anemia Microcytic iron deficiency anemia Possible right middle lobe pneumonia. History of present dysmotility and chronic issues with swallowing Chronic atrial fibrillation on anticoagulation with Eliquis Chronic CHF with systolic dysfunction ejection fraction 40 to 45%. Left upper lobe 0.5 cm pulmonary nodule COPD not on home oxygen Coronary artery disease with no prior history of PCI Hypothyroidism Chronic low back pain and history of back stimulator placement History of breast cancer status post right mastectomy Prior history of smoking GI prophylaxis with PPI Plan: Patient will be continued on PPI and monitor H&H. Received 1 unit of PRBC on admission. Hemoglobin 7.1 today. Eliquis is on hold and gastroenterology was consulted for possible EGD.. Patient was given a dose of IV Lasix with improvement respiratory status. Continue with home medications and breathing treatments and Pulmicort was added. Pulmonary consult due to 0.5 cm pulmonary nodule left upper lobe. CT chest report as above. Patient was started on Levaquin for possible pneumonia. Pulmonary and GI is on board. EGD colonoscopy postponed to tomorrow due to incomplete bowel prep. Continue to follow closely. Prognosis is guarded. Time with Patient: Greater than 30
[2023-11-30 09:54] LABS: Anisocytosis Moderate; HCT 26.5 % (34.0-46.0); Hypochromasia Marked; MCH 17.3 pg (25.0-35.0); MCHC 25.7 g/dL (31.0-37.0); MCV 67.4 fL (80.0-100.0); Microcytosis Marked; Platelet Count 515 k/uL (150-450); Poikilocytosis Moderate; RBC 3.93 m/uL (3.80-5.40); RDW 21.7 % (11.5-15.5)
[2023-11-30 10:10] LABS: HGB 6.8 gm/dL (11.4-16.0)
[2023-11-30 10:14] LABS: African American GFR (CKD) >90 (>60 ml/min/1.73 sqM); Anion Gap 5 mmol/L; Blood Urea Nitrogen 14 mg/dL (7-17); Calcium 8.4 mg/dL (8.4-10.2); Carbon Dioxide 33 mmol/L (22-30); Chloride 101 mmol/L (98-107); Glucose 77 mg/dL (74-99); Non-African American GFR(CKD) >90 (>60 ml/min/1.73 sqM); Potassium 4.1 mmol/L (3.5-5.1); Sodium 139 mmol/L (137-145)
[2023-11-30 11:43] LABS: Basophils # (M) 0.09 k/uL (0-0.2); Lymphocytes # (M) 0.93 k/uL (1.0-4.8); Metamyelocytes # (M) 0.09 k/uL (0); Metamyelocytes % 1 %; Monocytes # (M) 0.74 k/uL (0-1.0); Neutrophils # (M) 7.63 k/uL (1.3-7.7); Neutrophils % (M) 82 %; Nucleated Red Blood Cells 1 /100 WBC (0-0); Total Cells Counted 200; WBC 9.3 k/uL (3.8-10.6)
[2023-11-30 11:44] LABS: Polychromasia Present
[2023-11-30] MEDS ORDERED: PROPOFOL 10 MG/ML 20 ML VIAL IV ONE (14:02)
[2023-11-30] MEDS ORDERED: LIDOCAINE 1% INJ 10MG/ML (20 ML MDV) ONE (14:02)
[2023-11-30] MEDS: SODIUM CHLORIDE 0.9% 500 ML 500 ML IV ONE (14:07)
--- NOTE | 2023-11-30 14:29 | P.PCN ---
Date of Procedure: 11/30/23 Procedure(s) Performed: Brief history: Patient is a pleasant scheduled for an elective upper endoscopy as well as colonoscopy as a part of evaluation of severe symptomatic anemia and hemoglobin of 6.5 g/dL. She received units of PRBC transfusion. She has been on Eliquis for A-fib which is on hold for 2 days. Procedure performed: Esophagogastroduodenoscopy with argon plasma coagulation Colonoscopy with snare polypectomy. Preoperative diagnosis: Severe symptomatic anemia with a hemoglobin of 6.5 g/dL Anesthesia: MAC Procedure: After informed consent was obtained from the patient was brought into the endoscopy unit and IV sedation was administered by anesthesia under continuous monitoring. Initially upper endoscopy was done. The Olympus GF 160 video endoscope was inserted inserted into the mouth and esophagus intubated without any difficulty and was gradually advanced into the stomach and duodenum and carefully examined. The bulb and second part of the duodenum had scattered nonbleeding angioectasia which were coagulated using argon plasma. The scope was then withdrawn into the stomach adequately insufflated with air and upon careful examination the antrum had 2 small nonbleeding angiectasia that were cauterized using the argon plasma coagulation. Rest of the body, cardia and fundus appeared normal. The scope was then withdrawn into the esophagus. The GE junction was located at 40 cm to the incisors. It appeared regular with no erythema erosions or ulcerations. Rest of the esophagus appeared normal. Patient tolerated the procedure well. At this time the patient continued to remain sedation. Initial digital rectal examination was normal. Olympus CF 160 video colonoscope was then inserted into the rectum and gradually advanced to the cecum without any difficulty. Careful examination was performed as the scope was gradually being withdrawn. The prep was excellent. The cecum, ascending colon, transverse colon, appeared normal. The descending colon there was a 1.5 cm polyp that was removed by snare polypectomy. Rest of the descending colon, sigmoid colon and rectum appeared normal. Scattered sigmoid diverticulosis. Retroflexion was performed in the rectum and no lesions were noted. Patient tolerated the procedure well. Impression: 1. Upper endoscopy revealed nonbleeding angioectasia in the antrum as well as in the duodenum status post argon plasma coagulation as described above upper 2. Colonoscopy revealed 1.5 cm descending colon polyp status post snare polypectomy and scattered sigmoid diverticulosis Recommendations: Findings of this examination were discussed with the patient as well as family. She was advised to start on iron supplements. Advance to regular diet. Resume Eliquis tomorrow.
--- NOTE | 2023-11-30 23:33 | P.PN ---
Subjective Patient is a 73-year-old female with a past medical history of chronic atrial fibrillation on anticoagulation with Eliquis, coronary artery disease, COPD and prior history of smoking, fibromyalgia, hyperlipidemia, history of [place], hypothyroidism, chronic low back pain and history of back stimulator implant, history of esophageal dysmotility and difficulty swallowing for a long time and prior history of EGDs, chronic CHF with systolic dysfunction as a correct 40 to 45% presents to ER with complaints of generalized weakness, lightheadedness and shortness of breath. Patient was having difficulty swallowing due to dysmotility. Patient has been having long-term problems with the esophagus. She is on anticoagulation with Eliquis. Patient also has chronic left lower extremity swelling more than right. Patient otherwise denies any chest pain. No cough or sputum production. No fever no chills. Chest x-ray showed new 0.5 cm nodule near the left lung base. CT imaging of the chest without contrast is advised. X-ray of the soft tissue neck showed minimal grade 1 retrolisthesis C3-C4 vertebrae. Degenerative disc disease. Airways are unremarkable. Soft tissues are unremarkable. EKG showed sinus tachycardia with occasional supraventricular premature complexes. Repeat x-ray this morning showed no acute cardiopulmonary process. Cardiom egaly. Laboratory data showed WBC 12.2 hemoglobin 6.5 and platelets 562, sodium 143 potassium 4.3 chloride 108 bicarb is 29 BUN 15 and creatinine 0.63 and blood sugar is 101. Liver enzymes are not elevated. Troponin x 1 negative FOBT negative 11/29/2023 Patient is currently lying in the bed. Awake alert and oriented x 3. Otherwise patient is very anxious about her medical condition. No complaints of chest pain or shortness of breath. Patient could not complete GoLytely. EGD and colonoscopy has been rescheduled. General surgery and pulmonary is on board. Laboratory data showed WBC 10.0 hemoglobin 7.1 and platelets 523. Patient is iron deficient. CT chest showed three-vessel coronary artery calcifications. Evidence of prior granulomatous disease. Multiple calcified mediastinal and hilar lymph nodes. COPD. Mild emphysema. Worsening aeration now with complete collapse of the r ight middle lobe. 4 mm left lower lobe pulmonary nodule. 6-month CT chest to reassess. 11/29 Patient looks pale and tired Patient hemoglobin 6.8, was 7.1 yesterday she is pending blood transfusion, she requires IV line placement as well Today she went EGD showing gastric antral angiectasia s/p plasma Argun plasma coagulation while colonoscopy showing polyp s/p polypectomy Aspirin and Eliquis on hold and can be resumed tomorrow per GI team Continue monitor hemoglobin Iron pills Also patient diagnosed with right middle lobe pneumonia with consolidation and currently is being treated with antibiotic Levaquin Pulmonary following also for left lower lobe pulmonary nodule that needs outpatient follow-up Family at bedside and all their questions were answered Discussed with staff Review of systems CONSTITUTIONAL: No fever, no malaise, no fatigue. HEENT: No recent visual problems or hearing problems. Denied any sore thro GENITOURINARY: Denies any burning micturition, frequency, or urgency. MUSCULOSKELETAL/RHEUMATOLOGICAL: Denies any joint pain, swelling, or any muscle pain. ENDOCRINE: Denies any polyuria or polydipsia. Active Medications Generic Name Dose Route Start Last Admin Trade Name Freq PRN Reason Stop Dose Admin Acetaminophen 650 mg 11/28/23 07:49 11/30/23 20:01 Acetaminophen Tab 325 Mg Tab PO 650 mg Q6HR PRN Administration Fever and/ or Pain Albuterol/Ipratropium 3 ml 11/28/23 05:35 11/29/23 03:44 Ipratropium-Albuterol 3 Ml Neb INHALATION 3 ml RT-Q2H PRN Administration Shortness Of Breath Or Wheezing Albuterol/Ipratropium 3 ml 11/28/23 08:00 11/30/23 21:19 Ipratropium-Albuterol 3 Ml Neb INHALATION 3 ml RT-QID LLOYD Administration Atorvastatin Calcium 80 mg 11/29/23 09:00 11/30/23 08:34 Atorvastatin 80 Mg Tab PO 80 mg DAILY LLOYD Administration Budesonide 0.5 mg 11/29/23 14:21 11/30/23 21:18 Budesonide 0.5 Mg/2 Ml Nebu INHALATION 0.5 mg RT-BID LLOYD Administration Dapagliflozin 5 mg 11/29/23 14:30 11/30/23 14:27 Dapagliflozin Propanediol 5 Mg Tablet PO Not Given DAILY LLOYD Ezetimibe 10 mg 11/28/23 21:00 11/30/23 20:01 Ezetimibe 10 Mg Tab PO 10 mg HS LLOYD Administration Ferrous Sulfate 325 mg 11/29/23 22:30 11/30/23 18:51 Ferrous Sulfate 325 Mg Tab PO 325 mg BID-W/MEALS LLOYD Administration Levofloxacin 500 mg/ IV 100 mls @ 100 mls/hr 11/29/23 17:00 11/30/23 18:51 Solution IVPB 100 mls/hr Q24H LLODY Administration Protocol Metoprolol Tartrate 75 mg 11/28/23 11:45 11/30/23 20:01 Metoprolol Tartrate 50 Mg Tab PO 75 mg BID LLOYD Administration Naloxone HCl 0.2 mg 11/28/23 04:56 Naloxone 0.4 Mg/Ml 1 Ml Vial IV Q2M PRN Opioid Reversal Pantoprazole Sodium 40 mg 11/28/23 11:45 11/30/23 08:34 Pantoprazole 40 Mg/10 Ml Vial IVP 40 mg DAILY LLOYD Administration Objective - Vital Signs Vital signs: Vital Signs Temp 98.7 F 11/30/23 07:00 Pulse 90 11/30/23 12:00 Resp 20 11/30/23 07:00 BP 134/71 11/30/23 07:00 Pulse Ox 98 11/30/23 07:00 FiO2 Intake & Output 11/29/23 11/30/23 11/30/23 18:59 06:59 18:59 Intake Total 0 236 Balance 0 236 Intake: Oral 0 236 Other: # Voids 2 # Bowel Movements 4 - Exam -GENERAL: The patient is alert and oriented x3, not in any acute distress. Well developed, well nourished. Tired and pale HEENT: Pupils are round and equally reacting to light. EOMI. No scleral icterus. No conjunctival pallor. Normocephalic, atraumatic. No pharyngeal erythema. No thyromegaly. CARDIOVASCULAR: S1 and S2 present. No murmurs, rubs, or gallops. -PULMONARY: Chest is clear to auscultation, no wheezing , no crackles. Mild tachypnea with crepitation on the right side ABDOMEN: Soft, nontender, nondistended, normoactive bowel sounds. No palpable organomegaly. MUSCULOSKELETAL: No joint swelling or deformity. EXTREMITIES: No cyanosis, clubbing, or pedal edema. NEUROLOGICAL: Gross neurological examination did not reveal any focal deficits. SKIN: No rashes. no petechiae. 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 History of present dysmotility and chronic issues with swallowing Chronic atrial fibrillation on anticoagulation with Eliquis Chronic CHF with systolic dysfunction ejection fraction 40 to 45%. Left upper lobe 0.5 cm pulmonary nodule COPD not on home oxygen Coronary artery disease with no prior history of PCI Hypothyroidism Chronic low back pain and history of back stimulator placement History of breast cancer status post right mastectomy Prior history of smoking GI prophylaxis with PPI Plan: Continue with Levaquin Follow-up culture results Occult blood in the stool negative EGD and colonoscopy results noted, follow-up biopsy result Resume Eliquis per GI team Pulmonary and GI consult on the case Labs and medication were reviewed.. Continue same treatment. Continue with symptomatic treatment. Resume home medication. Monitor labs and vitals. DVT and GI prophylaxis. Further recommendations as per clinical course of the patient DVT prophylaxis:, Was on Eliquis at home which can be resumed per GI team GI Prophylaxis: ppi PT/OT: Pending Prognosis is guarded
[2023-12-01 09:11] LABS: Anisocytosis Moderate; HCT 28.8 % (34.0-46.0); HGB 7.6 gm/dL (11.4-16.0); Hypochromasia Marked; MCH 18.2 pg (25.0-35.0); MCHC 26.5 g/dL (31.0-37.0); MCV 68.8 fL (80.0-100.0); Mean Platelet Volume 9.3; Microcytosis Marked; Platelet Count 506 k/uL (150-450); Poikilocytosis Marked; RBC 4.18 m/uL (3.80-5.40); RDW 23.1 % (11.5-15.5); WBC 11.6 k/uL (3.8-10.6)
--- NOTE | 2023-12-01 10:31 | XR ---
EXAMINATION TYPE: XR chest 1V portable DATE OF EXAM: 12/01/2023 10:24 AM COMPARISON: Chest radiograph 11/28/2023, CT chest 11/28/2023 TECHNIQUE: XR chest 1V portable Portable AP radiograph of the chest. CLINICAL INDICATION:Female, 73 years old with history of pneumonia; FINDINGS: Lungs/Pleura: There is no evidence of pleural effusion, focal consolidation, or pneumothorax. Linear scarring within the left midlung. Pulmonary vascularity: Unremarkable. Heart/mediastinum: Cardiomediastinal silhouette is enlarged. Atherosclerotic calcifications are seen in the aorta. Musculoskeletal: No acute osseous pathology. Other findings: Spinal stimulator leads identified. IMPRESSION: 1. No acute cardiopulmonary disease/process. 2. Cardiomegaly.
--- NOTE | 2023-12-01 10:39 | P.PN ---
Subjective Progress Note Date: 12/01/23 Principal diagnosis: right middle lobe pneumonia 4 mm smallleft lower lobe nodule Microcytic anemia COPD not in exacerbation Generalized weakness and fatigue calcified hilar and mediastinal lymphadenopathy compared with prior medicines dysphagia for solid foods Generalized anxiety disorder 12/01/2023, patient seen eval examined during the rounds labs reviewed medications reviewed care plan discussed with the staff at length. 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 This morning on evaluation patient pleasantly confused different than baseline arousable but goes back to sleep.she is afebrile hemodynamic status stable FiO2 however is up to 5 L nasal cannula oxygen saturation is mid 90s.currently she is on bronchodilators and and a slice inhaled steroids are hypoglycemic agents along with antihypertensive. It appears that she has been receiving benzodiazepine and narcoticslabs were hemoglobin 7.6 from 6.8 post transfusion of one unit of packed RBC chemistry not done today however BUN/creatinine 14/155 CO2 was 33 yesterday pro-calcitonin is 0.13. Patient remains on IV Levaquin for pneumonia 11/29/2023, patient seen eval examined sitting upright in the bed intermittent cough is present denies any chest pain, patient is pale-appearing, sinus present bedside, patient is process of getting preparation for colonoscopy and endoscopy tomorrowthe patient remains on bronchodilator and inhaled corticosteroids, has been on Protonix as well along with continuation of home medicationslabs from today reviewed white cell count is 10.1, hemoglobin hematocrit is 7.1/26-related on a 523 sodium 142 potassium 4 BUN/creatinine is the 16/0.64, iron studies re views total iron is 29 TIBC is 549 saturation is 5.28 ferritin level was 2.3 low BNP is 693 73-year-old female well-known to me from of ischemic disease with generalized weakness tiredness and fatigue she was found to be anemic she also have issues associated with dysphagia mostly to solid food she has history of significant lung disease and severe COPD and chronic scarring of the lung. She is she used to smoke heavily but quit several years ago she has a history of lung nodules the past has been monitor observed by me for many louis with Dr. Blancas on palpation requested to stop the scanning.her chest x-ray significant for 0.5 cm nodule in left lung base computed tomography scan of the chest is recommended, x-ray of the neck soft tissue DJD seenon specific questioning she denies any l oss of consciousness have braces denies any dizziness lightheadedness denies any chest pain or radiation of pain no cough or sputum production mostly cough is dry and nonproductive, denies any hemoptysis hematemesis no bowel or bladder related problem stool color has been normal.her WBC count is 12.2, hemoglobin 6.5 MCV 62 doses history of microcytic anemia chemistry significant for the BUN/creatinine 15/0.6 E Restoril history fairly within normal limit, stool for occult blood is negative. Currently patient is on DuoNeb 4 times a day, and continuation of her medications and also on Protonix, patient is scheduled for endoscopy also being considered for a computed tomography scan of the chest Objective - Vital Signs Vital signs: Vital Signs Temp 98.6 F 12/01/23 10:06 Pulse 92 12/01/23 10:06 Resp 16 12/01/23 10:06 BP 116/63 12/01/23 10:06 Pulse Ox 96 12/01/23 10:06 FiO2 Intake & Output 11/30/23 12/01/23 12/01/23 18:59 06:59 18:59 Intake Total 200 790 Balance 200 790 Intake: IV 200 Oral 480 Blood Product 310 Rc As-1 Unit 310 [id number] Other: # Voids 0 2 # Bowel Movements 0 0 - Exam - Constitutional General appearance: average body habitus, somnolent but arousable - EENT Eyes: EOMI, PERRLA Ears: bilateral: normal - Neck Neck: normal ROM Carotids: bilateral: upstroke normal Thyroid: bilateral: normal size - Respiratory Respiratory: bilateral: diminished - Cardiovascular Rhythm: regular Heart sounds: normal: S1, S2 - Integumentary Integumentary: decreased turgor - Neurologic Neurologic: alert awake oriented 1 only, very somnolent goes back right to sleep on physical and verbal stimuli - Musculoskeletal Musculoskeletal: gait normal, generalized weakness, strength equal bilaterally - Psychiatric Psychiatric: alert awake oriented 1 only, very somnolent goes back right to sleep on physical and verbal stimuli - Labs CBC & Chem 7: 12/01/23 08:08 11/30/23 09:23 Labs: Abnormal Lab Results - Last 24 Hours (Table) 11/27/23 11/30/23 11/30/23 Range/Units 23:15 09:23 09:23 WBC (3.8-10.6) k/uL Hgb (11.4-16.0) gm/dL Hct (34.0-46.0) % MCV (80.0-100.0) fL MCH (25.0-35.0) pg MCHC (31.0-37.0) g/dL RDW (11.5-15.5) % Plt Count (150-450) k/uL Lymphocytes # (Manual) 0.93 L (1.0-4.8) k/uL Metamyelocytes # (Man) 0.09 H (0) k/uL Nucleated RBCs 1 H (0-0) /100 WBC Procalcitonin 0.13 H (0.02-0.09) ng/mL Crossmatch See Detail 12/01/23 Range/Units 08:08 WBC 11.6 H (3.8-10.6) k/uL Hgb 7.6 L (11.4-16.0) gm/dL Hct 28.8 L (34.0-46.0) % MCV 68.8 L (80.0-100.0) fL MCH 18.2 L (25.0-35.0) pg MCHC 26.5 L (31.0-37.0) g/dL RDW 23.1 H (11.5-15.5) % Plt Count 506 H (150-450) k/uL Lymphocytes # (Manual) (1.0-4.8) k/uL Metamyelocytes # (Man) (0) k/uL Nucleated RBCs (0-0) /100 WBC Procalcitonin (0.02-0.09) ng/mL Crossmatch Assessment and Plan Assessment: altered mental status likely suspect hypercapnic hypoxic respiratory failure and elevated CO2, will obtain arterial blood gas as well as chest x-rayalong with computed tomography scan of the had noncontrast right middle lobe pneumonia 4 mm small left lower lobe nodule Microcytic anemia COPD not in exacerbation Generalized weakness and fatigue calcified hilar and mediastinal lymphadenopathy compared with prior medicines dysphagia for solid foods Generalized anxiety disorder Plan: computed tomography scan of the head, ABG, chest x-ray pending further recommendation as per finding above consult neuro will defer to primary service reviewed computed tomography scan of the chest without contrast, findings discussed and reviewed with the present at bedsidefor left lower lobe nodule which is 4 mm in size follow-up computed tomography scan on outpatient basis, Broad-spectrum antibiotics patient prefers IV Levaquin we'll start that Continue bronchodilators Ongoing symptoms of dysphagia with microcytic anemia appropriate to do upper endoscopy and lower endoscopy Patient needs to be supplemental home oxygen we will evaluate at time of discharge Time with Patient: Greater than 30
--- NOTE | 2023-12-01 11:22 | CDI ---
Documentation Clarification Form Date: 12/01/2023 10:31:17 AM From: Kusum Garcia RN CCDS Phone: [phone] Admit Date: 11/30/2023 12:38:00 PM Patient Name: Valeria Atkins Visit Number: [id number] Discharge Date: ATTENTION: The Clinical Documentation Specialists (CDI) and [facility] Coding Staff appreciate your assistance in clarifying documentation. Please respond to the clarification below the line at the bottom and electronically sign. The CDI & [facility] Coding staff will review the response and follow-up if needed. Please note: Queries are made part of the Legal Health Record. If you have any questions, please contact the author of this message via ITS. Doctor Sheet Your patient is receiving the following: Oxygen, 11/26. Please clarify what condition/diagnosis is being treated. History/Risk Factors: 73 year old female presents to the ED with lightheadedness, weakness and shortness of breath. Medical history: CHF, COPD, smoking history and atrial fibrillation. 11/27, HP Clinical indicators: VSS 11/26: B/P 134/71; HR 102; RR 20; SpO2 98.7 F Oral; SpO2 98% ra VSS 11/29 15:00 B/P 117/71; HR 100; RR 18, Temp 96.8F Oral SpO2 89% ra 11/29: 15:21 SpO2 86% 3L nc 11/29: 15:52 SpO2 92% 3L nc 11/30: 02:00 SpO2 96% 4L nc 11/30: 07:00 SpO2 98% 5L nc CT, 11/27: Evidence of prior granulomatous disease with multiple calcified mediastinal and hilar lymph nodes. COPD with mild emphysema. Worsening aeration now with complete collapse of the right middle lobe. Additional chronic scarring inferior lingua. A 4mm left lower lobe pulmonary nodule 11/26, ED Note: Patient placed on oxygen for hypoxia of 90% 11/28 Pulmonary Note: Patient needs to be supplemental home oxygen we will evaluate at time of discharge.11/28 Leofloxacin Q24H IVPB 11/28, Pulmonary Note, Respiratory exam: Bilateral diminished. Treatment: 11/27 Duoenb Inhalation Scheduled QID and PRN, 11/28 Pulmicort Inhalation Scheduled BID; What diagnosis are you treating with [treatment]? [ ] Acute hypoxic respiratory failure [ ] No additional diagnosis [ x ] Other, please specify Acute hypoxic hypercapnic respiratory failure [ ] Unable to determine (Template Last Reviewed: June 2020) KEVIND
[2023-12-01 12:21] LABS: ABG Oxygen Saturation 96.8 % (94-97); ABG PH 7.21 (7.35-7.45); ABG PO2 91 mmHg (83-108); Allen Test Performed? Yes
[2023-12-01 12:25] LABS: ABG PCO2 >98 mmHg (35-45)
--- NOTE | 2023-12-01 12:29 | CT ---
EXAMINATION TYPE: CT brain wo con CT DLP: 1150.5 mGycm, Automated exposure control for dose reduction was used. DATE OF EXAM: 12/01/2023 12:15 PM COMPARISON: None. CLINICAL INDICATION:Female, 73 years old with history of altered mental status, AMS TECHNIQUE: Brain: Multiple axial CT images of the brain were obtained without IV contrast. . Coronal and sagitta l reformats reviewed. FINDINGS: Motion degraded examination. Brain: Extra-axial spaces: No abnormal extra-axial fluid collections. Ventricular system: Within normal limits Cerebral parenchyma: No acute intraparenchymal hemorrhage or mass effect. Periventricular hypodense w lynn matter changes demonstrated. Cerebellum: Unremarkable. Mass effect: No evidence of midline shift. Intracranial vasculature: Atherosclerotic calcifications of the intracranial vessels. Soft tissues: Normal. Calvarium/osseous structures: No depressed skull fracture. Paranasal sinuses and mastoid air cells: Clear Visualized orbits: Orbital contents are intact. IMPRESSION: 1. Motion degraded examination without gross evidence for acute intracranial process. 2. Nonspecific periventricular white matter changes which may represent small vessel ischemic diseas e.
[2023-12-01] MEDS: ACETAMINOPHEN IV (For NPO) 1,000 MG in EMPTY BAG 1 BAG IVPB STA (14:20)
--- NOTE | 2023-12-01 15:19 | P.PN ---
Subjective Progress Note Date: 12/01/23 Principal diagnosis: Anemia This is a pleasant 73-year-old female with a history of atrial fibrillation on Eliquis, dysphagia, COPD, coronary artery disease, GERD, fibromyalgia, h yperlipidemia, thyroid disorder, and IA who presented to the emergency department with complaints of shortness of breath. Patient was noted to have a low hemoglobin of 6.5 in the emergency department. She had microcytic anemia, iron studies ordered. She denies any blood in her stool, no black stool, no abdominal pain, nausea or vomiting. Patient has chronic dysphagia and he has undergone upper endoscopy as well as lower endoscopy in February 2021. Upper endoscopy with findings of normal-appearing esophagus with no evidence of esophagitis or esophageal stricture, mild antral gastritis. Colonoscopy revealed a transverse colon polyp and sigmoid colon polyp status post polypectomy and scattered sigmoid diverticulosis. Patient had a unit of blood with repeat hemoglobin today of 7.5. Stool occult blood negative. 11/29/2023 Patient seen and examined today as a follow-up. She was scheduled for EGD and colonoscopy today however did not complete her prep. Patient denies any blood or black stool. Nursing reports stool is still brown. Hemoglobin today 7.1, she is status post 1 unit PRBC transfusion. She denies any abdominal pain, nausea or vomiting. 12/01/2023 Patient is seen and examined today as a follow-up. This morning she is very lethargic just opens her eyes but does not respond much. She does deny any abdominal pain. She did have a low-grade fever this morning of 99.8. Yesterday she underwent upper and lower endoscopy. Upper endoscopy revealed nonbleeding angioectasia in the antrum as well as in the duodenum status post argon plasma coagulation and colonoscopy revealed descending colon polyp status post polypectomy and scattered sigmoid diverticulosis. No reported bleeding. Repeat hemoglobin 7.6 Objective - Vital Signs Vital signs: Vital Signs Temp 99.7 F H 12/01/23 07:00 Pulse 99 12/01/23 07:00 Resp 16 12/01/23 07:00 BP 130/73 12/01/23 07:00 Pulse Ox 98 12/01/23 07:00 FiO2 Intake & Output 11/30/23 12/01/23 12/01/23 18:59 06:59 18:59 Intake Total 200 790 Balance 200 790 Intake: IV 200 Oral 480 Blood Product 310 Rc As-1 Unit 310 [id number] Other: # Voids 0 2 # Bowel Movements 0 0 - Exam General appearance: The patient is lethargic, but alert, appears in no acute distress. HET: Head is normocephalic and atraumatic. Conjunctiva pink. Sclera anicteric. Neck: Supple without lymphadenopathy. Abdomen: Soft, nontender, nondistended with bowel sounds. No guarding or rigidity. Extremities: Normal skin color and turgor. No pedal edema Skin: No rashes, no jaundice Neurological: No focal deficits. Lethargic, but alert. - Labs CBC & Chem 7: 12/01/23 08:08 11/30/23 09:23 Labs: Abnormal Lab Results - Last 24 Hours (Table) 11/27/23 11/30/23 11/30/23 Range/Units 23:15 09:23 09:23 WBC (3.8-10.6) k/uL Hgb 6.8 L* (11.4-16.0) gm/dL Hct 26.5 L (34.0-46.0) % MCV 67.4 L (80.0-100.0) fL MCH 17.3 L (25.0-35.0) pg MCHC 25.7 L (31.0-37.0) g/dL RDW 21.7 H (11.5-15.5) % Plt Count 515 H (150-450) k/uL Lymphocytes # (Manual) 0.93 L (1.0-4.8) k/uL Metamyelocytes # (Man) 0.09 H (0) k/uL Nucleated RBCs 1 H (0-0) /100 WBC Carbon Dioxide 33 H (22-30) mmol/L Procalcitonin (0.02-0.09) ng/mL Crossmatch See Detail 11/30/23 12/01/23 Range/Units 09:23 08:08 WBC 11.6 H (3.8-10.6) k/uL Hgb 7.6 L (11.4-16.0) gm/dL Hct 28.8 L (34.0-46.0) % MCV 68.8 L (80.0-100.0) fL MCH 18.2 L (25.0-35.0) pg MCHC 26.5 L (31.0-37.0) g/dL RDW 23.1 H (11.5-15.5) % Plt Count 506 H (150-450) k/uL Lymphocytes # (Manual) (1.0-4.8) k/uL Metamyelocytes # (Man) (0) k/uL Nucleated RBCs (0-0) /100 WBC Carbon Dioxide (22-30) mmol/L Procalcitonin 0.13 H (0.02-0.09) ng/mL Crossmatch Assessment and Plan (1) Microcytic hypochromic anemia Narrative/Plan: 73-year-old female presenting with shortness of breath with findings of microcytic anemia likely consistent with iron deficiency anemia who is on Eliquis for atrial fibrillation. Patient denies any signs of GI bleed however need to consider microscopic blood loss over a period of time. Last EGD colonos copy in 2020 without any concerns of GI bleed at that time. Patient has been on Eliquis for the last 6 to 7 years for atrial fibrillation. Need to consider possible GI source for anemia. Discussed with patient and family would recommend upper and and lower endoscopy, possible small bowel video capsule endoscopy. Patient is status post upper and lower endoscopy with upper endoscopy with findings of nonbleeding angioectasia status post argon plasma coagulation and colonoscopy with no active bleeding, colon polyp status post polypectomy and scattered diverticulosis. Hemoglobin stable. May resume Eliquis Current Visit: Yes Status: Acute Code(s): D50.9 - IRON DEFICIENCY ANEMIA, UNSPECIFIED SNOMED Code(s): 04198025 (2) Chronic atrial fibrillation Current Visit: Yes Status: Acute Code(s): I48.20 - CHRONIC ATRIAL FIBRILLATION, UNSPECIFIED SNOMED Code(s): 051000588 (3) COPD (chronic obstructive pulmonary disease) Current Visit: Yes Status: Acute Code(s): J44.9 - CHRONIC OBSTRUCTIVE PULMONARY DISEASE, UNSPECIFIED SNOMED Code(s): 78564084 (4) Altered mental status Current Visit: Yes Status: Acute Code(s): R41.82 - ALTERED MENTAL STATUS, UNSPECIFIED SNOMED Code(s): 837386875 (5) Angiectasia of gastrointestinal tract Current Visit: Yes Status: Acute Code(s): K31.819 - ANGIODYSPLASIA OF STOMACH AND DUODENUM WITHOUT BLEEDING SNOMED Code(s): 4770794945 Plan: 1. Continue symptomatic and supportive care 2. Daily CBC, transfuse for hemoglobin less than 7 3. May resume Eliquis 4. Diet as tolerated 5. Recommend iron supplements 6. Patient is status post endoscopic evaluation 7. Rest of medical management per primary medical team Thank you for this consultation, we will continue to follow. Dr. Mara Stotu I agree with the dictator's note, documented as a scribe by Yolie James.
[2023-12-01] MEDS: ENOXAPARIN 80 MG/0.8 ML SYRINGE SQ SCH (15:38)
[2023-12-01] MEDS: ENOXAPARIN 60 MG/0.6 ML SYRINGE SQ SCH (16:19)
[2023-12-01 17:25] LABS: ABG HCO3 38 mmol/L (21-25); ABG Oxygen Saturation 97.7 % (94-97); ABG PCO2 64 mmHg (35-45); ABG PH 7.38 (7.35-7.45); ABG PO2 80 mmHg (83-108); ABG TCO2 40 mmol/L (19-24); Allen Test Performed? Yes
[2023-12-01] MEDS: ALPRAZolam 0.25 MG TAB PO PRN (21:48)
--- NOTE | 2023-12-01 22:16 | P.PN ---
Subjective Patient is a 73-year-old female with a past medical history of chronic atrial fibrillation on anticoagulation with Eliquis, coronary artery disease, COPD and prior history of smoking, fibromyalgia, hyperlipidemia, history of WI, hypothyroidism, chronic low back pain and history of back stimulator implant, history of esophageal dysmotility and difficulty swallowing for a long time and prior history of EGDs, chronic CHF with systolic dysfunction as a correct 40 to 45% presents to ER with complaints of generalized weakness, lightheadedness and shortness of breath. Patient was having difficulty swallowing due to dysmotility. Patient has been having long-term problems with the esophagus. She is on anticoagulation with Eliquis. Patient also has chronic left lower extremity swelling more than right. Patient otherwise denies any chest pain. No cough or sputum production. No fever no chills. Chest x-ray showed new 0.5 cm nodule near the left lung base. CT imaging of the chest without contrast is advised. X-ray of the soft tissue neck showed minimal grade 1 retrolisthesis C3-C4 vertebrae. Degenerative disc disease. Airways are unremarkable. Soft tissues are unremarkable. EKG showed sinus tachycardia with occasional supraventricular premature complexes. Repeat x-ray this morning showed no acute cardiopulmonary process. Cardiom egaly. Laboratory data showed WBC 12.2 hemoglobin 6.5 and platelets 562, sodium 143 potassium 4.3 chloride 108 bicarb is 29 BUN 15 and creatinine 0.63 and blood sugar is 101. Liver enzymes are not elevated. Troponin x 1 negative FOBT negative 11/29/2023 Patient is currently lying in the bed. Awake alert and oriented x 3. Otherwise patient is very anxious about her medical condition. No complaints of chest pain or shortness of breath. Patient could not complete GoLytely. EGD and colonoscopy has been rescheduled. General surgery and pulmonary is on board. Laboratory data showed WBC 10.0 hemoglobin 7.1 and platelets 523. Patient is iron deficient. CT chest showed three-vessel coronary artery calcifications. Evidence of prior granulomatous disease. Multiple calcified mediastinal and hilar lymph nodes. COPD. Mild emphysema. Worsening aeration now with complete collapse of the r ight middle lobe. 4 mm left lower lobe pulmonary nodule. 6-month CT chest to reassess. 11/29 Patient looks pale and tired Patient hemoglobin 6.8, was 7.1 yesterday she is pending blood transfusion, she requires IV line placement as well Today she went EGD showing gastric antral angiectasia s/p plasma Argun plasma coagulation while colonoscopy showing polyp s/p polypectomy Aspirin and Eliquis on hold and can be resumed tomorrow per GI team Continue monitor hemoglobin Iron pills Also patient diagnosed with right middle lobe pneumonia with consolidation and currently is being treated with antibiotic Levaquin Pulmonary following also for left lower lobe pulmonary nodule that needs outpatient follow-up Family at bedside and all their questions were answered Discussed with staff 12/01/23 Patient today was more attentive confused her responses with scattered wheezing and breathing difficulty pH low, pCO2 elevated Patient started on BiPAP and transferred to the third floor ABG improved after BiPAP CT of the brain showing no acute process although motion artifact, I reviewed the results and agree Resume Eliquis per GI but because of confusion switch to therapeutic dose of Lovenox Discussed the case in detail with at bedside and he agrees with the above treatment plan, risk and benefit explained Patient status 1 unit of blood transfusion, hemoglobin improved 7.6 Continue monitoring. No overt signs symptoms of bleeding Review of systems CONSTITUTIONAL: No fever, no malaise, no fatigue. HEENT: No recent visual problems or hearing problems. Denied any sore thro GENITOURINARY: Denies any burning micturition, frequency, or urgency. MUSCULOSKELETAL/RHEUMATOLOGICAL: Denies any joint pain, swelling, or any muscle pain. ENDOCRINE: Denies any polyuria or polydipsia. Active Medications Generic Name Dose Route Start Last Admin Trade Name Freq PRN Reason Stop Dose Admin Acetaminophen 650 mg 11/28/23 07:49 11/30/23 20:01 Acetaminophen Tab 325 Mg Tab PO 650 mg Q6HR PRN Administration Fever and/ or Pain Albuterol/Ipratropium 3 ml 11/28/23 05:35 11/29/23 03:44 Ipratropium-Albuterol 3 Ml Neb INHALATION 3 ml RT-Q2H PRN Administration Shortness Of Breath Or Wheezing Albuterol/Ipratropium 3 ml 11/28/23 08:00 11/30/23 21:19 Ipratropium-Albuterol 3 Ml Neb INHALATION 3 ml RT-QID LLOYD Administration Atorvastatin Calcium 80 mg 11/29/23 09:00 11/30/23 08:34 Atorvastatin 80 Mg Tab PO 80 mg DAILY LLOYD Administration Budesonide 0.5 mg 11/29/23 14:21 11/30/23 21:18 Budesonide 0.5 Mg/2 Ml Nebu INHALATION 0.5 mg RT-BID LLOYD Administration Dapagliflozin 5 mg 11/29/23 14:30 11/30/23 14:27 Dapagliflozin Propanediol 5 Mg Tablet PO Not Given DAILY LLOYD Ezetimibe 10 mg 11/28/23 21:00 11/30/23 20:01 Ezetimibe 10 Mg Tab PO 10 mg HS LLOYD Administration Ferrous Sulfate 325 mg 11/29/23 22:30 11/30/23 18:51 Ferrous Sulfate 325 Mg Tab PO 325 mg BID-W/MEALS LLOYD Administration Levofloxacin 500 mg/ IV 100 mls @ 100 mls/hr 11/29/23 17:00 11/30/23 18:51 Solution IVPB 100 mls/hr Q24H LLOYD Administration Protocol Metoprolol Tartrate 75 mg 11/28/23 11:45 11/30/23 20:01 Metoprolol Tartrate 50 Mg Tab PO 75 mg BID LLOYD Administration Naloxone HCl 0.2 mg 11/28/23 04:56 Naloxone 0.4 Mg/Ml 1 Ml Vial IV Q2M PRN Opioid Reversal Pantoprazole Sodium 40 mg 11/28/23 11:45 11/30/23 08:34 Pantoprazole 40 Mg/10 Ml Vial IVP 40 mg DAILY LLOYD Administration Objective - Vital Signs Vital signs: Vital Signs Temp 98.6 F 12/01/23 10:06 Pulse 92 12/01/23 10:06 Resp 16 12/01/23 10:06 BP 116/63 12/01/23 10:06 Pulse Ox 96 12/01/23 10:06 FiO2 Intake & Output 11/30/23 12/01/23 12/01/23 18:59 06:59 18:59 Intake Total 200 790 Balance 200 790 Intake: IV 200 Oral 480 Blood Product 310 Rc As-1 Unit 310 [id number] Other: # Voids 0 2 # Bowel Movements 0 0 - Exam -GENERAL: The patient is obtund . HEENT: Pupils are round and equally reacting to light. EOMI. No scleral icterus. No conjunctival pallor. Normocephalic, atraumatic. No pharyngeal erythema. No thyromegaly. CARDIOVASCULAR: S1 and S2 present. No murmurs, rubs, or gallops. --PULMONARY: Chest is clear to auscultation, no wheezing , no crackles. Mild tachypnea with crepitation on the right side, obstructive breathing difficulty ABDOMEN: Soft, nontender, nondistended, normoactive bowel sounds. No palpable organomegaly. MUSCULOSKELETAL: No joint swelling or deformity. EXTREMITIES: No cyanosis, clubbing, or pedal edema. NEUROLOGICAL: Gross neurological examination did not reveal any focal deficits. SKIN: No rashes. no petechiae. - Labs CBC & Chem 7: 12/01/23 08:08 11/30/23 09:23 Labs: Abnormal Lab Results - Last 24 Hours (Table) 11/27/23 11/30/23 11/30/23 Range/Units 23:15 09:23 09:23 WBC (3.8-10.6) k/uL Hgb (11.4-16.0) gm/dL Hct (34.0-46.0) % MCV (80.0-100.0) fL MCH (25.0-35.0) pg MCHC (31.0-37.0) g/dL RDW (11.5-15.5) % Plt Count (150-450) k/uL Lymphocytes # (Manual) 0.93 L (1.0-4.8) k/uL Metamyelocytes # (Man) 0.09 H (0) k/uL Nucleated RBCs 1 H (0-0) /100 WBC Procalcitonin 0.13 H (0.02-0.09) ng/mL Crossmatch See Detail 12/01/23 Range/Units 08:08 WBC 11.6 H (3.8-10.6) k/uL Hgb 7.6 L (11.4-16.0) gm/dL Hct 28.8 L (34.0-46.0) % MCV 68.8 L (80.0-100.0) fL MCH 18.2 L (25.0-35.0) pg MCHC 26.5 L (31.0-37.0) g/dL RDW 23.1 H (11.5-15.5) % Plt Count 506 H (150-450) k/uL Lymphocytes # (Manual) (1.0-4.8) k/uL Metamyelocytes # (Man) (0) k/uL Nucleated RBCs (0-0) /100 WBC Procalcitonin (0.02-0.09) ng/mL Crossmatch Assessment and Plan Assessment: 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 History of present dysmotility and chronic issues with swallowing Chronic atrial fibrillation on anticoagulation with Eliquis Chronic CHF with systolic dysfunction ejection fraction 40 to 45%. Left upper lobe 0.5 cm pulmonary nodule COPD not on home oxygen Coronary artery disease with no prior history of PCI Hypothyroidism Chronic low back pain and history of back stimulator placement History of breast cancer status post right mastectomy Prior history of smoking GI prophylaxis with PPI Plan: Status post 2 units of blood transfusion Monitor hemoglobin Transfer to select unit Started on BiPAP Monitor oxygen and CO2 level Continue with broad-spectrum antibiotic per pulmonary team Resume Eliquis per GI team. But reports patient clinical status change with starting her on Lovenox therapeutic dose. Risk of bleeding explained to the at bedside and he agrees Pulmonary and GI consult on the case Labs and medication were reviewed.. Continue same treatment. Continue with symptomatic treatment. Resume home medication. Monitor labs and vitals. DVT and GI prophylaxis. Further recommendations as per clinical course of the patient DVT prophylaxis:, Was on Eliquis at home which can be resumed per GI team GI Prophylaxis: ppi PT/OT: Pending Prognosis is guarded
[2023-12-02] MEDS: ADENOSINE 3 MG/ML 2 ML VIAL IVP ONE ×2 (09:13→09:16)
[2023-12-02] MEDS ORDERED: MAGNESIUM SULFATE-D5W PMX 1 GM in DEXTROSE/WATER 1 100ML.BAG IVPB SCH (09:30)
[2023-12-02] MEDS: MAGNESIUM SULFATE-WATER PMX 4 GM in WATER FOR INJECTION 1 100ML.BAG IVPB STA (09:35)
--- NOTE | 2023-12-02 09:47 | P.PN ---
Subjective Progress Note Date: 12/02/23 Principal diagnosis: Anemia This is a pleasant 73-year-old female with a history of atrial fibrillation on Eliquis, dysphagia, COPD, coronary artery disease, GERD, fibromyalgia, h yperlipidemia, thyroid disorder, and PR who presented to the emergency department with complaints of shortness of breath. Patient was noted to have a low hemoglobin of 6.5 in the emergency department. She had microcytic anemia, iron studies ordered. She denies any blood in her stool, no black stool, no abdominal pain, nausea or vomiting. Patient has chronic dysphagia and he has undergone upper endoscopy as well as lower endoscopy in February 2021. Upper endoscopy with findings of normal-appearing esophagus with no evidence of esophagitis or esophageal stricture, mild antral gastritis. Colonoscopy revealed a transverse colon polyp and sigmoid colon polyp status post polypectomy and scattered sigmoid diverticulosis. Patient had a unit of blood with repeat hemoglobin today of 7.5. Stool occult blood negative. 11/29/2023 Patient seen and examined today as a follow-up. She was scheduled for EGD and colonoscopy today however did not complete her prep. Patient denies any blood or black stool. Nursing reports stool is still brown. Hemoglobin today 7.1, she is status post 1 unit PRBC transfusion. She denies any abdominal pain, nausea or vomiting. 12/01/2023 Patient is seen and examined today as a follow-up. This morning she is very lethargic just opens her eyes but does not respond much. She does deny any abdominal pain. She did have a low-grade fever this morning of 99.8. Yesterday she underwent upper and lower endoscopy. Upper endoscopy revealed nonbleeding angioectasia in the antrum as well as in the duodenum status post argon plasma coagulation and colonoscopy revealed descending colon polyp status post polypectomy and scattered sigmoid diverticulosis. No reported bleeding. Repeat hemoglobin 7.6 12/02/2023 Patient seen and examined as a follow up. Today she is much more alert and orientated. She denies any abdominal pain, nausea, or vomiting. She denies any bowel movement and no bleeding. Labs not available at this time. Objective - Vital Signs Vital signs: Vital Signs Temp 98.1 F 12/02/23 03:23 Pulse 86 12/02/23 03:23 Resp 20 12/02/23 03:23 BP 106/66 12/02/23 03:23 Pulse Ox 96 12/02/23 03:23 FiO2 40 12/02/23 00:35 Intake & Output 12/01/23 12/02/23 12/02/23 18:59 06:59 18:59 Intake Total 232 Balance 232 Weight 63.5 kg Intake: IV 10 Invasive Line 2 10 Oral 222 Other: Voiding Method Bedpan Bedpan # Voids 2 2 - Exam General appearance: The patient is lalert and orientated, appears in no acute distress. HET: Head is normocephalic and atraumatic. Conjunctiva pink. Sclera anicteric. Neck: Supple without lymphadenopathy. Abdomen: Soft, nontender, nondistended with bowel sounds. No guarding or rigidity. Extremities: Normal skin color and turgor. No pedal edema Skin: No rashes, no jaundice Neurological: Alert and orientated. - Labs CBC & Chem 7: 12/01/23 08:08 11/30/23 09:23 Labs: Abnormal Lab Results - Last 24 Hours (Table) 12/01/23 12/01/23 12/01/23 Range/Units 08:08 12:12 17:19 WBC 11.6 H (3.8-10.6) k/uL Hgb 7.6 L (11.4-16.0) gm/dL Hct 28.8 L (34.0-46.0) % MCV 68.8 L (80.0-100.0) fL MCH 18.2 L (25.0-35.0) pg MCHC 26.5 L (31.0-37.0) g/dL RDW 23.1 H (11.5-15.5) % Plt Count 506 H (150-450) k/uL ABG pH 7.21 L (7.35-7.45) ABG pCO2 >98 H* 64 H (35-45) mmHg ABG pO2 80 L (83-108) mmHg ABG HCO3 38 H (21-25) mmol/L ABG Total CO2 40 H (19-24) mmol/L ABG O2 Saturation 97.7 H (94-97) % Assessment and Plan (1) Microcytic hypochromic anemia Narrative/Plan: 73-year-old female presenting with shortness of breath with findings of microcytic anemia likely consistent with iron deficiency anemia who is on Eliqu is for atrial fibrillation. Patient denies any signs of GI bleed however need to consider microscopic blood loss over a period of time. Last EGD colonoscopy in 2020 without any concerns of GI bleed at that time. Patient has been on Eliquis for the last 6 to 7 years for atrial fibrillation. Need to consider possible GI source for anemia. Discussed with patient and family would recommend upper and and lower endoscopy, possible small bowel video capsule endoscopy. Patient is status post upper and lower endoscopy with upper endoscopy with findings of nonbleeding angioectasia status post argon plasma coagulation and colonoscopy with no active bleeding, colon polyp status post polypectomy and scattered diverticulosis. Hemoglobin stable. May resume Eliquis Current Visit: Yes Status: Acute Code(s): D50.9 - IRON DEFICIENCY ANEMIA, UNSPECIFIED SNOMED Code(s): 19264452 (2) Chronic atrial fibrillation Current Visit: Yes Status: Acute Code(s): I48.20 - CHRONIC ATRIAL FIBRILLATION, UNSPECIFIED SNOMED Code(s): 219092044 (3) COPD (chronic obstructive pulmonary disease) Current Visit: Yes Status: Acute Code(s): J44.9 - CHRONIC OBSTRUCTIVE PULMONARY DISEASE, UNSPECIFIED SNOMED Code(s): 03597307 (4) Altered mental status Current Visit: Yes Status: Acute Code(s): R41.82 - ALTERED MENTAL STATUS, UNSPECIFIED SNOMED Code(s): 765246933 (5) Angiectasia of gastrointestinal tract Current Visit: Yes Status: Acute Code(s): K31.819 - ANGIODYSPLASIA OF STOMACH AND DUODENUM WITHOUT BLEEDING SNOMED Code(s): 8306724982 Plan: 1. Continue symptomatic and supportive care 2. Daily CBC, transfuse for hemoglobin less than 7 3. May resume Eliquis 4. Diet as tolerated 5. Recommend iron supplements 6. Patient is status post endoscopic evaluation 7. Rest of medical management per primary medical team Thank you for this consultation, we will sign off at this time Dr. Mara Stout I agree with the dictator's note, documented as a scribe by Yolie James.
[2023-12-02 11:43] LABS: Anisocytosis Marked; HCT 32.5 % (34.0-46.0); HGB 8.4 gm/dL (11.4-16.0); Hypochromasia Marked; MCH 18.2 pg (25.0-35.0); MCHC 25.9 g/dL (31.0-37.0); MCV 70.2 fL (80.0-100.0); Mean Platelet Volume 9.1; Microcytosis Marked; Platelet Count 633 k/uL (150-450); Poikilocytosis Moderate; RBC 4.63 m/uL (3.80-5.40); RDW 24.9 % (11.5-15.5); WBC 15.5 k/uL (3.8-10.6)
[2023-12-02 11:53] LABS: African American GFR (CKD) >90 (>60 ml/min/1.73 sqM); Anion Gap 2 mmol/L; Blood Urea Nitrogen 16 mg/dL (7-17); Calcium 8.8 mg/dL (8.4-10.2); Carbon Dioxide 38 mmol/L (22-30); Chloride 98 mmol/L (98-107); Glucose 118 mg/dL (74-99); Non-African American GFR(CKD) >90 (>60 ml/min/1.73 sqM); Potassium 4.1 mmol/L (3.5-5.1); Sodium 138 mmol/L (137-145)
[2023-12-02] MEDS: DEXTROSE 5% IN WATER 250 ML with AMIODARONE 300 MG IV ONE (11:56)
--- NOTE | 2023-12-02 16:15 | P.PN ---
Subjective Progress Note Date: 12/02/23 Principal diagnosis: right middle lobe pneumonia 4 mm smallleft lower lobe nodule Microcytic anemia COPD not in exacerbation Generalized weakness and fatigue calcified hilar and mediastinal lymphadenopathy compared with prior medicines dysphagia for solid foods Generalized anxiety disorder 12/02/2023, patient seen eval examined during rounds labs reviewed medications and care plan discussed,patient is on 2 L nasal cannula, was treated with BiPAP now off of BiPAP, denies any chest pain however still have some shortness of breath mental status significantly cleared.labs from today reviewed white cell count 15.5 with hemoglobin and hematocrit is 8.4/32, arterial blood gas initially was 7.2/pCO2 98 pO2 91 post BiPAP improved to 7.38 CO2 is 64 O2 is 80 today chemistry is CO2 38 BUN/creatinine 16/0.53, computed tomography scan of the head negative for acute changes white matter changes suggestive of small vessel ischemic diseasecurrently patient is on IV Levaquin along with bronchodilators and IV Cardizem 12/01/2023, patient seen eval examined during the rounds labs reviewed medications reviewed care plan discussed with the staff at length. 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 This morning on evaluation patient pleasantly confused different than baseline arousable but goes back to sleep.she is afebrile hemodynamic status stable FiO2 however is up to 5 L nasal cannula oxygen saturation is mid 90s.currently she is on bronchodilators and and a slice inhaled steroids are hypoglycemic agents along with antihypertensive. It appears that she has been receiving benzodiazepine and narcoticslabs were hemoglobin 7.6 from 6.8 post transfusion of one unit of packed RBC chemistry not done today however BUN/creatinine 14/155 CO2 was 33 yesterday pro-calcitonin is 0.13. Patient remains on IV Levaquin for pneumonia 11/29/2023, patient seen eval examined sitting upright in the bed intermittent cough is present denies any chest pain, patient is pale-appearing, sinus present bedside, patient is process of getting preparation for colonoscopy and endoscopy tomorrowthe patient remains on bronchodilator and inhaled corticosteroids, has been on Protonix as well along with continuation of home medicationslabs from today reviewed white cell count is 10.1, hemoglobin hematocrit is 7.1/26-related on a 523 sodium 142 potassium 4 BUN/creatinine is the 16/0.64, iron studies reviews total iron is 29 TIBC is 549 saturation is 5.28 ferritin level was 2.3 low BNP is 693 73-year-old female well-known to me from of ischemic disease with generalized weakness tiredness and fatigue she was found to be anemic she also have issues associated with dysphagia mostly to solid food she has history of significant lung disease and severe COPD and chronic scarring of the lung. She is she used to smoke heavily but quit several years ago she has a history of lung nodules the past has been monitor observed by me for many louis with Dr. Blancas on palpation requested to stop the scanning.her chest x-ray significant for 0.5 cm nodule in left lung base computed tomography scan of the chest is recommended, x-ray of the neck soft tissue DJD seenon specific questioning she denies any loss of consciousness have braces denies any dizziness lightheadedness denies any chest pain or radiation of pain no cough or sputum production mostly cough is dry and nonproductive, denies any hemoptysis hematemesis no bowel or bladder related problem stool color has been normal.her WBC count is 12.2, hemoglobin 6.5 MCV 62 doses history of microcytic anemia chemistry significant for the BUN/creatinine 15/0.6 E Restoril history fairly within normal limit, stool for occult blood is negative. Currently patient is on DuoNeb 4 times a day, and continuation of her medications and also on Protonix, patient is scheduled for endoscopy also being considered for a computed tomography scan of the chest Objective - Vital Signs Vital signs: Vital Signs Temp 97.9 F 12/02/23 08:41 Pulse 94 12/02/23 16:00 Resp 18 12/02/23 11:16 BP 123/72 12/02/23 11:16 Pulse Ox 92 L 12/02/23 11:16 FiO2 40 12/02/23 11:51 Intake & Output 12/01/23 12/02/23 12/02/23 18:59 06:59 18:59 Intake Total 232 138 Balance 232 138 Weight 63.5 kg Intake: IV 10 20 Invasive Line 2 10 20 Oral 222 118 Other: Voiding Method Bedpan Bedpan Bedpan # Voids 2 2 1 - Exam - Constitutional General appearance: average body habitus, mental status significantly improved compared to yesterday exam, somnolent but arousable - EENT Eyes: EOMI, PERRLA Ears: bilateral: normal - Neck Neck: normal ROM Carotids: bilateral: upstroke normal Thyroid: bilateral: normal size - Respiratory Respiratory: bilateral: diminished - Cardiovascular Rhythm: regular Heart sounds: normal: S1, S2 - Integumentary Integumentary: decreased turgor - Neurologic Neurologic: alert awake oriented 1 only, very somnolent goes back right to sleep on physical and verbal stimuli - Musculoskeletal Musculoskeletal: gait normal, generalized weakness, strength equal bilaterally - Psychiatric Psychiatric: alert awake oriented 1 only, very somnolent goes back right to sleep on physical and verbal stimuli - Labs CBC & Chem 7: 12/02/23 10:55 12/02/23 10:55 Labs: Abnormal Lab Results - Last 24 Hours (Table) 12/01/23 12/02/23 12/02/23 Range/Units 17:19 10:55 10:55 WBC 15.5 H (3.8-10.6) k/uL Hgb 8.4 L (11.4-16.0) gm/dL Hct 32.5 L (34.0-46.0) % MCV 70.2 L (80.0-100.0) fL MCH 18.2 L (25.0-35.0) pg MCHC 25.9 L (31.0-37.0) g/dL RDW 24.9 H (11.5-15.5) % Plt Count 633 H (150-450) k/uL ABG pCO2 64 H (35-45) mmHg ABG pO2 80 L (83-108) mmHg ABG HCO3 38 H (21-25) mmol/L ABG Total CO2 40 H (19-24) mmol/L ABG O2 Saturation 97.7 H (94-97) % Carbon Dioxide 38 H (22-30) mmol/L Glucose 118 H (74-99) mg/dL Assessment and Plan Assessment: altered mental status due to hypercapnic hypoxic respiratory failure and elevated CO2,responded well with BiPAP with normalization of CABG and clearing of mental state 4 mm small left lower lobe nodule atrial tachycardia, on IV Cardizem to be evaluated further by cardiovascular services Microcytic anemia COPD not in exacerbation Generalized weakness and fatigue calcified hilar and mediastinal lymphadenopathy compared with prior medicines dysphagia for solid foods Generalized anxiety disorder Plan: computed tomography scan of the head, ABG, chest x-ray Reviewed, continue supplemental oxygen recommend to use BiPAP each night and when necessary during the day continue bronchodilator and supplemental oxygen hold on steroids for now reviewed computed tomography scan of the chest without contrast, findings discussed and reviewed with the present at bedsidefor left lower lobe nodule which is 4 mm in size follow-up computed tomography scan on outpatient basis, Broad-spectrum antibiotics patient prefers IV Levaquin we'll start that Continue bronchodilators Ongoing symptoms of dysphagia with microcytic anemia appropriate to do upper endoscopy and lower endoscopy Patient needs to be supplemental home oxygen we will evaluate at time of discharge Time with Patient: Greater than 30
--- NOTE | 2023-12-02 16:37 | P.PN ---
Subjective Progress Note Date: 12/02/23 73-year-old female with a past medical history of chronic atrial fibrillation on anticoagulation with Eliquis, coronary artery disease, COPD and prior history of smoking, fibromyalgia, hyperlipidemia, history of UT, hypothyroidism, chronic low back pain and history of back stimulator implant, history of esophageal dysmotility and difficulty swallowing for a long time and prior history of EGDs, chronic CHF with systolic dysfunction as a correct 40 to 45% presents to ER with complaints of generalized weakness, lightheadedness and shortness of breath. Patient was having difficulty swallowing due to dysmotility. Patient has been having long-term problems with the esophagus. She is on anticoagulation with Eliquis. Patient also has chronic left lower extremity swelling more than right. Patient otherwise denies any chest pain. No cough or sputum production. No fever no chills. Chest x-ray showed new 0.5 cm nodule near the left lung base. CT imaging of the chest without contrast is advised. X-ray of the soft tissue neck showed minimal grade 1 retrolisthesis C3-C4 vertebrae. Degenerative disc disease. Airways are unremarkable. Soft tissues are unremarkable. EKG showed sinus tachycardia with occasional supraventricular premature complexes. Repeat x-ray this morning showed no acute cardiopulmonary process. Cardiomegaly. Laboratory data showed WBC 12.2 hemoglobin 6.5 and platelets 562, sodium 143 potassium 4.3 chloride 108 bicarb is 29 BUN 15 and creatinine 0.63 and blood sugar is 101. Liver enzymes are not elevated. Troponin x 1 negative FOBT negative Objective - Vital Signs Vital signs: Vital Signs Temp 97.9 F 12/02/23 08:41 Pulse 92 12/02/23 11:16 Resp 18 12/02/23 11:16 BP 123/72 12/02/23 11:16 Pulse Ox 92 L 12/02/23 11:16 FiO2 40 12/02/23 00:35 Intake & Output 12/01/23 12/02/23 12/02/23 18:59 06:59 18:59 Intake Total 232 Balance 232 Weight 63.5 kg Intake: IV 10 Invasive Line 2 10 Oral 222 Other: Voiding Method Bedpan Bedpan Bedpan # Voids 2 2 1 - Exam -GENERAL: The patient is obtund . HEENT: Pupils are round and equally reacting to light. EOMI. No scleral icterus. No conjunctival pallor. Normocephalic, atraumatic. No pharyngeal erythema. No thyromegaly. CARDIOVASCULAR: S1 and S2 present. No murmurs, rubs, or gallops. --PULMONARY: Chest is clear to auscultation, no wheezing , no crackles. Mild tachypnea with crepitation on the right side, obstructive breathing difficulty ABDOMEN: Soft, nontender, nondistended, normoactive bowel sounds. No palpable organomegaly. MUSCULOSKELETAL: No joint swelling or deformity. EXTREMITIES: No cyanosis, clubbing, or pedal edema. NEUROLOGICAL: Gross neurological examination did not reveal any focal deficits. SKIN: No rashes. no petechiae. 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 History of present dysmotility and chronic issues with swallowing Chronic atrial fibrillation on anticoagulation with Eliquis Chronic CHF with systolic dysfunction ejection fraction 40 to 45%. Left upper lobe 0.5 cm pulmonary nodule COPD not on home oxygen Coronary artery disease with no prior history of PCI Hypothyroidism Chronic low back pain and history of back stimulator placement History of breast cancer status post right mastectomy Prior history of smoking GI prophylaxis with PPI Plan: Status post 2 units of blood transfusion Monitor hemoglobin Transfer to select unit Started on BiPAP Monitor oxygen and CO2 level Continue with broad-spectrum antibiotic per pulmonary team Resume Eliquis per GI team. But reports patient clinical status change with starting her on Lovenox therapeutic dose. Risk of bleeding explained to the at bedside and he agrees Pulmonary and GI consult on the case Labs and medication were reviewed.. Continue same treatment. Continue with symptomatic treatment. Resume home medication. Monitor labs and vitals. DVT and GI prophylaxis. Further recommendations as per clinical course of the patient DVT prophylaxis:, Was on Eliquis at home which can be resumed per GI team
[2023-12-02] MEDS: DILTIAZEM 125 MG in SODIUM CHLORIDE 0.9% 100 ML IV SCH (18:58)
[2023-12-02] MEDS: AMIODARONE 200 MG TAB PO SCH (20:01)
[2023-12-03 11:52] LABS: Anisocytosis Marked; Basophils % (A) 0 %; Eosinophils # (A) 0.1 k/uL (0-0.7); Eosinophils % (A) 1 %; HCT 27.5 % (34.0-46.0); HGB 7.2 gm/dL (11.4-16.0); Hypochromasia Marked; Lymphocytes # (A) 0.8 k/uL (1.0-4.8); Lymphocytes % (A) 6 %; MCHC 26.3 g/dL (31.0-37.0); MCV 68.7 fL (80.0-100.0); Mean Platelet Volume 8.8; Microcytosis Marked; Monocytes # (A) 0.9 k/uL (0-1.0); Monocytes % (A) 7 %; Neutrophils # (A) 10.9 k/uL (1.3-7.7); Neutrophils % (A) 84 %; Platelet Count 495 k/uL (150-450); Poikilocytosis Moderate
[2023-12-03 12:04] LABS: African American GFR (CKD) >90 (>60 ml/min/1.73 sqM); Blood Urea Nitrogen 19 mg/dL (7-17); Chloride 99 mmol/L (98-107); Glucose 94 mg/dL (74-99); Non-African American GFR(CKD) >90 (>60 ml/min/1.73 sqM); Potassium 3.6 mmol/L (3.5-5.1); Sodium 139 mmol/L (137-145)
[2023-12-03 12:11] LABS: Anion Gap 2 mmol/L; Carbon Dioxide 38 mmol/L (22-30)
--- NOTE | 2023-12-03 12:52 | CA ---
Transthoracic Echo Report Name: Valeria Atkins Age: 73 Gender: F : 1950 Exam Date: 12/02/2023 15:28 Exam Location: [facility] Ht (in): 66 Wt (lb): 139 Ordering Physician: Abhijeet Lyon MD ([id number]) Attending/Referring Phys: Rivet Maker Lorena Skinner, SHAUNA Procedure CPT: Indications: afib,sob Cardiac Hx: IN, COPD Technical Quality: Fair Contrast 1: Definity Total Dose (mL): 2 Contrast 2: Total Dose (mL): MEASUREMENTS (Male / Female) Normal Values 2D ECHO LV Diastolic Diameter PLAX 5.1 cm 4.2 - 5.9 / 3.9 - 5.3 cm LV Systolic Diameter PLAX 4.0 cm IVS Diastolic Thickness 1.2 cm 0.6 - 1.0 / 0.6 - 0.9 cm LVPW Diastolic Thickness 1.2 cm 0.6 - 1.0 / 0.6 - 0.9 cm LV Relative Wall Thickness 0.5 RV Internal Dim ED PLAX 2.2 cm LVOT Diameter 1.8 cm LA Systolic Diameter LX 3.1 cm 3.0 - 4.0 / 2.7 - 3.8 cm LA Volume 77.4 cm??? 18 - 58 / 22 - 52 cm??? LA Volume Index 45.1 cm???/m??? 16 - 28 cm???/m??? M-MODE Aortic Root Diameter MM 2.4 cm LA Systolic Diameter MM 3.5 cm LA Ao Ratio MM 1.4 AV Cusp Separation MM 1.7 cm DOPPLER AV Peak Velocity 229.6 cm/s AV Peak Gradient 21.1 mmHg AV Mean Velocity 195.1 cm/s AV Mean Gradient 16.2 mmHg AV Velocity Time Integral 49.5 cm AI Peak Velocity 302.2 cm/s AI Peak Gradient 36.5 mmHg AI Pressure Half Time 665.7 ms LVOT Peak Velocity 127.8 cm/s LVOT Peak Gradient 6.5 mmHg LVOT Velocity Time Integral 26.7 cm LVOT Stroke Volume 66.1 cm??? LVOT Stroke Volume Index 38.6 ml/m??? LVOT Cardiac Index 3502.9 cm???/min???m??? AV Area Cont Eq vti 1.3 cm??? AV Area Cont Eq pk 1.4 cm??? MV Area PHT 2.9 cm??? Mitral E Point Velocity 111.9 cm/s Mitral A Point Velocity 121.5 cm/s Mitral E to A Ratio 0.9 MV Deceleration Time 257.4 ms TR Peak Velocity 322.8 cm/s TR Peak Gradient 41.7 mmHg Right Atrial Pressure 10.0 mmHg Pulmonary Artery Systolic Pressu 51.7 mmHg Right Ventricular Systolic Press 51.7 mmHg FINDINGS Left Ventricle Left ventricular ejection fraction is estimated at 35-40 %. Mildly increased septal wall thickness. Mildly increased posterior wall thickness. Clyde hypokinetic. Right Ventricle Normal right ventricular size and function. Moderate pulmonary hypertension. Right Atrium Mild right atrial dilatation. Left Atrium Severely increased left atrial volume. Mildly increased left atrial area. Mitral Valve Structurally normal mitral valve. Moderate mitral regurgitation. No mitral stenosis. Aortic Valve Trileaflet aortic valve. Diffuse thickening (sclerosis) of the aortic valve cusps without reduced excursion. Trace to mild aortic regurgitation. Tricuspid Valve Structurally normal tricuspid valve. Mild tricuspid regurgitation. Pulmonic Valve Structurally normal pulmonic valve. Trace to mild pulmonic regurgitation. No pulmonic stenosis. Pericardium No pericardial or pleural effusion. Echo free space anterior to the right ventricle likely represents a fat pad. Aorta Normal size aortic root and proximal ascending aorta. CONCLUSIONS Reduced LV systolic function ejection fraction 35 % with large anterior apical apical hypokinesis/aneurysm Previewed by: Dr. Abhijeet Lyon MD (Electronically Signed) Final Date: 03 December 2023 12:51
--- NOTE | 2023-12-03 13:55 | P.CRDCN ---
History of Present Illness Consult date: 12/03/23 Consult reason: atrial fibrillation History of present illness: patient is 73-year-old female who initially presented to the emergency room shortness of breath. 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 Patient was also found to have a descending colon polyps, having polypectomy and mild diverticulitis. Cardiology was notified yesterday that the patient had spontaneously gone into A. fib with RVR. 4 g of magnesium was given via bolus over 1 hour and the patient converted back to sinus rhythm. DIAGNOSTICS: A. fib with RVR at 200 bpm echocardiogram reveals LV function at 35% with large anterior apical hypokinesis/aneurysm Lab data:WBC 13.0, hemoglobin 7.2, hematocrit 27.5, platelet 195, sodium 139, potassium 3.6, BUN 19, creatinine 0.46 REVIEW OF SYSTEMS: No fever or chills. No cough or expectoration. No diaphoresis. Patient denies headache, dizziness, blurred vision, double vision. Patient denies any stomach discomfort. No nausea, vomiting. No hematochezia. No hematemesis. Denies any black stools or blood in his stools. Denies dysuria or h ematuria.no chest pain or pressure. No difficulty breathing. positive for weakness and fatigue PHYSICAL EXAMINATION: This is a 73-year-old female in no apparent distress at the time of my examination. HEENT: Head is atraumatic, normocephalic. There is no jugular venous distention. No carotid bruit is heard. CHEST EXAMINATION: Lungs are clear to auscultation. No chest wall tenderness is noted on palpation or with deep breathing. HEART EXAMINATION: Heart regular rate and rhythm. S1, S2 heard. systolic murmur. No gallops or rub. ABDOMEN: Soft, nontender. Bowel sounds are heard. No organomegaly noted. EXTREMITIES: 2+ peripheral pulses with no evidence of peripheral edema and no calf tenderness noted. NEUROLOGIC EXAMINATION: Patient is awake, alert and oriented x3. FINAL ASSESSMENT AND PLAN: Microcytic anemia Angiectasia in the antrum and duodenum, status post argon plasma coagulation Colon polyp, status post snare polypectomy scattered sigmoid diverticulosis Cardiomyopathy, EF 35% with large anterior apical hypokinesis/aneurysm, likely Takotsubo Paroxysmal atrial fibrillation, conversion with IV magnesium PLAN: Resume anticoagulation when cleared by GI continue amiodarone short term Increase beta bailey for rate control Follow-up with primary media services specialist Dr. Stanford in one week post discharge I am dictating on behalf of Dr Abhijeet Lyon's history/physical and assessme nt/plan. Past Medical History Past Medical History: Atrial Fibrillation, Asthma, Coronary Artery Disease (CAD), Cancer, Chest Pain / Angina, COPD, Fibromyalgia, GERD/Reflux, Hyperlipidemia, Myocardial Infarction ([place]), Osteoarthritis (OA), Pneumonia, Thyroid Disorder Additional Past Medical History / Comment(s): HX PVC'S, IBS, CHRONIC LOW BACK PAIN RADIATING INTO RODRICK THIGHS-BULGING CERVICAL DISC, RT BREAST CA, back stimulator implant, hx hiatal hernia, hx ulcer, small thyroid nodules, lymphedema rt arm (No IV BP rt arm), "feel a vibration in esophagus when cough or sneeze", oc hurts when food goes down,indigestion and heartburn, on steroids for "ear pressure"(states Dr Stout aware) Last Myocardial Infarction Date:: 1997 History of Any Multi-Drug Resistant Organisms: None Reported Past Surgical History: Breast Surgery, Section, Cholecystectomy, Heart Catheterization, Hernia Repair Additional Past Surgical History / Comment(s): garrick fundlaplasty, MASTECTOMY RT BREAST, MANIPULATION LT ARM, left ROATOR CUFF,STRABISMUS EYE SURGERY, CTR LT WRIST,LT GREAT TOE HAS T SHAPED INPLANT IN, D&C, Past Anesthesia/Blood Transfusion Reactions: Previous Problems w/ Anesthesia Additional Past Anesthesia/Blood Transfusion Reaction / Comment(s): patient and mom-hard time coming out of it Smoking Status: Former smoker - Past Family History Mother Family Medical History: Deep Vein Thrombosis (DVT), Pulmonary Embolus Additional Family Medical History / Comment(s): . Medications and Allergies Home Medications Medication Instructions Recorded Confirmed Type Rosuvastatin Calcium [Crestor] 40 mg PO DAILY 09/12/14 11/28/23 History Ezetimibe [Zetia] 10 mg PO HS 07/02/17 11/28/23 History Apixaban [Eliquis] 5 mg PO BID #0 tab 02/16/19 11/28/23 Rx Pantoprazole Sodium [Protonix] 40 mg PO HS 02/13/21 11/28/23 History Vit C/E/Zn/Coppr/Lutein/Zeaxan 1 cap PO BID 02/13/21 11/28/23 History [Preservision Areds 2 Softgel] Acetaminophen/Diphenhydramine 1 tab PO HS 11/28/23 11/28/23 History [Tylenol PM 500-25mg] Aspirin EC [Ecotrin Low Dose] 81 mg PO DAILY 11/28/23 11/28/23 History Empagliflozin [Jardiance] 10 mg PO DAILY 11/28/23 11/28/23 History Ipratropium-Albuterol Nebulize 3 ml INHALATION RT-QID PRN 11/28/23 11/28/23 History [Duoneb 0.5 mg-3 mg/3 ml Soln] Metoprolol Tartrate [Lopressor] 75 mg PO BID 11/28/23 11/28/23 History Allergies Allergy/AdvReac Type Severity Reaction Status Date / Time adhesive tape Allergy Rash/Hives Verified 11/28/23 09:04 amoxicillin trihydrate Allergy Itching Verified 11/28/23 09:04 [From Augmentin] calcium Allergy Burning on Verified 11/28/23 09:04 inside itching on outside Cephalosporins Allergy Burning on Verified 11/28/23 09:04 inside -itching on outside clarithromycin [From Biaxin] Allergy burning on Verified 11/28/23 09:04 inside, itching on outside loratadine [From Claritin] Allergy Burning on Verified 11/28/23 09:04 inside- itching on outside NSAIDS (Non-Steroidal Allergy Burning on Verified 11/28/23 09:04 Anti-Inflamma inside-itching on outside potassium clavulanate Allergy Itching Verified 11/28/23 09:04 [From Augmentin] prednisone Allergy Burning on Verified 11/28/23 09:04 inside -itching on outside soy Allergy Burning on Verified 11/28/23 09:04 inside - itching on outside sulfamethoxazole Allergy Burning on Verified 11/28/23 09:04 [From Bactrim] inside -itching on outside tramadol HCl [From Ultram] Allergy Burning on Verified 11/28/23 09:04 inside -itching on outside trimethoprim [From Bactrim] Allergy Burning on Verified 11/28/23 09:04 inside -itching on outside steroids Allergy Burning on Uncoded 11/28/23 09:04 inside-itching on outside Physical Exam Vitals: Vital Signs Temp Pulse Pulse Pulse Resp BP Pulse Ox 12/03/23 11:57 88 12/03/23 11:48 94 12/03/23 08:33 96 12/03/23 08:14 92 91 L 12/03/23 08:00 98.2 F 86 18 135/64 95 12/03/23 05:13 88 12/03/23 03:09 98.3 F 87 18 107/64 97 12/03/23 00:00 98.0 F 88 18 107/64 93 L 12/02/23 20:32 89 12/02/23 20:17 80 12/02/23 19:55 98.2 F 95 18 120/73 94 L 12/02/23 17:06 98.2 F 90 18 130/75 90 L 12/02/23 16:09 98 12/02/23 16:00 94 FiO2 12/03/23 11:57 12/03/23 11:48 12/03/23 08:33 12/03/23 08:14 12/03/23 08:00 12/03/23 05:13 40 12/03/23 03:09 40 12/03/23 00:00 12/02/23 20:32 12/02/23 20:17 12/02/23 19:55 12/02/23 17:06 12/02/23 16:09 12/02/23 16:00 Intake and Output 12/02/23 12/03/23 12/03/23 22:59 06:59 14:59 Intake Total 10 Output Total 0 Balance 10 0 Intake: IV 10 Invasive Line 2 10 Output: Urine 0 Other: Voiding Method Bedpan Bedpan # Voids 1 Weight 63 kg Results 12/03/23 11:32 12/03/23 11:32 CBC 12/03/23 Range/Units 11:32 WBC 13.0 H (3.8-10.6) k/uL RBC 4.00 (3.80-5.40) m/uL Hgb 7.2 L (11.4-16.0) gm/dL Hct 27.5 L (34.0-46.0) % Plt Count 495 H (150-450) k/uL Comprehensive Metabolic Panel 12/03/23 Range/Units 11:32 Sodium 139 (137-145) mmol/L Potassium 3.6 (3.5-5.1) mmol/L Chloride 99 (98-107) mmol/L Carbon Dioxide 38 H (22-30) mmol/L BUN 19 H (7-17) mg/dL Creatinine 0.46 L (0.52-1.04) mg/dL Glucose 94 (74-99) mg/dL Calcium 8.0 L (8.4-10.2) mg/dL Current Medications Generic Name Dose Route Start Last Admin Trade Name Freq PRN Reason Stop Dose Admin Acetaminophen 650 mg 11/28/23 07:49 12/03/23 09:48 Acetaminophen Tab 325 Mg Tab PO 650 mg Q6HR PRN Administration Fever and/ or Pain Albuterol/Ipratropium 3 ml 11/28/23 05:35 12/03/23 05:11 Ipratropium-Albuterol 3 Ml Neb INHALATION 3 ml RT-Q2H PRN Administration Shortness Of Breath Or Wheezing Albuterol/Ipratropium 3 ml 11/28/23 08:00 12/03/23 11:46 Ipratropium-Albuterol 3 Ml Neb INHALATION 3 ml RT-QID LLOYD Administration Alprazolam 0.25 mg 12/01/23 21:43 12/03/23 00:55 Alprazolam 0.25 Mg Tab PO 0.25 mg BID PRN Administration Anxiety Amiodarone HCl 200 mg 12/02/23 21:00 12/03/23 09:42 Amiodarone 200 Mg Tab PO 200 mg BID LLOYD Administration Atorvastatin Calcium 80 mg 11/29/23 09:00 12/03/23 09:42 Atorvastatin 80 Mg Tab PO 80 mg DAILY LLOYD Administration Budesonide 0.5 mg 11/29/23 14:21 12/03/23 08:12 Budesonide 0.5 Mg/2 Ml Nebu INHALATION 0.5 mg RT-BID LLOYD Administration Dapagliflozin 5 mg 11/29/23 14:30 12/03/23 09:42 Dapagliflozin Propanediol 5 Mg Tablet PO 5 mg DAILY LLOYD Administration Ezetimibe 10 mg 11/28/23 21:00 12/02/23 20:01 Ezetimibe 10 Mg Tab PO 10 mg HS LLOYD Administration Enoxaparin Sodium 80 mg 12/01/23 13:15 12/03/23 09:43 Enoxaparin 80 Mg/0.8 Ml Syringe SQ 80 mg Q12HR LLOYD Administration Ferrous Sulfate 325 mg 11/29/23 22:30 12/03/23 06:28 Ferrous Sulfate 325 Mg Tab PO 325 mg BID-W/MEALS LLOYD Administration Levofloxacin 500 mg/ IV 100 mls @ 100 mls/hr 11/29/23 17:00 12/02/23 17:09 Solution IVPB 100 mls/hr Q24H LLOYD Administration Protocol Metoprolol Tartrate 100 mg 12/03/23 21:00 Metoprolol Tartrate 50 Mg Tab PO BID LLOYD Naloxone HCl 0.2 mg 11/28/23 04:56 Naloxone 0.4 Mg/Ml 1 Ml Vial IV Q2M PRN Opioid Reversal Pantoprazole Sodium 40 mg 11/28/23 11:45 12/03/23 09:43 Pantoprazole 40 Mg/10 Ml Vial IVP 40 mg DAILY LLOYD Administration Intake and Output 12/02/23 12/03/23 12/03/23 22:59 06:59 14:59 Intake Total 10 Output Total 0 Balance 10 0 Intake: IV 10 Invasive Line 2 10 Output: Urine 0 Other: Voiding Method Bedpan Bedpan # Voids 1 Weight 63 kg 12/03/23 11:32 12/03/23 11:32
--- NOTE | 2023-12-03 14:50 | P.PN ---
Subjective Progress Note Date: 12/03/23 Principal diagnosis: right middle lobe pneumonia 4 mm smallleft lower lobe nodule Microcytic anemia COPD not in exacerbation Generalized weakness and fatigue calcified hilar and mediastinal lymphadenopathy compared with prior medicines dysphagia for solid foods Generalized anxiety disorder 12/03/2023, patient seen eval examined during rounds labs reviewed medications reviewed, patient has refused using BiPAP machine now on supplemental oxygen,hemodynamic status stable, oxygen saturation on room air however is 97%, patient is awake and alert composed is present bedside he feels that patient mental status back to baseline, IV Solu-Medrol is being discontinued patient is stable from pulmonary standpoint for discharge will recommend follow- up in 1-2 weeks 12/02/2023, patient seen eval examined during rounds labs reviewed medications and care plan discussed,patient is on 2 L nasal cannula, was treated with BiPAP now off of BiPAP, denies any chest pain however still have some shortness of breath mental status significantly cleared.labs from today reviewed white cell count 15.5 with hemoglobin and hematocrit is 8.4/32, arterial blood gas initially was 7.2/pCO2 98 pO2 91 post BiPAP improved to 7.38 CO2 is 64 O2 is 80 today chemistry is CO2 38 BUN/creatinine 16/0.53, computed tomography scan of the head negative for acute changes white matter changes suggestive of small vessel ischemic diseasecurrently patient is on IV Levaquin along with bronchodi lators and IV Cardizem 12/01/2023, patient seen eval examined during the rounds labs reviewed medic ations reviewed care plan discussed with the staff at length. 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 This morning on evaluation patient pleasantly confused different than baseline arousable but goes back to sleep.she is afebrile hemodynamic status stable FiO2 however is up to 5 L nasal cannula oxygen saturation is mid 90s.currently she is on bronchodilators and and a slice inhaled steroids are hypoglycemic agents along with antihypertensive. It appears that she has been receiving benzodiazepine and narcoticslabs were hemoglobin 7.6 from 6.8 post transfusion of one unit of packed RBC chemistry not done today however BUN/creatinine 14/155 CO2 was 33 yesterday pro-calcitonin is 0.13. Patient remains on IV Levaquin for pneumonia 11/29/2023, patient seen eval examined sitting upright in the bed intermittent cough is present denies any chest pain, patient is pale-appearing, sinus present bedside, patient is process of getting preparation for colonoscopy and endoscopy tomorrowthe patient remains on bronchodilator and inhaled corticosteroids, has been on Protonix as well along with continuation of home medicationslabs from today reviewed white cell count is 10.1, hemoglobin hematocrit is 7.1/26-related on a 523 sodium 142 potassium 4 BUN/creatinine is the 16/0.64, iron studies reviews total iron is 29 TIBC is 549 saturation is 5.28 ferritin level was 2.3 low BNP is 693 73-year-old female well-known to me from of ischemic disease with generalized weakness tiredness and fatigue she was found to be anemic she also have issues associated with dysphagia mostly to solid food she has history of significant lung disease and severe COPD and chronic scarring of the lung. She is she used to smoke heavily but quit several years ago she has a history of lung nodules the past has been monitor observed by me for many louis with Dr. Blancas on palpation requested to stop the scanning.her chest x-ray significant for 0.5 cm nodule in left lung base computed tomography scan of the chest is recommended, x-ray of the neck soft tissue DJD seenon specific questioning she denies any loss of consciousness have braces denies any dizziness lightheadedness denies any chest pain or radiation of pain no cough or sputum production mostly cough is dry and nonproductive, denies any hemoptysis hematemesis no bowel or bladder related problem stool color has been normal.her WBC count is 12.2, hemoglobin 6.5 MCV 62 doses history of microcytic anemia chemistry significant for the BUN/creatinine 15/0.6 E Restoril history fairly within normal limit, stool for occult blood is negative. Currently patient is on DuoNeb 4 times a day, and continuation of her medications and also on Protonix, patient is scheduled for endoscopy also being considered for a computed tomography scan of the chest Objective - Vital Signs Vital signs: Vital Signs Temp 98.2 F 12/03/23 08:00 Pulse 85 12/03/23 13:53 Resp 18 12/03/23 08:00 BP 135/64 12/03/23 08:00 Pulse Ox 94 L 12/03/23 13:53 FiO2 40 12/03/23 05:13 Intake & Output 12/02/23 12/03/23 12/03/23 18:59 06:59 18:59 Intake Total 138 10 Output Total 0 Balance 138 10 Weight 63 kg Intake: IV 20 10 Invasive Line 2 20 10 Oral 118 Output: Urine 0 Other: Voiding Method Bedpan Bedpan # Voids 1 # Bowel Movements 1 - Exam - Constitutional General appearance: average body habitus, mental status significantly improved compared to yesterday exam, somnolent but arousable - EENT Eyes: EOMI, PERRLA Ears: bilateral: normal - Neck Neck: normal ROM Carotids: bilateral: upstroke normal Thyroid: bilateral: normal size - Respiratory Respiratory: bilateral: diminished - Cardiovascular Rhythm: regular Heart sounds: normal: S1, S2 - Integumentary Integumentary: decreased turgor - Neurologic Neurologic: alert awake oriented 1 only, very somnolent goes back right to sleep on physical and verbal stimuli - Musculoskeletal Musculoskeletal: gait normal, generalized weakness, strength equal bilaterally - Psychiatric Psychiatric: alert awake oriented 1 only, very somnolent goes back right to sleep on physical and verbal stimuli - Labs CBC & Chem 7: 12/03/23 11:32 12/03/23 11:32 Labs: Abnormal Lab Results - Last 24 Hours (Table) 12/03/23 12/03/23 Range/Units 11:32 11:32 WBC 13.0 H (3.8-10.6) k/uL Hgb 7.2 L (11.4-16.0) gm/dL Hct 27.5 L (34.0-46.0) % MCV 68.7 L (80.0-100.0) fL MCH 18.0 L (25.0-35.0) pg MCHC 26.3 L (31.0-37.0) g/dL RDW 26.0 H (11.5-15.5) % Plt Count 495 H (150-450) k/uL Neutrophils # 10.9 H (1.3-7.7) k/uL Lymphocytes # 0.8 L (1.0-4.8) k/uL Carbon Dioxide 38 H (22-30) mmol/L BUN 19 H (7-17) mg/dL Creatinine 0.46 L (0.52-1.04) mg/dL Calcium 8.0 L (8.4-10.2) mg/dL Assessment and Plan Assessment: altered mental status due to hypercapnic hypoxic respiratory failure and elevated CO2,responded well with BiPAP with normalization of CABG and clearing of mental state, back to baseline mental status 4 mm small left lower lobe nodule we'll follow on outpatient basis with periodic computed tomography scan if patient agreeable atrial tachycardia, stabilized Microcytic anemia, Continue to monitor closely COPD not in exacerbation Generalized weakness and fatigue calcified hilar and mediastinal lymphadenopathy compared with prior medicines dysphagia for solid foods Generalized anxiety disorder Plan: computed tomography scan of the head, ABG, chest x-ray Reviewed, continue supplemental oxygen recommend to use BiPAP each night and when necessary during the day continue bronchodilator and supplemental oxygen hold on steroids for now reviewed computed tomography scan of the chest without contrast, findings dis cussed and reviewed with the present at bedsidefor left lower lobe nodule which is 4 mm in size follow-up computed tomography scan on outpatient basis, Broad-spectrum antibiotics patient prefers IV Levaquin we'll start that Continue bronchodilators Ongoing symptoms of dysphagia with microcytic anemia appropriate to do upper endoscopy and lower endoscopy Patient needs to be supplemental home oxygen we will evaluate at time of discharge Time with Patient: Greater than 30
--- NOTE | 2023-12-03 18:26 | P.PN ---
Subjective Progress Note Date: 12/03/23 73-year-old female with a past medical history of chronic atrial fibrillation on anticoagulation with Eliquis, coronary artery disease, COPD and prior history of smoking, fibromyalgia, hyperlipidemia, history of LA, hypothyroidism, chronic low back pain and history of back stimulator implant, history of esophageal dysmotility and difficulty swallowing for a long time and prior history of EGDs, chronic CHF with systolic dysfunction as a correct 40 to 45% presents to ER with complaints of generalized weakness, lightheadedness and shortness of breath. Patient was having difficulty swallowing due to dysmotility. Patient has been having long-term problems with the esophagus. She is on anticoagulation with Eliquis. Patient also has chronic left lower extremity swelling more than right. Patient otherwise denies any chest pain. No cough or sputum production. No fever no chills. Chest x-ray showed new 0.5 cm nodule near the left lung base. CT imaging of the chest without contrast is advised. X-ray of the soft tissue neck showed minimal grade 1 retrolisthesis C3-C4 vertebrae. Degenerative disc disease. Airways are unremarkable. Soft tissues are unremarkable. EKG showed sinus tachycardia with occasional supraventricular premature complexes. Repeat x-ray this morning showed no acute cardiopulmonary process. Cardiomegaly. Laboratory data showed WBC 12.2 hemoglobin 6.5 and platelets 562, sodium 143 potassium 4.3 chloride 108 bicarb is 29 BUN 15 and creatinine 0.63 and blood sugar is 101. Liver enzymes are not elevated. Troponin x 1 negative FOBT negative 24-hour interval change 12/03/2023 Patient is seen and evaluated with family at bedside; eager to be discharged home; remains at O2 at 4 L per nasal cannula Vital signs are reviewed and remained stable; patient remains on IV Levaquin for acute hypoxic respiratory failure and acute exacerbation of COPD possible right middle lobe pneumonia -Discussed with pulmonary service in great detail and has been cleared for discharge if remains stable -- Patient will need home O2 which is being arranged Plan for discharge home with home oxygen once all arrangements are made, likely next 24 hours Objective - Vital Signs Vital signs: Vital Signs Temp 98.2 F 12/03/23 08:00 Pulse 96 12/03/23 08:33 Resp 18 12/03/23 08:00 BP 135/64 12/03/23 08:00 Pulse Ox 91 L 12/03/23 08:14 FiO2 40 12/03/23 05:13 Intake & Output 12/02/23 12/03/23 12/03/23 18:59 06:59 18:59 Intake Total 138 10 Output Total 0 Balance 138 10 Weight 63 kg Intake: IV 20 10 Invasive Line 2 20 10 Oral 118 Output: Urine 0 Other: Voiding Method Bedpan Bedpan # Voids 1 # Bowel Movements 1 - Exam -GENERAL: The patient is obtund . HEENT: Pupils are round and equally reacting to light. EOMI. No scleral icterus. No conjunctival pallor. Normocephalic, atraumatic. No pharyngeal erythema. No thyromegaly. CARDIOVASCULAR: S1 and S2 present. No murmurs, rubs, or gallops. --PULMONARY: Chest is clear to auscultation, no wheezing , no crackles. Mild tachypnea with crepitation on the right side, obstructive breathing difficulty ABDOMEN: Soft, nontender, nondistended, normoactive bowel sounds. No palpable organomegaly. MUSCULOSKELETAL: No joint swelling or deformity. EXTREMITIES: No cyanosis, clubbing, or pedal edema. NEUROLOGICAL: Gross neurological examination did not reveal any focal deficits. SKIN: No rashes. no petechiae. 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 History of present dysmotility and chronic issues with swallowing Chronic atrial fibrillation on anticoagulation with Eliquis Chronic CHF with systolic dysfunction ejection fraction 40 to 45%. Left upper lobe 0.5 cm pulmonary nodule COPD not on home oxygen Coronary artery disease with no prior history of PCI Hypothyroidism Chronic low back pain and history of back stimulator placement History of breast cancer status post right mastectomy Prior history of smoking GI prophylaxis with PPI Plan: Status post 2 units of blood transfusion Monitor hemoglobin Transfer to select unit Started on BiPAP Monitor oxygen and CO2 level Continue with broad-spectrum antibiotic per pulmonary team Resume Eliquis per GI team. But reports patient clinical status change with starting her on Lovenox therapeutic dose. Risk of bleeding explained to the at bedside and he agrees Pulmonary and GI consult on the case Labs and medication were reviewed.. Continue same treatment. Continue with symptomatic treatment. Resume home medication. Monitor labs and vitals. DVT and GI prophylaxis. Further recommendations as per clinical course of the patient DVT prophylaxis:, Was on Eliquis at home which can be resumed per GI team
[2023-12-03] MEDS: METOPROLOL TARTRATE 50 MG TAB PO SCH (19:55)
[2023-12-03] MEDS: LEVOFLOXACIN 500 MG TAB PO SCH (19:55)
[2023-12-04 05:30] LABS: Anisocytosis Marked; Basophils % (A) 0 %; Eosinophils # (A) 0.1 k/uL (0-0.7); Eosinophils % (A) 0 %; HCT 27.9 % (34.0-46.0); HGB 7.4 gm/dL (11.4-16.0); Hypochromasia Marked; Lymphocytes # (A) 1.3 k/uL (1.0-4.8); Lymphocytes % (A) 10 %; MCH 18.4 pg (25.0-35.0); MCHC 26.6 g/dL (31.0-37.0); MCV 69.2 fL (80.0-100.0); Mean Platelet Volume 9.1; Microcytosis Marked; Monocytes # (A) 0.7 k/uL (0-1.0); Monocytes % (A) 6 %; Neutrophils # (A) 10.5 k/uL (1.3-7.7); Neutrophils % (A) 82 %; Platelet Count 504 k/uL (150-450); Poikilocytosis Moderate; RBC 4.04 m/uL (3.80-5.40); WBC 12.8 k/uL (3.8-10.6)
[2023-12-04 05:37] LABS: RDW 27.3 % (11.5-15.5)
[2023-12-04 05:45] LABS: African American GFR (CKD) >90 (>60 ml/min/1.73 sqM); Anion Gap 4 mmol/L; Blood Urea Nitrogen 20 mg/dL (7-17); Calcium 8.1 mg/dL (8.4-10.2); Carbon Dioxide 37 mmol/L (22-30); Chloride 99 mmol/L (98-107); Glucose 79 mg/dL (74-99); Non-African American GFR(CKD) >90 (>60 ml/min/1.73 sqM); Potassium 3.5 mmol/L (3.5-5.1); Sodium 140 mmol/L (137-145)
[2023-12-04] MEDS ORDERED: ZINC OXIDE PASTE (Z-GUARD) 1 APPLIC TOPICAL SCH (09:00)
[2023-12-04 10:09] VITALS: BP 147/70; RESP 18; TEMP 97.8
[2023-12-04] MEDS: LOSARTAN 25 MG TAB PO SCH (11:30)
--- NOTE | 2023-12-04 11:30 | P.PN ---
Subjective Progress Note Date: 12/04/23 Principal diagnosis: right middle lobe pneumonia 4 mm smallleft lower lobe nodule Microcytic anemia COPD not in exacerbation Generalized weakness and fatigue calcified hilar and mediastinal lymphadenopathy compared with prior medicines dysphagia for solid foods Generalized anxiety disorder 12/04/2023, patient seen eval examined labs reviewed medications reviewed, currently patient is undergoing nebulizer treatment, patient desaturated easily at room air on activity into mid 80s, home oxygen is being arranged, continue antibiotics bronchodilators, 12/03/2023, patient seen eval examined during rounds labs reviewed medications reviewed, patient has refused using BiPAP machine now on supplemental oxygen,hemodynamic status stable, oxygen saturation on room air however is 97%, patient is awake and alert composed is present bedside he feels that patient mental status back to baseline, IV Solu-Medrol is being discontinued patient is stable from pulmonary standpoint for discharge will recommend follow- up in 1-2 weeks 12/02/2023, patient seen eval examined during rounds labs reviewed medications and care plan discussed,patient is on 2 L nasal cannula, was treated with BiPAP now off of BiPAP, denies any chest pain however still have some shortness of br eath mental status significantly cleared.labs from today reviewed white cell count 15.5 with hemoglobin and hematocrit is 8.4/32, arterial blood gas initially was 7.2/pCO2 98 pO2 91 post BiPAP improved to 7.38 CO2 is 64 O2 is 80 today chemistry is CO2 38 BUN/creatinine 16/0.53, computed tomography scan of the head negative for acute changes white matter changes suggestive of small vessel ischemic diseasecurrently patient is on IV Levaquin along with bronchodilators and IV Cardizem 12/01/2023, patient seen eval examined during the rounds labs reviewed medications reviewed care plan discussed with the staff at length. 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 This morning on evaluation patient pleasantly confused different than baseline arousable but goes back to sleep.she is afebrile hemodynamic status stable FiO2 however is up to 5 L nasal cannula oxygen saturation is mid 90s.cur rently she is on bronchodilators and and a slice inhaled steroids are hypoglycemic agents along with antihypertensive. It appears that she has been receiving benzodiazepine and narcoticslabs were hemoglobin 7.6 from 6.8 post transfusion of one unit of packed RBC chemistry not done today however BUN /creatinine 14/155 CO2 was 33 yesterday pro-calcitonin is 0.13. Patient remains on IV Levaquin for pneumonia 11/29/2023, patient seen eval examined sitting upright in the bed intermittent cough is present denies any chest pain, patient is pale-appearing, sinus present bedside, patient is process of getting preparation for colonoscopy and endoscopy tomorrowthe patient remains on bronchodilator and inhaled corticosteroids, has been on Protonix as well along with continuation of home medicationslabs from today reviewed white cell count is 10.1, hemoglobin hematocrit is 7.1/26-related on a 523 sodium 142 potassium 4 BUN/creatinine is the 16/0.64, iron studies reviews total iron is 29 TIBC is 549 saturation is 5.28 ferritin level was 2.3 low BNP is 693 73-year-old female well-known to me from of ischemic disease with generalized weakness tiredness and fatigue she was found to be anemic she also have issues associated with dysphagia mostly to solid food she has history of significant lung disease and severe COPD and chronic scarring of the lung. She is she used to smoke heavily but quit several years ago she has a history of lung nodules the past has been monitor observed by me for many louis with Dr. Blancas on palpation requested to stop the scanning.her chest x-ray significant for 0.5 cm nodule in left lung base computed tomography scan of the chest is recommended, x-ray of the neck soft tissue DJD seenon specific questioning she denies any loss of consciousness have braces denies any dizziness lightheadedness denies any chest pain or radiation of pain no cough or sputum production mostly cough is dry and nonproductive, denies any hemoptysis hematemesis no bowel or bladder related problem stool color has been normal.her WBC count is 12.2, hemoglobin 6.5 MCV 62 doses history of microcytic anemia chemistry significant for the BUN/creatinine 15/0.6 E Restoril history fairly within normal limit, stool for occult blood is negative. Currently patient is on DuoNeb 4 times a day, and continuation of her medications and also on Protonix, patient is scheduled for endoscopy also being considered for a computed tomography scan of the chest Objective - Vital Signs Vital signs: Vital Signs Temp 97.8 F 12/04/23 08:30 Pulse 80 12/04/23 11:09 Resp 18 12/04/23 08:30 BP 147/70 12/04/23 08:30 Pulse Ox 96 12/04/23 08:30 FiO2 40 12/03/23 21:06 Intake & Output 12/03/23 12/04/23 12/04/23 18:59 06:59 18:59 Intake Total 118 Output Total 0 900 Balance 118 -900 Weight 66.5 kg Intake: Oral 118 Output: Urine 0 900 Straight 900 Other: Voiding Method Bedside Commode Bedside Commode # Bowel Movements 1 1 - Exam - Constitutional General appearance: average body habitus, mental status significantly improved compared to yesterday exam, somnolent but arousable - EENT Eyes: EOMI, PERRLA Ears: bilateral: normal - Neck Neck: normal ROM Carotids: bilateral: upstroke normal Thyroid: bilateral: normal size - Respiratory Respiratory: bilateral: diminished - Cardiovascular Rhythm: regular Heart sounds: normal: S1, S2 - Integumentary Integumentary: decreased turgor - Neurologic Neurologic: alert awake oriented 1 only, very somnolent goes back right to sleep on physical and verbal stimuli - Musculoskeletal Musculoskeletal: gait normal, generalized weakness, strength equal bilaterally - Psychiatric Psychiatric: alert awake oriented 1 only, very somnolent goes back right to sleep on physical and verbal stimuli - Labs CBC & Chem 7: 12/04/23 05:07 12/04/23 05:07 Labs: Abnormal Lab Results - Last 24 Hours (Table) 12/03/23 12/03/23 12/04/23 Range/Units 11:32 11:32 05:07 WBC 13.0 H 12.8 H (3.8-10.6) k/uL Hgb 7.2 L 7.4 L (11.4-16.0) gm/dL Hct 27.5 L 27.9 L (34.0-46.0) % MCV 68.7 L 69.2 L (80.0-100.0) fL MCH 18.0 L 18.4 L (25.0-35.0) pg MCHC 26.3 L 26.6 L (31.0-37.0) g/dL RDW 26.0 H 27.3 H (11.5-15.5) % Plt Count 495 H 504 H (150-450) k/uL Neutrophils # 10.9 H 10.5 H (1.3-7.7) k/uL Lymphocytes # 0.8 L (1.0-4.8) k/uL Carbon Dioxide 38 H (22-30) mmol/L BUN 19 H (7-17) mg/dL Creatinine 0.46 L (0.52-1.04) mg/dL Calcium 8.0 L (8.4-10.2) mg/dL 12/04/23 Range/Units 05:07 WBC (3.8-10.6) k/uL Hgb (11.4-16.0) gm/dL Hct (34.0-46.0) % MCV (80.0-100.0) fL MCH (25.0-35.0) pg MCHC (31.0-37.0) g/dL RDW (11.5-15.5) % Plt Count (150-450) k/uL Neutrophils # (1.3-7.7) k/uL Lymphocytes # (1.0-4.8) k/uL Carbon Dioxide 37 H (22-30) mmol/L BUN 20 H (7-17) mg/dL Creatinine 0.44 L (0.52-1.04) mg/dL Calcium 8.1 L (8.4-10.2) mg/dL Assessment and Plan Assessment: altered mental status due to hypercapnic hypoxic respiratory failure and elevated CO2,responded well with BiPAP with normalization of CABG and clearing of mental state, back to baseline mental status 4 mm small left lower lobe nodule we'll follow on outpatient basis with periodic computed tomography scan if patient agreeable atrial tachycardia, stabilized Microcytic anemia, Continue to monitor closely COPD not in exacerbation Generalized weakness and fatigue calcified hilar and mediastinal lymphadenopathy compared with prior medicines dysphagia for solid foods Generalized anxiety disorder Plan: arrange home oxygen computed tomography scan of the head, ABG, chest x-ray Reviewed, continue supplemental oxygen recommend to use BiPAP each night and when necessary during the day continue bronchodilator and supplemental oxygen hold on steroids for now reviewed computed tomography scan of the chest without contrast, findings discussed and reviewed with the present at bedsidefor left lower lobe nodule which is 4 mm in size follow-up computed tomography scan on outpatient basis, Broad-spectrum antibiotics patient prefers IV Levaquin we'll start that Continue bronchodilators Ongoing symptoms of dysphagia with microcytic anemia appropriate to do upper endoscopy and lower endoscopy Patient needs to be supplemental home oxygen we will evaluate at time of discharge Time with Patient: Greater than 30
--- NOTE | 2023-12-04 11:33 | P.PN ---
Subjective Progress Note Date: 12/04/23 The patient is 73-year-old female who initially presented to the emergency room shortness of breath. 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 Patient was also found to have a descending colon polyps, having polypectomy and mild diverticulitis. Cardiology was notified yesterday that the patient had spontaneously gone into A. fib with RVR. 4 g of magnesium was given via bolus over 1 hour and the patient converted back to sinus rhythm. Echocardiogram has revealed Takotsubo cardiomyopathy. patient interviewed and examined lying comfortably in bed. She does awake to arousal, but complains of being very weak and fatigued.she denies any cardiac symptoms. No chest pain or difficulty breathing GENERAL: Well-appearing, well-nourished and in no acute distress. NECK: Supple without JVD or thyromegaly. LUNGS: Breath sounds clear to auscultation bilaterally. Respiration equal and unlabored. No wheezes, rales or rhonchi. HEART: Regular rate and rhythm. Systolic murmur. rubs or gallops. S1 and S2 heard. EXTREMITIES: Normal range of motion, no edema. No clubbing or cyanosis. Peripheral pulses intact and strong. TELEMETRY: sinus rhythm overnight. 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 Objective - Vital Signs Vital signs: Vital Signs Temp 97.8 F 12/04/23 08:30 Pulse 80 12/04/23 11:09 Resp 18 12/04/23 08:30 BP 147/70 12/04/23 08:30 Pulse Ox 96 12/04/23 08:30 FiO2 40 12/03/23 21:06 Intake & Output 12/03/23 12/04/23 12/04/23 18:59 06:59 18:59 Intake Total 118 Output Total 0 900 Balance 118 -900 Weight 66.5 kg Intake: Oral 118 Output: Urine 0 900 Straight 900 Other: Voiding Method Bedside Commode Bedside Commode # Bowel Movements 1 1 - Labs CBC & Chem 7: 12/04/23 05:07 12/04/23 05:07 Labs: Abnormal Lab Results - Last 24 Hours (Table) 12/03/23 12/03/23 12/04/23 Range/Units 11:32 11:32 05:07 WBC 13.0 H 12.8 H (3.8-10.6) k/uL Hgb 7.2 L 7.4 L (11.4-16.0) gm/dL Hct 27.5 L 27.9 L (34.0-46.0) % MCV 68.7 L 69.2 L (80.0-100.0) fL MCH 18.0 L 18.4 L (25.0-35.0) pg MCHC 26.3 L 26.6 L (31.0-37.0) g/dL RDW 26.0 H 27.3 H (11.5-15.5) % Plt Count 495 H 504 H (150-450) k/uL Neutrophils # 10.9 H 10.5 H (1.3-7.7) k/uL Lymphocytes # 0.8 L (1.0-4.8) k/uL Carbon Dioxide 38 H (22-30) mmol/L BUN 19 H (7-17) mg/dL Creatinine 0.46 L (0.52-1.04) mg/dL Calcium 8.0 L (8.4-10.2) mg/dL 12/04/23 Range/Units 05:07 WBC (3.8-10.6) k/uL Hgb (11.4-16.0) gm/dL Hct (34.0-46.0) % MCV (80.0-100.0) fL MCH (25.0-35.0) pg MCHC (31.0-37.0) g/dL RDW (11.5-15.5) % Plt Count (150-450) k/uL Neutrophils # (1.3-7.7) k/uL Lymphocytes # (1.0-4.8) k/uL Carbon Dioxide 37 H (22-30) mmol/L BUN 20 H (7-17) mg/dL Creatinine 0.44 L (0.52-1.04) mg/dL Calcium 8.1 L (8.4-10.2) mg/dL
[2023-12-04 12:00] VITALS: PULSE 75
--- NOTE | 2023-12-05 06:37 | CONS ---
CONSULTATION HISTORY OF PRESENT ILLNESS: Ms. Atkins was admitted with GI bleeding. She was transferred from the 6th floor on account of atrial fibrillation with RVR. An A Team was called and then subsequently I was called. A 12-lead EKG showed atrial fibrillation with a very rapid ventricular response. The ACLS protocol from the nurses apparently mandated adenosine. She got 2 doses of adenosine. Because of atrial fibrillation, there was no indication for adenosine. This protocol should be modified. The reason for tachycardia is clearly atrial fibrillation. She was symptomatic. She was short of breath at that time. I gave her IV magnesium 1 g over 60 minutes and within 15 to 20 minutes after magnesium infusion was completed, she converted back to sinus rhythm. She does take warfarin at home. HOME MEDICATIONS: Include, 1. Aspirin. 2. Jardiance. 3. Metoprolol. 4. Apixaban. 5. Zetia. 6. Rosuvastatin. 7. Inhalers. Currently, she is on Farxiga and Protonix. Aspirin is on hold. Eliquis is on hold. LABORATORY DATA: White count 36229, hemoglobin was 6.8 and now is 8.4, platelet count is elevated, actually 633,000. Electrolytes normal. BUN and creatinine are normal. Her TSH is 1.8, normal. Once she converted back to sinus rhythm, she stated that she was breathing a lot better and she looks better. PHYSICAL EXAMINATION: VITAL SIGNS: After conversion, heart rates are in the 90s with PACs and brief runs of nonsustained atrial tachycardia. Blood pressure 123/72 mmHg. CARDIAC: Heart sounds, S1, S2 are soft, normal. LUNGS: Clear. IMPRESSION: 1. Atrial fibrillation with rapid ventricular response. 2. Gastrointestinal bleeding, currently being worked up and treated for this. 3. Electrical facilitated chemical cardioversion with IV magnesium 1 g over 60 minutes. PLAN: Start amiodarone 300 mg IV over 2 hours followed by p.o. amiodarone 400 mg twice daily for suppression of atrial fibrillation in the acute phase. This may be a temporary treatment for the next 2 weeks and can be discontinued thereafter. Hold anticoagulation for now. MMODL / IJN: [id number] /
--- NOTE | 2023-12-07 19:48 | P.DS ---
Providers Date of admission: 11/30/23 12:38 Expected date of discharge: 12/04/23 Attending physician: Lorraine Penaloza Consults: 11/28/23 12:36 Consult Physician Routine Consulting Provider: Kira Stout Consult Reason/Comments: Anemia Do you want consulting provider notified?: Yes 11/28/23 23:06 Consult Physician Routine Consulting Provider: Sulaiman Mendoza Consult Reason/Comments: Pulmonary nodule Do you want consulting provider notified?: Already Contacted 12/02/23 09:19 Consult Physician Urgent Consulting Provider: Abhijeet Lyon Consult Reason/Comments: svt Do you want consulting provider notified?: Yes Primary care physician: [facility] Course: 73-year-old female with a past medical history of chronic atrial fibrillation on anticoagulation with Eliquis, coronary artery disease, COPD and prior history of smoking, fibromyalgia, hyperlipidemia, history of [place], hypothyroidism, chronic low back pain and history of back stimulator implant, history of esophageal dysmotility and difficulty swallowing for a long time and prior history of EGDs, chronic CHF with systolic dysfunction as a correct 40 to 45% presents to ER with complaints of generalized weakness, lightheadedness and shortness of breath. Patient was having difficulty swallowing due to dysmotility. Patient has been having long-term problems with the esophagus. She is on anticoagulation with Eliquis. Patient also has chronic left lower extremity swelling more than right. Patient otherwise denies any chest pain. No cough or sputum production. No fever no chills. Chest x-ray showed new 0.5 cm nodule near the left lung base. CT imaging of the chest without contrast is advised. X-ray of the soft tissue neck showed minimal grade 1 retrolisthesis C3-C4 vertebrae. Degenerative disc disease. Airways are unremarkable. Soft tissues are unremarkable. EKG showed sinus tachycardia with occasional supraventricular premature complexes. Repeat x-ray this morning showed no acute cardiopulmonary process. Cardiomegaly. Laboratory data showed WBC 12.2 hemoglobin 6.5 and platelets 562, sodium 143 potassium 4.3 chloride 108 bicarb is 29 BUN 15 and creatinine 0.63 and blood sugar is 101. Liver enzymes are not elevated. Troponin x 1 negative FOBT negative 24-hour interval change 12/03/2023 Patient is seen and evaluated with family at bedside; eager to be discharged home; remains at O2 at 4 L per nasal cannula Vital signs are reviewed and remained stable; patient remains on IV Levaquin for acute hypoxic respiratory failure and acute exacerbation of COPD possible right middle lobe pneumonia -Discussed with pulmonary service in great detail and has been cleared for discharge if remains stable -- Patient will need home O2 which is being arranged Plan for discharge home with home oxygen once all arrangements are made, likely next 24 hours 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 History of present dysmotility and chronic issues with swallowing Chronic atrial fibrillation on anticoagulation with Eliquis Chronic CHF with systolic dysfunction ejection fraction 40 to 45%. Left upper lobe 0.5 cm pulmonary nodule COPD not on home oxygen Coronary artery disease with no prior history of PCI Hypothyroidism Chronic low back pain and history of back stimulator placement History of breast cancer status post right mastectomy Prior history of smoking GI prophylaxis with PPI Status post 2 units of blood transfusion Monitor hemoglobin Transfer to select unit Started on BiPAP Monitor oxygen and CO2 level Continue with broad-spectrum antibiotic per pulmonary team Resume Eliquis per GI team. But reports patient clinical status change with starting her on Lovenox therapeutic dose. Risk of bleeding explained to the at bedside and he agrees Pulmonary and GI consult on the case Labs and medication were reviewed.. Continue same treatment. Continue with symptomatic treatment. Resume home medication. Monitor labs and vitals. DVT and GI prophylaxis. Further recommendations as per clinical course of the patient Patient Condition at Discharge: Fair Plan - Discharge Summary Discharge Rx Participant: No New Discharge Prescriptions: New Amiodarone [Cordarone] 200 mg PO BID 30 Days #60 tab Atorvastatin [Lipitor] 80 mg PO DAILY 30 Days #30 tab Metoprolol Tartrate [Lopressor] 100 mg PO BID 30 Days #60 tab Losartan [Cozaar] 12.5 mg PO DAILY 30 Days #30 tab Ferrous Sulfate [Iron (65 MG Elemental)] 325 mg PO BID-W/MEALS tab Levofloxacin [Levaquin] 500 mg PO Q24H 5 Days #5 tab Continue Ezetimibe [Zetia] 10 mg PO HS Apixaban [Eliquis] 5 mg PO BID #0 tab Pantoprazole Sodium [Protonix] 40 mg PO HS Vit C/E/Zn/Coppr/Lutein/Zeaxan [Preservision Areds 2 Softgel] 1 cap PO BID Ipratropium-Albuterol Nebulize [Duoneb 0.5 mg-3 mg/3 ml Soln] 3 ml INHALATION RT-QID PRN PRN Reason: Shortness Of Breath Empagliflozin [Jardiance] 10 mg PO DAILY Acetaminophen/Diphenhydramine [Tylenol PM 500-25mg] 1 tab PO HS Aspirin EC [Ecotrin Low Dose] 81 mg PO DAILY Discontinued Rosuvastatin Calcium [Crestor] 40 mg PO DAILY Metoprolol Tartrate [Lopressor] 75 mg PO BID Discharge Medication List Ezetimibe [Zetia] 10 mg PO HS 07/02/17 [History] Apixaban [Eliquis] 5 mg PO BID #0 tab 02/16/19 [Rx] Pantoprazole Sodium [Protonix] 40 mg PO HS 02/13/21 [History] Vit C/E/Zn/Coppr/Lutein/Zeaxan [Preservision Areds 2 Softgel] 1 cap PO BID 02/13/21 [History] Acetaminophen/Diphenhydramine [Tylenol PM 500-25mg] 1 tab PO HS 11/28/23 [History] Aspirin EC [Ecotrin Low Dose] 81 mg PO DAILY 11/28/23 [History] Empagliflozin [Jardiance] 10 mg PO DAILY 11/28/23 [History] Ipratropium-Albuterol Nebulize [Duoneb 0.5 mg-3 mg/3 ml Soln] 3 ml INHALATION RT-QID PRN 11/28/23 [History] Amiodarone [Cordarone] 200 mg PO BID 30 Days #60 tab 12/04/23 [Rx] Atorvastatin [Lipitor] 80 mg PO DAILY 30 Days #30 tab 12/04/23 [Rx] Ferrous Sulfate [Iron (65 MG Elemental)] 325 mg PO BID-W/MEALS tab 12/04/23 [Rx] Levofloxacin [Levaquin] 500 mg PO Q24H 5 Days #5 tab 12/04/23 [Rx] Losartan [Cozaar] 12.5 mg PO DAILY 30 Days #30 tab 12/04/23 [Rx] Metoprolol Tartrate [Lopressor] 100 mg PO BID 30 Days #60 tab 12/04/23 [Rx] Follow up Appointment(s)/Referral(s): Kumar Stanford MD [STAFF PHYSICIAN] - 1 Week Fortino Souza DO [Primary Care Provider] - 1-2 days [facility] [NON-STAFF] - As Needed (to deliver portable 02 and home concentrator any questions please all agency) Sulaiman Mendoza MD [STAFF PHYSICIAN] - 10 Days Patient Instructions/Handouts: A-fib (Atrial Fibrillation) (DC), Using Oxygen at Home (DC), COPD (Chronic Obstructive Pulmonary Disease) (DC), Anemia (DC) Activity/Diet/Wound Care/Special Instructions: heart healthy diet activity limited until follow up Discharge Disposition: HOME SELF-CARE
== END 2023-12-04 12:14 | disposition home or self-care (01) | DRG 377 ==
LOC: EC 21:54 → 6NMEDSUR 11-28 04:56 → OBSVTOIN 11-30 12:38 → 3SCARD 12-01 16:29
PROVIDERS: ADMIT Hospitalist; ATTEND Hospitalist
PROC: 30233N1 Transfusion of Nonautologous Red Blood Cells into Peripheral Vein, Percutaneous Approach (ICD-10-PCS; principal; 2023-11-28)
PROC: 0DBM8ZX Excision of Descending Colon, Via Natural or Artificial Opening Endoscopic, Diagnostic (ICD-10-PCS; 2023-11-30)
PROC: 0W3P8ZZ Control Bleeding in Gastrointestinal Tract, Via Natural or Artificial Opening Endoscopic (ICD-10-PCS; 2023-11-30)
PROC: 05HF33Z Insertion of Infusion Device into Left Cephalic Vein, Percutaneous Approach (ICD-10-PCS; 2023-11-30 12:25)
PROC: 5A09357 Assistance with Respiratory Ventilation, Less than 24 Consecutive Hours, Continuous Positive Airway Pressure (ICD-10-PCS; 2023-12-01)
PROC: 3E033RZ Introduction of Antiarrhythmic into Peripheral Vein, Percutaneous Approach (ICD-10-PCS; 2023-12-02)
DX: K31.811 Angiodysplasia of stomach and duodenum with bleeding (principal); J18.9 Pneumonia, unspecified organism; J96.01 Acute respiratory failure with hypoxia; J96.02 Acute respiratory failure with hypercapnia; I50.22 Chronic systolic (congestive) heart failure; I51.81 Takotsubo syndrome; J98.19 Other pulmonary collapse; I47.19 Other supraventricular tachycardia; J44.0 Chronic obstructive pulmonary disease with (acute) lower respiratory infection; J44.1 Chronic obstructive pulmonary disease with (acute) exacerbation; D50.0 Iron deficiency anemia secondary to blood loss (chronic); R13.10 Dysphagia, unspecified; R91.1 Solitary pulmonary nodule; I25.10 Atherosclerotic heart disease of native coronary artery without angina pectoris; E03.9 Hypothyroidism, unspecified; G89.29 Other chronic pain; M54.50 Low back pain, unspecified; I48.0 Paroxysmal atrial fibrillation; K57.30 Diverticulosis of large intestine without perforation or abscess without bleeding; M50.30 Other cervical disc degeneration, unspecified cervical region; M43.12 Spondylolisthesis, cervical region; D12.4 Benign neoplasm of descending colon; M79.7 Fibromyalgia; K21.9 Gastro-esophageal reflux disease without esophagitis; E78.5 Hyperlipidemia, unspecified; M19.90 Unspecified osteoarthritis, unspecified site; J43.9 Emphysema, unspecified; F41.1 Generalized anxiety disorder; K58.9 Irritable bowel syndrome, unspecified; Z79.01 Long term (current) use of anticoagulants; Z87.891 Personal history of nicotine dependence; Z85.3 Personal history of malignant neoplasm of breast; Z90.11 Acquired absence of right breast and nipple; Z79.899 Other long term (current) drug therapy; Z79.84 Long term (current) use of oral hypoglycemic drugs; Z79.82 Long term (current) use of aspirin; I25.2 Old myocardial infarction; Z87.01 Personal history of pneumonia (recurrent); Z96.82 Presence of neurostimulator
CPT/HCPCS: 36410; 36415; 36430; 36600; 43255; 45385; 70360; 70450; 71045; 71046; 71250; 76937; 80048; 80053; 82272; 82607; 82728; 82747; 82805; 83540; 83550; 83605; 83880; 84145; 84443; 84484; 85025; 85027; 85610; 85730; 86850; 86870; 86880; 86900; 86901; 86902; 86920; 88305; 93005; 93306; 94640; 94660; 94760; 96374; 96375; 99291

== ENCOUNTER 2024-03-18 15:07 | Emergency (ER) | payer MEDICARE, BC ==
[2024-03-18 15:11] VITALS: TEMP 97.9
--- NOTE | 2024-03-18 15:32 | ED ---
General Adult HPI - General Chief complaint: Chest Pain Stated complaint: Chest pain Time Seen by Provider: 03/18/24 15:15 Source: patient, RN notes reviewed Mode of arrival: ambulatory Limitations: no limitations - History of Present Illness Initial comments: 73-year-old female presents to the emergency department for evaluation of left- sided chest discomfort and epigastric abdominal discomfort. Patient states that she has been experiencing this on and off for quite a while. She notes that today the pain occurred while she was cooking dinner and felt like spasms in her chest. She notes that this occurred multiple times in a row. She states that the discomfort was more severe and lasted longer than usual. She does state that it has seemed to improve somewhat. She attributes this pain to gas pain. She denies any shortness of breath, diaphoresis, fever, chills, cough, congestion. Reports normal bowel movements. - Related Data Home Medications Medication Instructions Recorded Confirmed Ezetimibe [Zetia] 10 mg PO HS@189907/02/17 03/18/24 Vit C/E/Zn/Coppr/Lutein/Zeaxan 1 cap PO BID@699,189902/13/21 03/18/24 [Preservision Areds 2 Softgel] Empagliflozin [Jardiance] 10 mg PO DAILY@69911/28/23 03/18/24 Ipratropium-Albuterol Nebulize 3 ml INHALATION RT-QID PRN 11/28/23 03/18/24 [Duoneb 0.5 mg-3 mg/3 ml Soln] Apixaban [Eliquis] 5 mg PO BID@699,189903/18/24 03/18/24 Fluticasone Propion/Salmeterol 1 puff INHALATION RT-BID@699,189903/18/24 03/18/24 [Fluticasone-Salmeterol 250-50] Metoprolol Tartrate [Lopressor] 25 mg PO DIRECTED@03/18/24 03/18/24 Metoprolol Tartrate [Lopressor] 75 mg PO DIRECTED@03/18/24 03/18/24 Rosuvastatin Calcium [Crestor] 40 mg PO DIRECTED@69903/18/24 03/18/24 Sacubitril/Valsartan [Entresto 24 1 tab PO DIRECTED@,19 03/18/24 03/18/24 mg-26 mg Tablet] Vitamin D3 50mcg Gummy 50 mcg PO DAILY@0700 03/18/24 03/18/24 Allergies Allergy/AdvReac Type Severity Reaction Status Date / Time adhesive tape Allergy Rash/Hives Verified 03/18/24 17:58 amoxicillin trihydrate Allergy Itching Verified 03/18/24 17:58 [From Augmentin] calcium Allergy Burning on Verified 03/18/24 17:58 inside itching on outside Cephalosporins Allergy Burning on Verified 03/18/24 17:58 inside -itching on outside clarithromycin [From Biaxin] Allergy burning on Verified 03/18/24 17:58 inside, itching on outside loratadine [From Claritin] Allergy Burning on Verified 03/18/24 17:58 inside- itching on outside NSAIDS (Non-Steroidal Allergy Burning on Verified 03/18/24 17:58 Anti-Inflamma inside-itching on outside potassium clavulanate Allergy Itching Verified 03/18/24 17:58 [From Augmentin] prednisone Allergy Burning on Verified 03/18/24 17:58 inside -itching on outside soy Allergy Burning on Verified 03/18/24 17:58 inside - itching on outside sulfamethoxazole Allergy Burning on Verified 03/18/24 17:58 [From Bactrim] inside -itching on outside tramadol HCl [From Ultram] Allergy Burning on Verified 03/18/24 17:58 inside -itching on outside trimethoprim [From Bactrim] Allergy Burning on Verified 03/18/24 17:58 inside -itching on outside steroids Allergy Burning on Uncoded 03/18/24 17:58 inside-itching on outside Review of Systems ROS Statement: Those systems with pertinent positive or pertinent negative responses have been documented in the HPI. ROS Other: All systems not noted in ROS Statement are negative. Past Medical History Past Medical History: Atrial Fibrillation, Asthma, Coronary Artery Disease (CAD), Cancer, Chest Pain / Angina, COPD, Fibromyalgia, GERD/Reflux, Hyperlipidemia, Myocardial Infarction (TX), Osteoarthritis (OA), Pneumonia, Thyroid Disorder Additional Past Medical History / Comment(s): HX PVC'S, IBS, CHRONIC LOW BACK PAIN RADIATING INTO RODRICK THIGHS-BULGING CERVICAL DISC, RT BREAST CA, back stimulator implant, hx hiatal hernia, hx ulcer, small thyroid nodules, lymphedema rt arm (No IV BP rt arm), "feel a vibration in esophagus when cough or sneeze", oc hurts when food goes down,indigestion and heartburn, on steroids for "ear pressure"(states Dr Stout aware) Last Myocardial Infarction Date:: 1997 History of Any Multi-Drug Resistant Organisms: None Reported Past Surgical History: Breast Surgery, Section, Cholecystectomy, Heart Catheterization, Hernia Repair Additional Past Surgical History / Comment(s): garrick fundlaplasty, MASTECTOMY RT BREAST, MANIPULATION LT ARM, left ROATOR CUFF,STRABISMUS EYE SURGERY, CTR LT WRIST,LT GREAT TOE HAS T SHAPED INPLANT IN, D&C, Past Anesthesia/Blood Transfusion Reactions: Previous Problems w/ Anesthesia Additional Past Anesthesia/Blood Transfusion Reaction / Comment(s): patient and mom-hard time coming out of it Past Psychological History: No Psychological Hx Reported Smoking Status: Former smoker - Past Family History Mother Family Medical History: Deep Vein Thrombosis (DVT), Pulmonary Embolus Additional Family Medical History / Comment(s): . General Exam Limitations: no limitations General appearance: alert, in no apparent distress Head exam: Present: atraumatic, normocephalic, normal inspection Eye exam: Present: normal appearance, PERRL, EOMI. Absent: scleral icterus, conjunctival injection, periorbital swelling ENT exam: Present: normal exam, mucous membranes moist Neck exam: Present: normal inspection. Absent: tenderness, meningismus, lymphadenopathy Respiratory exam: Present: normal lung sounds bilaterally. Absent: respiratory distress, wheezes, rales, rhonchi, stridor Cardiovascular Exam: Present: regular rate, normal rhythm, normal heart sounds. Absent: systolic murmur, diastolic murmur, rubs, gallop, clicks GI/Abdominal exam: Present: soft. Absent: distended, tenderness, guarding, rebound, rigid Extremities exam: Present: normal inspection, full ROM, normal capillary refill. Absent: tenderness, pedal edema, joint swelling, calf tenderness Back exam: Present: normal inspection Neurological exam: Present: alert, oriented X3 Psychiatric exam: Present: normal affect, normal mood Skin exam: Present: warm, dry, intact, normal color. Absent: rash Course Vital Signs 03/18/24 03/18/24 03/18/24 15:08 16:10 19:45 Temperature 97.9 F Pulse Rate 96 102 H Pulse Rate [ 96 Workers Compensation Analyst ] Respiratory 16 18 Rate Blood Pressure 136/97 126/94 O2 Sat by Pulse 95 100 Oximetry 03/18/24 21:09 Temperature Pulse Rate 98 Pulse Rate [ Workers Compensation Analyst ] Respiratory 18 Rate Blood Pressure 141/96 O2 Sat by Pulse 100 Oximetry Medical Decision Making - Medical Decision Making Was pt. sent in by a medical professional or institution (, PA, [employer], urgent care, hospital, or usp...) When possible be specific @ -No Did you speak to anyone other than the patient for history (EMS, parent, family, police, friend...)? What history was obtained from this source @ -No Did you review nursing and triage notes (agree or disagree)? Why? @ -I reviewed and agree with nursing and triage notes Were old charts reviewed (outside hosp., previous admission, EMS record, old EKG, old radiological studies, urgent care reports/EKG's, usp records)? Report findings @ -No old charts were reviewed Differential Diagnosis (chest pain, altered mental status, abdominal pain women, abdominal pain men, vaginal bleeding, weakness, fever, dyspnea, syncope, headache, dizziness, GI bleed, back pain, seizure, CVA, palpatations, mental health, musculoskeletal)? @ -Differential Chest Pain: Stable Angina, Unstable Angina, STEMI, NSTEMI Aortic Dissection, Pneumothorax, Musculoskeletal, Esophageal Spasm GERD, Cholecystitis, Pancreatitis, Zoster, this is not meant to be an all-inclusive list. EKG interpreted by me (3pts min.). @ -EKG at 1610 shows sinus rhythm with sinus arrhythmia rate 83, WI 140, QRS 133, QTQTc [id number] X-rays interpreted by me (1pt min.). @ -Chest x-ray shows opacity representing possible scarring in the left midlung CT interpreted by me (1pt min.). @ -None done U/S interpreted by me (1pt. min.). @ -None done What testing was considered but not performed or refused? (CT, X-rays, U/S, labs)? Why? @ -None What meds were considered but not given or refused? Why? @ -None Did you discuss the management of the patient with other professionals (professionals i.e. , PA, [employer], lab, RT, psych nurse, addiction social worker, plate hanger, teacher, chief creative officer, community case manager)? Give summary @ -No Was smoking cessation discussed for >3mins.? @ -No Was critical care preformed (if so, how long)? @ -No Were there social determinants of health that impacted care today? How? (Homelessness, low income, unemployed, alcoholism, drug addiction, transportation, low edu. Level, literacy, decrease access to med. care, half-way, rehab)? @ -No Was there de-escalation of care discussed even if they declined (Discuss DNR or withdrawal of care, Hospice)? DNR status @ -No What co-morbidities impacted this encounter? (DM, HTN, Smoking, COPD, CAD, Cancer, CVA, ARF, Chemo, Hep., AIDS, mental health diagnosis, sleep apnea, morbid obesity)? @ -Smoking history, CAD Was patient admitted / discharged? Hospital course, mention meds given and route, prescriptions, significant lab abnormalities, going to OR and other pertinent info. @ -Discharge. Patient presented to the emergency department for evaluation of chest pain. She states that this has been on and off for quite some time but notes it lasted longer today. She attributes this to gas pains. EKG was performed upon the patient's arrival which shows sinus rhythm with sinus arrhythmia with no acute ST or T wave changes. Her EKG today was compared to prior EKGs and is comparable. Laboratory studies were obtained.Patient has mild leukocytosis with a white count of 11.8; normal coagulation studies, initial troponin was negative at less than 0.012. X-ray shows left midlung opacity representing possible scarring, this was compared to prior chest CTs it appears to be consistent. Discussed these initial findings with the patient and plan for admission, patient was reluctant to be admitted to the hospital for obser vation. Patient was provided a GI cocktail which improved her symptoms. Discussed performing a second troponin at the 3-hour rivera. This was obtained and was also negative. Again offered admission to the patient but she declined and wanted to be discharged home. Discussed strict return precautions. Advised her to follow-up with her molder setter. Patient is understanding and agreeable with discharge plan. Patient stable at time of discharge. Case discussed with Dr. Ceballos Undiagnosed new problem with uncertain prognosis? @ -No Drug Therapy requiring intensive monitoring for toxicity (Heparin, Nitro, Insulin, Cardizem)? @ -No Were any procedures done? @ -No Diagnosis/symptom? @ -Chest pain, esophageal spasm Acute, or Chronic, or Acute on Chronic? @ -acute Uncomplicated (without systemic symptoms) or Complicated (systemic symptoms)? @ -uncomplicated Side effects of treatment? @ -No Exacerbation, Progression, or Severe Exacerbation? @ -No Poses a threat to life or bodily function? How? (Chest pain, [place], [place], pneumonia, PE, COPD, DKA, ARF, appy, cholecystitis, CVA, Diverticulitis, Homicidal, Suicidal, threat to staff... and all critical care pts) @ -No - Lab Data Result diagrams: 03/18/24 16:30 03/18/24 16:30 Lab Results 03/18/24 03/18/24 03/18/24 Range/Units 16:30 16:30 16:30 WBC 11.8 H (3.8-10.6) k/uL RBC 4.71 (3.80-5.40) m/uL Hgb 12.8 (11.4-16.0) gm/dL Hct 39.8 (34.0-46.0) % MCV 84.6 (80.0-100.0) fL MCH 27.1 (25.0-35.0) pg MCHC 32.1 (31.0-37.0) g/dL RDW 17.0 H (11.5-15.5) % Plt Count 227 (150-450) k/uL MPV 7.0 Neutrophils % 79 % Lymphocytes % 12 % Monocytes % 6 % Eosinophils % 1 % Basophils % 0 % Neutrophils # 9.3 H (1.3-7.7) k/uL Lymphocytes # 1.4 (1.0-4.8) k/uL Monocytes # 0.7 (0-1.0) k/uL Eosinophils # 0.1 (0-0.7) k/uL Basophils # 0.0 (0-0.2) k/uL Hypochromasia Slight Anisocytosis Slight PT 10.7 (10.0-12.5) sec INR 1.0 (<1.2) APTT 28.5 (22.0-30.0) sec Sodium 139 (137-145) mmol/L Potassium 4.3 (3.5-5.1) mmol/L Chloride 106 (98-107) mmol/L Carbon Dioxide 30 (22-30) mmol/L Anion Gap 3 mmol/L BUN 15 (7-17) mg/dL Creatinine 0.62 (0.52-1.04) mg/dL Est GFR (CKD-EPI)AfAm >90 (>60 ml/min/1.73 sqM) Est GFR (CKD-EPI)NonAf 89 (>60 ml/min/1.73 sqM) Glucose 96 (74-99) mg/dL Calcium 9.2 (8.4-10.2) mg/dL Magnesium 2.4 H (1.6-2.3) mg/dL Total Bilirubin 0.4 (0.2-1.3) mg/dL AST 43 H (14-36) U/L ALT 42 H (4-34) U/L Alkaline Phosphatase 94 (38-126) U/L Troponin I (0.000-0.034) ng/mL Total Protein 7.2 (6.3-8.2) g/dL Albumin 4.2 (3.5-5.0) g/dL 03/18/24 03/18/24 Range/Units 16:30 20:04 WBC (3.8-10.6) k/uL RBC (3.80-5.40) m/uL Hgb (11.4-16.0) gm/dL Hct (34.0-46.0) % MCV (80.0-100.0) fL MCH (25.0-35.0) pg MCHC (31.0-37.0) g/dL RDW (11.5-15.5) % Plt Count (150-450) k/uL MPV Neutrophils % % Lymphocytes % % Monocytes % % Eosinophils % % Basophils % % Neutrophils # (1.3-7.7) k/uL Lymphocytes # (1.0-4.8) k/uL Monocytes # (0-1.0) k/uL Eosinophils # (0-0.7) k/uL Basophils # (0-0.2) k/uL Hypochromasia Anisocytosis PT (10.0-12.5) sec INR (<1.2) APTT (22.0-30.0) sec Sodium (137-145) mmol/L Potassium (3.5-5.1) mmol/L Chloride (98-107) mmol/L Carbon Dioxide (22-30) mmol/L Anion Gap mmol/L BUN (7-17) mg/dL Creatinine (0.52-1.04) mg/dL Est GFR (CKD-EPI)AfAm (>60 ml/min/1.73 sqM) Est GFR (CKD-EPI)NonAf (>60 ml/min/1.73 sqM) Glucose (74-99) mg/dL Calcium (8.4-10.2) mg/dL Magnesium (1.6-2.3) mg/dL Total Bilirubin (0.2-1.3) mg/dL AST (14-36) U/L ALT (4-34) U/L Alkaline Phosphatase (38-126) U/L Troponin I <0.012 <0.012 (0.000-0.034) ng/mL Total Protein (6.3-8.2) g/dL Albumin (3.5-5.0) g/dL Disposition Clinical Impression: Esophageal spasm, Chest pain Disposition: HOME SELF-CARE Condition: Stable Instructions (If sedation given, give patient instructions): Chest Pain (ED) Additional Instructions: Please follow-up with your primary care provider. Return to the emergency department for new or worsening symptoms. Is patient prescribed a controlled substance at d/c from ED?: No Referrals: Fortino Souza DO [Primary Care Provider] - 1-2 days
[2024-03-18 16:41] LABS: Anisocytosis Slight; Basophils % (A) 0 %; Eosinophils # (A) 0.1 k/uL (0-0.7); Eosinophils % (A) 1 %; HCT 39.8 % (34.0-46.0); HGB 12.8 gm/dL (11.4-16.0); Hypochromasia Slight; Lymphocytes # (A) 1.4 k/uL (1.0-4.8); Lymphocytes % (A) 12 %; MCH 27.1 pg (25.0-35.0); MCHC 32.1 g/dL (31.0-37.0); MCV 84.6 fL (80.0-100.0); Monocytes # (A) 0.7 k/uL (0-1.0); Monocytes % (A) 6 %; Neutrophils # (A) 9.3 k/uL (1.3-7.7); Neutrophils % (A) 79 %; Platelet Count 227 k/uL (150-450); RBC 4.71 m/uL (3.80-5.40); WBC 11.8 k/uL (3.8-10.6)
[2024-03-18 16:49] LABS: Partial Thromboplastin Time 28.5 sec (22.0-30.0); Prothrombin Time 10.7 sec (10.0-12.5)
--- NOTE | 2024-03-18 16:49 | XR ---
EXAMINATION TYPE: XR chest 2V DATE OF EXAM: 03/18/2024 COMPARISON: 12/01/2023 INDICATION: Chest pain TECHNIQUE: Frontal and lateral views of the chest are obtained. FINDINGS: The heart size is normal. The pulmonary vasculature is normal. No suspicious focal trait is evident. Some scarring may be within the left midlung. IMPRESSION: 1. No acute pulmonary process. 2. Linear opacity left mid lung may be scarring [facility], Workstation: [facility], 03/18/2024 4:46 PM
[2024-03-18 16:53] LABS: ALT 42 U/L (4-34); AST 43 U/L (14-36); African American GFR (CKD) >90 (>60 ml/min/1.73 sqM); Albumin 4.2 g/dL (3.5-5.0); Alkaline Phosphatase 94 U/L (38-126); Anion Gap 3 mmol/L; Blood Urea Nitrogen 15 mg/dL (7-17); Calcium 9.2 mg/dL (8.4-10.2); Carbon Dioxide 30 mmol/L (22-30); Chloride 106 mmol/L (98-107); Glucose 96 mg/dL (74-99); Magnesium 2.4 mg/dL (1.6-2.3); Non-African American GFR(CKD) 89 (>60 ml/min/1.73 sqM); Potassium 4.3 mmol/L (3.5-5.1); Sodium 139 mmol/L (137-145); Total Bilirubin 0.4 mg/dL (0.2-1.3); Total Protein 7.2 g/dL (6.3-8.2)
[2024-03-18] MEDS: MAG HYDROX/AL HYDROX/SIMETH 30 ML, HYOSCYAMINE ELIXIR 10 ML, LIDOCAINE VISCOUS 2% 10 ML PO STA (18:01)
[2024-03-18 20:50] VITALS: RESP 18
[2024-03-18 21:10] VITALS: BP 141/96; PULSE 98
== END 2024-03-18 21:10 | disposition home or self-care (01) ==
LOC: EC 15:07
DX: K22.4 Dyskinesia of esophagus (principal); R07.89 Other chest pain; Z87.891 Personal history of nicotine dependence; Z88.0 Allergy status to penicillin; Z88.1 Allergy status to other antibiotic agents; Z88.2 Allergy status to sulfonamides; Z88.6 Allergy status to analgesic agent
CPT/HCPCS: 36415; 71046; 80053; 83735; 84484; 85025; 85610; 85730; 93005; 99285

== ENCOUNTER 2024-05-08 04:40 | Emergency (ER) | payer MEDICARE, BC ==
--- NOTE | 2024-05-08 04:54 | ED ---
Recheck HPI - General Chief Complaint: Vaginal Bleeding Stated Complaint: anemic, bleeding pelviv area Time Seen by Provider: 05/08/24 04:42 Source: patient, RN notes reviewed, old records reviewed Mode of arrival: ambulatory Limitations: no limitations - History of Present Illness Initial Comments: This is a 73 female to the ER for evaluation of bleeding. Patient has active vaginal bleeding no believes that she has active vaginal bleeding currently. She is on Eliquis considered for moderate bleeding. She has history of transfusion. Bleeding does appear to be more spotting per history and no current active bleeding noted MD Complaint: other (Patient believes she is having vaginal bleeding) -: hour(s) Symptoms Since Prior Visit: no new symptoms Context: planned re-check Associated Symptoms: none - Related Data Home Medications Medication Instructions Recorded Confirmed Ezetimibe [Zetia] 10 mg PO HS@1900 07/02/17 03/18/24 Vit C/E/Zn/Coppr/Lutein/Zeaxan 1 cap PO BID@0700,19002/13/21 03/18/24 [Preservision Areds 2 Softgel] Empagliflozin [Jardiance] 10 mg PO DAILY@0700 11/28/23 03/18/24 Ipratropium-Albuterol Nebulize 3 ml INHALATION RT-QID PRN 11/28/23 03/18/24 [Duoneb 0.5 mg-3 mg/3 ml Soln] Apixaban [Eliquis] 5 mg PO BID@0700,1900 03/18/24 03/18/24 Fluticasone Propion/Salmeterol 1 puff INHALATION RT-BID@07,189903/18/24 03/18/24 [Fluticasone-Salmeterol 250-50] Metoprolol Tartrate [Lopressor] 25 mg PO DIRECTED@03/18/24 03/18/24 Metoprolol Tartrate [Lopressor] 75 mg PO DIRECTED@03/18/24 03/18/24 Rosuvastatin Calcium [Crestor] 40 mg PO DIRECTED@0703/18/24 03/18/24 Sacubitril/Valsartan [Entresto 24 1 tab PO DIRECTED@03/18/24 03/18/24 mg-26 mg Tablet] Vitamin D3 50mcg Gummy 50 mcg PO DAILY@0700 03/18/24 03/18/24 Allergies Allergy/AdvReac Type Severity Reaction Status Date / Time adhesive tape Allergy Rash/Hives Verified 05/08/24 04:47 amoxicillin trihydrate Allergy Itching Verified 05/08/24 04:47 [From Augmentin] calcium Allergy Burning on Verified 05/08/24 04:47 inside itching on outside Cephalosporins Allergy Burning on Verified 05/08/24 04:47 inside -itching on outside clarithromycin [From Biaxin] Allergy burning on Verified 05/08/24 04:47 inside, itching on outside loratadine [From Claritin] Allergy Burning on Verified 05/08/24 04:47 inside- itching on outside NSAIDS (Non-Steroidal Allergy Burning on Verified 05/08/24 04:47 Anti-Inflamma inside-itching on outside potassium clavulanate Allergy Itching Verified 05/08/24 04:47 [From Augmentin] prednisone Allergy Burning on Verified 05/08/24 04:47 inside -itching on outside soy Allergy Burning on Verified 05/08/24 04:47 inside - itching on outside sulfamethoxazole Allergy Burning on Verified 05/08/24 04:47 [From Bactrim] inside -itching on outside tramadol HCl [From Ultram] Allergy Burning on Verified 05/08/24 04:47 inside -itching on outside trimethoprim [From Bactrim] Allergy Burning on Verified 05/08/24 04:47 inside -itching on outside steroids Allergy Burning on Uncoded 05/08/24 04:47 inside-itching on outside Review of Systems ROS Statement: Those systems with pertinent positive or pertinent negative responses have been documented in the HPI. ROS Other: All systems not noted in ROS Statement are negative. Past Medical History Past Medical History: Atrial Fibrillation, Asthma, Coronary Artery Disease (CAD), Cancer, Chest Pain / Angina, COPD, Fibromyalgia, GERD/Reflux, Hyperlipidemia, Myocardial Infarction (RI), Osteoarthritis (OA), Pneumonia, Thyroid Disorder Additional Past Medical History / Comment(s): HX PVC'S, IBS, CHRONIC LOW BACK PAIN RADIATING INTO RODRICK THIGHS-BULGING CERVICAL DISC, RT BREAST CA, back stimulator implant, hx hiatal hernia, hx ulcer, small thyroid nodules, lymphedema rt arm (No IV BP rt arm), "feel a vibration in esophagus when cough or sneeze", oc hurts when food goes down,indigestion and heartburn, on steroids for "ear pressure"(states Dr Stout aware) Last Myocardial Infarction Date:: 1997 History of Any Multi-Drug Resistant Organisms: None Reported Past Surgical History: Breast Surgery, Section, Cholecystectomy, Heart Catheterization, Hernia Repair Additional Past Surgical History / Comment(s): garrick fundlaplasty, MASTECTOMY RT BREAST, MANIPULATION LT ARM, left ROATOR CUFF,STRABISMUS EYE SURGERY, CTR LT WRIST,LT GREAT TOE HAS T SHAPED INPLANT IN, D&C, Past Anesthesia/Blood Transfusion Reactions: Previous Problems w/ Anesthesia Additional Past Anesthesia/Blood Transfusion Reaction / Comment(s): patient and mom-hard time coming out of it Past Psychological History: No Psychological Hx Reported Smoking Status: Former smoker Past Alcohol Use History: None Reported Past Drug Use History: None Reported - Past Family History Mother Family Medical History: Deep Vein Thrombosis (DVT), Pulmonary Embolus Additional Family Medical History / Comment(s): . General Exam Limitations: no limitations General appearance: alert, in no apparent distress Head exam: Present: atraumatic, normocephalic, normal inspection Eye exam: Present: normal appearance, PERRL, EOMI. Absent: scleral icterus, conjunctival injection, periorbital swelling ENT exam: Present: normal exam, mucous membranes moist Neck exam: Present: normal inspection. Absent: tenderness, meningismus, lymphadenopathy Respiratory exam: Present: normal lung sounds bilaterally. Absent: respiratory distress, wheezes, rales, rhonchi, stridor Cardiovascular Exam: Present: regular rate, normal rhythm, normal heart sounds. Absent: systolic murmur, diastolic murmur, rubs, gallop, clicks GI/Abdominal exam: Present: soft, normal bowel sounds. Absent: distended, tenderness, guarding, rebound, rigid Extremities exam: Present: normal inspection, full ROM, normal capillary refill. Absent: tenderness, pedal edema, joint swelling, calf tenderness Back exam: Present: normal inspection Neurological exam: Present: alert, oriented X3, CN II-XII intact Psychiatric exam: Present: normal affect, normal mood Skin exam: Present: warm, dry, intact, normal color. Absent: rash Course Vital Signs 05/08/24 05/08/24 04:47 06:07 Temperature 97.3 F L Pulse Rate 77 74 Respiratory 22 16 Rate Blood Pressure 142/81 153/96 O2 Sat by Pulse 95 97 Oximetry - Reevaluation(s) Reevaluation #1: 05/08/24 06:11 Medical records reviewed Reevaluation #2: 05/08/24 06:11 Patient symptoms unchanged, no significant active bleeding Reevaluation #3: 05/08/24 06:11 Patient informed of results and questions answered Reevaluation #4: 05/08/24 06:11 Was pt. sent in by a medical professional or institution (, SHEREEN, STEAMTABLE WORKER, urgent care, hospital, or custodial...) When possible be specific @ -no Did you speak to anyone other than the patient for history (EMS, parent, family, police, friend...)? What history was obtained from this source @ -no Did you review nursing and triage notes (agree or disagree)? Why? @ -agree Are old charts reviewed (outside hosp., previous admission, EMS record, old EKG, old radiological studies, urgent care reports/EKG's, custodial records)? Report findings @ -yes Differential Diagnosis (chest pain, altered mental status, abdominal pain women, abdominal pain men, vaginal bleeding, weakness, fever, dyspnea, syncope, headache, dizziness, GI bleed, back pain, seizure, CVA, palpatations, mental health, musculoskeletal)? @ -prior EKG interpreted by me (3pts min.). @ -yes X-rays interpreted by me (1pt min.). @ -yes negative for acute disease CT interpreted by me (1pt min.). @ -no U/S interpreted by me (1pt. min.). @ -no What testing was considered but not performed or refused? (CT, X-rays, U/S, labs)? Why? @ -none What meds were considered but not given or refused? Why? @ -none Did you discuss the management of the patient with other professionals (professionals i.e. SHEREEN Gamez, STEAMTABLE WORKER, lab, RT, psych nurse, mental health social worker, sales operations assistant, teacher, commanding officer homicide squad, ed case manager)? Give summary @ -no Was smoking cessation discussed for >3mins.? @ -no Was critical care preformed (if so, how long)? @ -no Were there social determinants of health that impacted care today? How? (Homelessness, low income, unemployed, alcoholism, drug addiction, transportation, low edu. Level, literacy, decrease access to med. care, long term, rehab)? @ -none Was there de-escalation of care discussed even if they declined (Discuss DNR or withdrawal of care, Hospice)? DNR status @ -no What co-morbidities impacted this encounter? (DM, HTN, Smoking, COPD, CAD, Cancer, CVA, ARF, Chemo, Hep., AIDS, mental health diagnosis, sleep apnea, morbid obesity)? @ -none Was patient admitted / discharged? Hospital course, mention meds given and route, prescriptions, significant lab abnormalities, going to OR and other pertinent info. @ - Undiagnosed new problem with uncertain prognosis? @ -no Drug Therapy requiring intensive monitoring for toxicity (Heparin, Nitro, Insulin, Cardizem)? @ -no Were any procedures done? @ -no Diagnosis/symptom? @ - Acute, or Chronic, or Acute on Chronic? @ -Acute Uncomplicated (without systemic symptoms) or Complicated (systemic symptoms)? @ -Complicated Side effects of treatment? @ -no Exacerbation, Progression, or Severe Exacerbation? @ -exacerbation Poses a threat to life or bodily function? How? (Chest pain, USA, RI, pneumonia, PE, COPD, DKA, ARF, appy, cholecystitis, CVA, Diverticulitis, Homicidal, Suicidal, threat to staff... and all critical care pts) @ -yes Medical Decision Making - Medical Decision Making 73 female to the ER for evaluation of what she believes is vaginal bleeding. No active bleeding noted here in the ER hemoglobin is normal patient can be discharged home - Lab Data Result diagrams: 05/08/24 04:54 05/08/24 04:54 Lab Results 05/08/24 05/08/24 05/08/24 Range/Units 04:54 04:54 04:54 WBC 5.6 (3.8-10.6) k/uL RBC 5.23 (3.80-5.40) m/uL Hgb 14.4 (11.4-16.0) gm/dL Hct 45.3 (34.0-46.0) % MCV 86.7 (80.0-100.0) fL MCH 27.5 (25.0-35.0) pg MCHC 31.8 (31.0-37.0) g/dL RDW 16.5 H (11.5-15.5) % Plt Count 302 (150-450) k/uL MPV 7.3 Neutrophils % 54 % Lymphocytes % 33 % Monocytes % 7 % Eosinophils % 2 % Basophils % 0 % Neutrophils # 3.1 (1.3-7.7) k/uL Lymphocytes # 1.9 (1.0-4.8) k/uL Monocytes # 0.4 (0-1.0) k/uL Eosinophils # 0.1 (0-0.7) k/uL Basophils # 0.0 (0-0.2) k/uL Hypochromasia Slight Anisocytosis Slight PT (10.0-12.5) sec INR (<1.2) APTT (22.0-30.0) sec Sodium 139 (137-145) mmol/L Potassium 4.1 (3.5-5.1) mmol/L Chloride 107 (98-107) mmol/L Carbon Dioxide 27 (22-30) mmol/L Anion Gap 5 mmol/L BUN 20 H (7-17) mg/dL Creatinine 0.65 (0.52-1.04) mg/dL Est GFR (CKD-EPI)AfAm >90 (>60 ml/min/1.73 sqM) Est GFR (CKD-EPI)NonAf 87 (>60 ml/min/1.73 sqM) Glucose 92 (74-99) mg/dL Plasma Lactic Acid Satinder (0.7-2.0) mmol/L Calcium 9.9 (8.4-10.2) mg/dL Phosphorus 4.3 (2.5-4.5) mg/dL Magnesium 2.4 H (1.6-2.3) mg/dL Total Bilirubin 0.6 (0.2-1.3) mg/dL AST 29 (14-36) U/L ALT 25 (4-34) U/L Alkaline Phosphatase 79 (38-126) U/L Troponin I <0.012 (0.000-0.034) ng/mL Total Protein 7.2 (6.3-8.2) g/dL Albumin 4.6 (3.5-5.0) g/dL Blood Type Blood Type Recheck Bld Type Recheck Status Spec Expiration Date 05/08/24 05/08/24 05/08/24 Range/Units 05:00 05:34 05:34 WBC (3.8-10.6) k/uL RBC (3.80-5.40) m/uL Hgb (11.4-16.0) gm/dL Hct (34.0-46.0) % MCV (80.0-100.0) fL MCH (25.0-35.0) pg MCHC (31.0-37.0) g/dL RDW (11.5-15.5) % Plt Count (150-450) k/uL MPV Neutrophils % % Lymphocytes % % Monocytes % % Eosinophils % % Basophils % % Neutrophils # (1.3-7.7) k/uL Lymphocytes # (1.0-4.8) k/uL Monocytes # (0-1.0) k/uL Eosinophils # (0-0.7) k/uL Basophils # (0-0.2) k/uL Hypochromasia Anisocytosis PT 12.0 (10.0-12.5) sec INR 1.1 (<1.2) APTT 27.1 (22.0-30.0) sec Sodium (137-145) mmol/L Potassium (3.5-5.1) mmol/L Chloride (98-107) mmol/L Carbon Dioxide (22-30) mmol/L Anion Gap mmol/L BUN (7-17) mg/dL Creatinine (0.52-1.04) mg/dL Est GFR (CKD-EPI)AfAm (>60 ml/min/1.73 sqM) Est GFR (CKD-EPI)NonAf (>60 ml/min/1.73 sqM) Glucose (74-99) mg/dL Plasma Lactic Acid Satinder 1.1 (0.7-2.0) mmol/L Calcium (8.4-10.2) mg/dL Phosphorus (2.5-4.5) mg/dL Magnesium (1.6-2.3) mg/dL Total Bilirubin (0.2-1.3) mg/dL AST (14-36) U/L ALT (4-34) U/L Alkaline Phosphatase (38-126) U/L Troponin I (0.000-0.034) ng/mL Total Protein (6.3-8.2) g/dL Albumin (3.5-5.0) g/dL Blood Type A Positive Blood Type Recheck A Pos Bld Type Recheck Status No Spec Expiration Date 05/11/20242299 - EKG Data -: EKG Interpreted by Me (EKG is sinus 73 [place] 157 QRS 148 QTc 417) - Radiology Data Radiology results: report reviewed (CT abdomen pelvis negative for acute disease), image reviewed Disposition Clinical Impression: Vaginal bleeding, Dysfunctional uterine bleeding Disposition: HOME SELF-CARE Condition: Fair Instructions (If sedation given, give patient instructions): Dysmenorrhea (ED) Is patient prescribed a controlled substance at d/c from ED?: No Referrals: Fortino Souza DO [Primary Care Provider] - 1-2 days Jil Alford DO [Doctor of Osteopathic Medicine] - 1-2 days
[2024-05-08] MEDS: SODIUM CHLORIDE 0.9% 1,000 ML IV STA (05:20)
[2024-05-08 05:40] LABS: Anisocytosis Slight; Basophils % (A) 0 %; Eosinophils # (A) 0.1 k/uL (0-0.7); Eosinophils % (A) 2 %; HCT 45.3 % (34.0-46.0); HGB 14.4 gm/dL (11.4-16.0); Hypochromasia Slight; Lymphocytes # (A) 1.9 k/uL (1.0-4.8); Lymphocytes % (A) 33 %; MCH 27.5 pg (25.0-35.0); MCHC 31.8 g/dL (31.0-37.0); MCV 86.7 fL (80.0-100.0); Mean Platelet Volume 7.3; Monocytes # (A) 0.4 k/uL (0-1.0); Monocytes % (A) 7 %; Neutrophils # (A) 3.1 k/uL (1.3-7.7); Neutrophils % (A) 54 %; Platelet Count 302 k/uL (150-450); RBC 5.23 m/uL (3.80-5.40); RDW 16.5 % (11.5-15.5); WBC 5.6 k/uL (3.8-10.6)
[2024-05-08 05:51] LABS: ALT 25 U/L (4-34); AST 29 U/L (14-36); African American GFR (CKD) >90 (>60 ml/min/1.73 sqM); Albumin 4.6 g/dL (3.5-5.0); Alkaline Phosphatase 79 U/L (38-126); Anion Gap 5 mmol/L; Blood Urea Nitrogen 20 mg/dL (7-17); Calcium 9.9 mg/dL (8.4-10.2); Carbon Dioxide 27 mmol/L (22-30); Chloride 107 mmol/L (98-107); Glucose 92 mg/dL (74-99); Magnesium 2.4 mg/dL (1.6-2.3); Non-African American GFR(CKD) 87 (>60 ml/min/1.73 sqM); Phosphorus 4.3 mg/dL (2.5-4.5); Potassium 4.1 mmol/L (3.5-5.1); Sodium 139 mmol/L (137-145); Total Bilirubin 0.6 mg/dL (0.2-1.3); Total Protein 7.2 g/dL (6.3-8.2)
[2024-05-08 06:07] LABS: INR 1.1 (<1.2); Partial Thromboplastin Time 27.1 sec (22.0-30.0)
[2024-05-08 07:05] LABS: Appearance,Urine Clear (Clear); Bilirubin,Urine Negative (Negative); Blood,Urine Moderate (Negative); Color,Urine Colorless; Glucose,Urine (UA) 3+ (Negative); Hyaline Casts,Urine 1 /lpf (0-2); Ketones,Urine Negative (Negative); Leukocyte Esterase,Urine Small (Negative); Mucus,Urine Rare /hpf; Nitrite,Urine Negative (Negative); Protein,Urine Negative (Negative); RBC,Urine 1 /hpf (0-5); Specific Gravity,Urine 1.037 (1.001-1.035); Squamous Epithelial Cell,Urine <1 /hpf (0-4); Urobilinogen,Urine <2.0 mg/dL (<2.0); WBC,Urine 4 /hpf (0-5)
--- NOTE | 2024-05-08 07:41 | CT ---
EXAMINATION TYPE: CT pelvis w con DATE OF EXAM: 05/08/2024 5:33 AM COMPARISON: Abdomen pelvis CT 03/01/2022. CLINICAL INDICATION: Female, 73 years old with history of vaginal bleeding, Patient comes in for vagi nal bleeding. Started around 0400. Per patient large amounts. H/o breast ca, TECHNIQUE: Contiguous axial scanning of the pelvis following administration of 100 ml Isovue 300 IV c ontrast. Coronal and sagittal reconstructions performed. CT DLP: 426.9 mGycm, Automated exposure control for dose reduction was used. FINDINGS: Moderate atherosclerotic calcifications in the visualized lower abdominal aorta Moderate stool burden. Normal appendix noted. There is mid to distal sigmoid diverticulosis without p ericolonic inflammatory change. Bladder only partially distended. Uterus anteverted. Punctate calcification at the fundus of the uter us probably a tiny fibroid calcification. Both ovaries are visualized. No evident adnexal mass. No abnormal fluid collection in the pelvis or pelvic lymphadenopathy. There is mild pelvic floor rela xation. Mild degenerative change right hip. Facet arthropathy lower lumbar spine with degenerative grade 1 an terolisthesis L4-L5. IMPRESSION: 1. THE UTERUS AND BOTH OVARIES ARE VISUALIZED. NO EVIDENT PELVIC OR ADNEXAL MASS IS IDENTIFIED. 2. MILD PELVIC FLOOR RELAXATION. 3. MID TO DISTAL SIGMOID DIVERTICULOSIS WITHOUT ACUTE DIVERTICULITIS. [facility], , 05/08/2024 7:39 AM
[2024-05-08 07:48] VITALS: PULSE 76; RESP 18
[2024-05-08 07:49] VITALS: BP 157/77
[2024-05-08 07:50] VITALS: TEMP 97.6
== END 2024-05-08 08:02 | disposition home or self-care (01) ==
LOC: EC 04:40
DX: N93.8 Other specified abnormal uterine and vaginal bleeding (principal); Z88.0 Allergy status to penicillin; Z88.1 Allergy status to other antibiotic agents; Z88.2 Allergy status to sulfonamides; Z88.6 Allergy status to analgesic agent; Z88.8 Allergy status to other drugs, medicaments and biological substances; Z87.891 Personal history of nicotine dependence
CPT/HCPCS: 36415; 93005; 86900; 86901; 86902; 80053; 83605; 83735; 84100; 84484; 85025; 85610; 85730; 86850; 86870; 86880; 81001; 72193; 99284; 96360; 96361 ×2; Q9967

== ENCOUNTER → 2024-07-27 | Outpatient (CLI) | payer MEDICARE, BC ==
--- NOTE | 2024-07-27 09:35 | US ---
EXAMINATION TYPE: US thyroid st tissue head/neck DATE OF EXAM: 07/27/2024 COMPARISON: 11/19/2022 CLINICAL INDICATION: Female, 74 years old with history of E04.1 SINGLE THYROID NODULE; TECHNIQUE: Grayscale and color Doppler imaging of the thyroid gland. FINDINGS: GLAND SIZE: Right Lobe: 4.4 x 1.7 x 1.3 cm Overall Parenchyma: homogeneous Left Lobe: 3.9 x 1.6 x 1.3 cm Overall Parenchyma: homogeneous Isthmus Thickness: 0.3 cm NODULES RIGHT: # of nodules measured on right: 1 1. 0.8 X 0.6 x 0.7 cm, upper lateral, spongiform, hypoechoic nodule, which is wider than tall, with smooth margins, without echogenic foci. TR 2. Prior size: 0.7 x 0.4 x 0.4 cm 2. Cystic structure seen. LEFT: # of nodules measured on left: 0 1. Subcentimeter hypoechoic / cystic area noted. ISTHMUS: # of nodules measured in the isthmus: 0 Bilateral neck scanned, no evidence of lymphadenopathy. Persistent homogeneous normal-sized thyroid. IMPRESSION: As above. Overall stable findings. No new suspicious nodules seen. 2017 ACR TI-RADS LEVEL: TI-RADS 2 - Not Suspicious: No FNA *Highest TI-RADS level nodule reported [email or web address] [facility], , 07/27/2024 9:33 AM
== END | disposition home or self-care (01) ==
LOC: RADUSWWP 09:04
PROVIDERS: ATTEND Family Medicine
DX: E04.1 Nontoxic single thyroid nodule (principal)
CPT/HCPCS: 76536

== ENCOUNTER → 2024-10-24 | Outpatient (CLI) | payer MEDICARE, BC ==
--- NOTE | 2024-10-24 10:33 | MM ---
Reason for Exam: Additional evaluation requested from prior study. Last screening mammogram was performed 12 month(s) ago. Patient History: Menarche at age 8. First Full-Term at age 22. Postmenopausal. Breast cancer, age 55. 02/15/2006, Mastectomy on the Right side. 2002, Benign Excisional Biopsy on the right side. 07/27/2000, Benign Excisional Biopsy on the right side. 2005, Chemotherapy. Maternal aunt had breast cancer, age 60. Prior Study Comparison: 10/13/2021 Left MG 3D diag mammo w/cad LT, [facility]. 10/19/2022 Left MG 3D diag mammo w/cad LT, [facility]. 10/24/2023 Left MG 3D diag mammo w/cad LT, [facility]. Tissue Density: Left: The breasts are heterogeneously dense, which may obscure small masses. Findings: Analyzed By CAD. There are small tiny benign round calcifications redemonstrated scattered throughout the left breast. No suspicious new mass or distortion in the left breast. Overall Assessment: Benign, BI-RAD 2 Management: Diagnostic Mammogram of the left breast in 1 year. . Results were given to the patient verbally at the time of exam. Patient should continue monthly self-breast exams. A clinical breast exam by your physician is recommended on an annual basis. This exam should not preclude additional follow-up of suspicious palpable abnormalities. Note on Michelle scores and lifetime risk: 1. A Michelle score greater than 3% is considered moderate risk. If this is the case, consider specialist referral to assess eligibility for a risk reducing agent. 2. If overall lifetime risk for the development of breast cancer is 20% or higher, the patient may qualify for future screening with alternating mammogram and breast MRI. [facility], , 10/24/2024 10:30 AM. Electronically signed and approved by: Carlos Dela Cruz M.D.
== END | disposition home or self-care (01) ==
LOC: RADMAMWWP 10:11
PROVIDERS: ATTEND Internal Medicine Hematology & Oncology
DX: C50.919 Malignant neoplasm of unspecified site of unspecified female breast (principal); D50.9 Iron deficiency anemia, unspecified; M25.529 Pain in unspecified elbow; J45.909 Unspecified asthma, uncomplicated; Z71.3 Dietary counseling and surveillance; R92.332 Mammographic heterogeneous density, left breast; Z80.3 Family history of malignant neoplasm of breast; Z78.0 Asymptomatic menopausal state; Z90.11 Acquired absence of right breast and nipple
CPT/HCPCS: 77065; G0279; 77061